=== PATIENT | female | born 1960 | race Caucasian/White ===

== ENCOUNTER 2019-02-03 22:08 | Observation (INO) | payer OTHER ==
--- OUTSIDE RECORDS SUMMARY | 2019-02-03 22:11 | XMS REPORT | Clinical Summary ---
:[address] [facility] Address [address] [place] [address] Care Team Providers Name Role Phone StephanieLambert Primary Care Provider Allergies Active Allergy Reactions Severity Noted Date Comments Johnnie Inhibitors Other (See Comments) High 01/19/2019 Cognitive stupor Codeine Rash Low 01/19/2019 Hydrocodone-Acetaminophe Rash Low 01/19/2019 n Metoprolol Other (See Comments) High 01/19/2019 Cognitive stupor Oxycodone Rash Low 01/19/2019 Promethazine Other (See Comments) High 01/19/2019 Visual hallucination Sulfa (Sulfonamide Hives, Shortness Of High 01/19/2019 Antibiotics) Breath Medications Medication Sig Dispensed Refills Start End Status Date Date zafirlukast Take 20 mg by 0 Active (ACCOLATE) 20 MG mouth 2 (two) tabletIndications: times daily. Maintenance Therapy for Asthma levothyroxine Take 100 mcg by 0 Active (SYNTHROID, mouth nightly. LEVOTHROID) 100 MCG tablet albuterol HFA Inhale 2 puffs by 0 Active (VENTOLIN HFA) 90 mouth via inhaler mcg/actuation inhaler every 6 (six) hours as needed for Wheezing. diclofenac (VOLTAREN) Apply 2 g 0 Active 1 % Gel topically daily as needed. levalbuterol (XOPENEX Inhale 1 puff by 0 Active HFA) 45 mcg/actuation mouth via inhaler inhaler every 6 (six) hours as needed for Wheezing. leflunomide (ARAVA) Take 20 mg by 0 Active 20 MG mouth nightly. tabletIndications: rheumatoid arthritis adalimumab Inject 40 mg 0 Active (HUMIRA,CF,) 40 subcutaneously mg/0.4 mL SyKt every 14 (fourteen) days. temazepam (RESTORIL) Take 30 mg by 0 Active 30 mg capsule mouth every night as needed for Sleep. vilazodone (VIIBRYD) Take 40 mg by 0 Active 20 mg mouth daily. tabletIndications: major depressive disorder dextroamphetamine Take 10 mg by 0 Active (DEXTROSTAT) 10 MG mouth 2 (two) tabletIndications: times daily Am Attention-Deficit and noon . Hyperactivity Disorder dextroamphetamine Take 5 mg by 0 Active (DEXTROSTAT) 5 MG mouth daily At tablet 1600 . QUEtiapine (SEROQUEL) Take 100 mg by 0 Active 100 MG tablet mouth nightly. QUEtiapine (SEROQUEL) Take 25 mg by 0 Active 25 MG tablet mouth every morning. divalproex (DEPAKOTE) Take 250 mg by 0 Active 250 MG 24 hr tablet mouth daily. divalproex (DEPAKOTE) Take 125 mg by 0 Active 125 MG EC tablet mouth At noon . irbesartan (AVAPRO) Take 300 mg by 0 Active 300 MG tablet mouth daily. rosuvastatin Take 40 mg by 0 Active (CRESTOR) 40 MG mouth nightly. tablet nitroglycerin Place 0.4 mg 0 Active (NITROSTAT) 0.4 MG SL under the tongue tablet every 5 (five) minutes as needed for Chest pain Put 1 pill under tongue every 5min as needed for chest pain.No more than 3 doses in 15min.Call 911 if pain is unrelieved 5min after 1st dose . acetaminophen Take 1,500 mg by 0 Active (TYLENOL) 500 MG mouth every night tablet as needed for Pain. docusate sodium Take 1 capsule 20 capsule 0 02/03/20 Active (COLACE) 100 MG (100 mg total) by 19 019 capsule mouth 2 (two) times daily as needed for Constipation for up to 10 days. aspirin/acetaminophen Take 1 tablet by 0 Discontinued /caffeine (EXCEDRIN mouth daily as 019 MIGRAINE ORAL) needed . acetaminophen Take 650 mg by 0 Discontinued (TYLENOL) 650 MG CR mouth every 8 019 tablet (eight) hours as needed for Pain. Active Problems Problem Noted Date DDD (degenerative disc disease), cervical 02/01/2019 Radiculopathy, cervical 02/01/2019 Cervical radiculopathy 02/01/2019 Encounters Date Type Specialty Care Team Description 02/02/2019 Outside Orders Radiology Guevara Evie M 02/01/2019 Anesthesia Event Dawn DeHEENA 02/01/2019 Surgery Mehran Griffith DISCECTOMY,ANTERIOR MD [place] CERVICAL W/FUSION 02/01/2019 - Hospital Encounter General Internal Mehran Griffith 02/02/2019 Medicine MD [place] 01/30/2019 Orders Only Mehran Griffith MD 01/19/2019 Hospital Encounter Pre-Admission Testing after 02/02/2018 Social History Tobacco Use Types Packs/Day Years Used Date Never Smoker Smokeless Tobacco: Never Used Alcohol Use Drinks/Week oz/Week Comments No Alcohol Habits Answer Date Recorded How often do you have a drink containing alcohol? Never 01/19/2019 How many drinks containing alcohol do you have on a typical Not asked day when you are drinking? How often do you have six or more drinks on one occasion? Not asked Sex Assigned at Date Recorded Not on file Job Start Date Occupation Industry Not on file Not on file Not on file Travel History Travel Start Travel End No recent travel history available. Last Filed Vital Signs Vital Sign Reading Time Taken Blood Pressure 121/64 02/02/2019 11:26 AM CDT Pulse 97 02/02/2019 11:26 AM CDT Temperature 36.8 C (98.3 F) 02/02/2019 11:26 AM CDT Respiratory Rate 18 02/02/2019 11:26 AM CDT Oxygen Saturation 93% 02/02/2019 11:26 AM CDT Inhaled Oxygen Concentration - - Weight 66.9 kg (147 lb 7.8 oz) 02/01/2019 7:41 AM CDT Height 160 cm (5' 3") 02/01/2019 7:41 AM CDT Body Mass Index 26.13 02/01/2019 7:41 AM CDT Plan of Treatment Not on file Implants Implanted Type Area Substance Abuse Therapist Device Shelf Model / Identifier Expiration Serial / Date Lot Bone Vivigen Matrix Frozen 1cc Bl-1500-001 - [id number] Bone N/A: Spine LIFENET:LIFENET 12/29/[id number] / Implanted: Qty: 1 on 02/01/2019 by Mehran Griffith MD Cervical TRANSPLANT SRV / [id number] Cage Acis 6mm 08.843.006s - [id number] Spine N/A: Spine SYNTHES:SYNTHES 08.843.006S / Implanted: Qty: 1 on 02/01/2019 by Mehran Griffith MD Cervical [place]: SPINE / [id number] Cage Acis 6mm 08.843.006s - [id number] Spine N/A: Spine SYNTHES:SYNTHES 08.843.006S / Implanted: Qty: 1 on 02/01/2019 by Mehran Griffith MD Cervical [place]: SPINE / [id number] Scr Cerv Sr Sd Va 4.0x16 Ti Ns 516 - [id number] Spine N/A: Spine SYNTHES:SYNTHES 516 / Implanted: Qty: 6 on 02/01/2019 by Mehran Griffith MD Cervical [place]: SPINE / Floseal N/A: Spine OSBORN 06/14/2020 [id number] / Implanted: Qty: 1 on 02/01/2019 by Mehran Griffith MD Cervical / [id number] 26 Mm Vectra Plate N/A: Spine Synthes 3.126 / Implanted: Qty: 1 on 02/01/2019 by Mehran Griffith MD Cervical / Procedures Procedure Name Priority Date/Time Associated Comments Diagnosis TRANSFUSION SERVICE 02/02/2019 6:01 REPORT - SCAN PM CDT XR SPINE CERVICAL 2 OR 3 ZAC 02/02/2019 9:19 Results for this VIEWS AM CDT procedure are in the results section. CBC W/PLT COUNT & AUTO Routine 02/02/2019 4:24 Results for this DIFFERENTIAL AM CDT procedure are in the results section. PHOSPHORUS Routine 02/02/2019 4:24 Results for this AM CDT procedure are in the results section. MAGNESIUM Routine 02/02/2019 4:24 Results for this AM CDT procedure are in the results section. BASIC METABOLIC PANEL Routine 02/02/2019 4:24 Results for this (7) AM CDT procedure are in the results section. CBC W/PLT COUNT & AUTO Routine 02/02/2019 4:24 Results for this DIFFERENTIAL AM CDT procedure are in the results section. [place] PROCESS DEVELOPMENT TECHNICIAN IN OR 30 STAT 02/01/2019 2:30 Results for this MINUTE INCREMENTS PM CDT procedure are in the results section. FL PROCESS DEVELOPMENT TECHNICIAN IN OR 30 Routine 02/01/2019 12:45 Results for this MINUTE INCREMENTS PM CDT procedure are in the results section. PROCEDURE W/ 02/01/2019 10:45 Cervical INTRAOPERATIVE AM CDT radiculopathy NEUROMONITORING Disc disease, degenerative, cervical Spondylolisthesis, cervical region Case Notes 2 HRSNo neuro monitoring scheduled at the time of posting this case Special Needs (SUPINE POSITION, C-ARM, MICROSCOPE, NEURO MONITORING: SSEP, MEP, REGULAR OR TABLE, DEPUY) PROCEDURE W/ 02/01/2019 10:45 AM Cervical radiculopathy OPERATING MICROSCOPE CDT Disc disease, degenerative, cervical Spondylolisthesis, cervical region Case Notes 2 HRSNo neuro monitoring scheduled at the time of posting this case Special Needs (SUPINE POSITION, C-ARM, MICROSCOPE, NEURO MONITORING: SSEP, MEP, REGULAR OR TABLE, DEPUY) PROCEDURE W/ C-ARM 02/01/2019 10:45 AM Cervical radiculopathy CDT Disc disease, degenerative, cervical Spondylolisthesis, cervical region Case Notes 2 HRSNo neuro monitoring scheduled at the time of posting this case Special Needs (SUPINE POSITION, C-ARM, MICROSCOPE, NEURO MONITORING: SSEP, MEP, REGULAR OR TABLE, DEPUY) DISCECTOMY,ANTERIOR 02/01/2019 10:45 Cervical radiculopathy CERVICAL W/INTERNAL AM CDT Disc disease, degenerative, cervical FIXATION Spondylolisthesis, cervical region Case Notes 2 HRSNo neuro monitoring scheduled at the time of posting this case Special Needs (SUPINE POSITION, C-ARM, MICROSCOPE, NEURO MONITORING: SSEP, MEP, REGULAR OR TABLE, DEPUY) DISCECTOMY,ANTERIOR 02/01/2019 10:45 Cervical radiculopathy CERVICAL W/FUSION AM CDT Disc disease, degenerative, cervical Spondylolisthesis, cervical region Case Notes 2 HRSNo neuro monitoring scheduled at the time of posting this case Special Needs (SUPINE POSITION, C-ARM, MICROSCOPE, NEURO MONITORING: SSEP, MEP, REGULAR OR TABLE, DEPUY) ABORH, MANUAL STAT 02/01/2019 9:24 AM CDT TYPE AND SCREEN, AUTOMATED Routine 02/01/2019 9:09 AM CDT after 02/02/2018 Results TRANSFUSION SERVICE REPORT - SCAN (02/02/2019 6:01 PM CDT) Narrative Performed At XR spine cervical 2 or 3 views (02/02/2019 9:19 AM CDT) Narrative Performed At FINAL REPORT [facility] Radiograph of the cervical spine Reason for exam: upright (standing or sitting), confirm hardware placement s/p ACDF Comparison:No priors Discussion: Status post ACDF at C5-C7 with plate and screw device, with placement of interbody spacers at C5-C6 and C6-C7. Vertebral body height is normal. There is mild anterolisthesis at C4-C5 and minimal retrolisthesis at C5-C6. No evidence of hardware fracture, or screw backout. There is prevertebral soft tissue edema, which is likely due to recent surgery. Signed: Juan Carlos Pickering MD Report Verified Date/Time:02/02/2019 10:03:49 Reading Location: [facility] Radiology Reading Room Procedure Note Interface, External Ris In - 02/02/2019 11:36 AM CDT FINAL REPORT Radiograph of the cervical spine Reason for exam: upright (standing or sitting), confirm hardware placement s/p ACDF Comparison: No priors Discussion: Status post ACDF at C5-C7 with plate and screw device, with placement of interbody spacers at C5-C6 and C6-C7. Vertebral body height is normal. There is mild anterolisthesis at C4-C5 and minimal retrolisthesis at C5-C6. No evidence of hardware fracture, or screw backout. There is prevertebral soft tissue edema, which is likely due to recent surgery. Signed: Juan Carlos Pickering MD Report Verified Date/Time: 02/02/2019 10:03:49 Reading Location: [facility] Radiology Reading Room Performing Organization Address City/State/Zipcode Phone Number [facility] CBC with platelet count + automated diff (02/02/2019 4:24 AM CDT) WBC 5.7 3.5 - 10.5 K/L [facility] RBC 4.15 3.93 - 5.22 M/L [facility] Hemoglobin 12.6 11.2 - 15.7 GM/DL [facility] Hematocrit 39.2 34.1 - 44.9 % [facility] MCV 94.5 79.4 - 94.8 fL [facility] MCH 30.4 25.6 - 32.2 pg [facility] MCHC 32.1 (L) 32.2 - 35.5 GM/DL [facility] RDW 13.8 11.7 - 14.4 % [facility] Platelets 144 (L) 150 - 450 K/CU MM [facility] MPV 12.9 (H) 9.4 - 12.3 fL [facility] nRBC 0 0 - 0 /100 WBC [facility] % Neutros 63 % [facility] % Lymphs 24 % [facility] % Monos 13 % [facility] % Eos 0 % [facility] % Baso 0 % [facility] # Neutros 3.56 1.56 - 6.13 K/L [facility] # Lymphs 1.37 1.18 - 3.74 K/L [facility] # Monos 0.71 (H) 0.24 - 0.36 K/L [facility] # Eos 0.00 (L) 0.04 - 0.36 K/L [facility] # Baso 0.02 0.01 - 0.08 K/L [facility] Immature Granulocytes-Relative 0 0 - 1 % [facility] Specimen Blood Performing Organization Address City/State/Zipcode Phone Number [address] [phone] CENTER Phosphorus (02/02/2019 4:24 AM CDT) Phosphorus 2.6 2.3 - 4.7 mg/dL [facility] Specimen Blood Performing Organization Address City/[facility]/Zipcode Phone Number [address] [address] CENTER Magnesium (02/02/2019 4:24 AM CDT) Magnesium 1.8 1.6 - 2.6 mg/dL [facility] Specimen Blood Performing Organization Address [facility] Phone Number [address] [phone] [place] Basic Metabolic Panel (02/02/2019 4:24 AM CDT) Sodium 139 136 - 145 meq/L [facility] Potassium 4.1 3.5 - 5.1 meq/L [facility] Chloride 110 (H) 98 - 107 meq/L [facility] CO2 22 22 - 29 meq/L [facility] BUN 13 7 - 21 mg/dL [facility] Creatinine 0.82 0.57 - 1.25 mg/dL [facility] Glucose 83 70 - 105 mg/dL [facility] Calcium 8.7 8.4 - 10.2 mg/dL [facility] EGFR 71Comment: ESTIMATED GFR IS mL/min/1.73 sq m [facility] NOT ACCURATE CREATININE MEDICAL CENTER CLEARANCE IN PREDICTING GLOMERULAR FILTRATION RATE. ESTIMATED GFR IS NOT APPLICABLE FOR DIALYSIS PATIENTS. Specimen Blood Performing Organization Address City/State/Zipcode Phone Number [address] [address] CENTER [place] radiation control specialist in or 30 minute increments (02/01/2019 2:30 PM CDT)Only the most recent of2 resultswithin the time period is included. Narrative Performed At FINAL REPORT [employer] Intraoperative fluoroscopy. CLINICAL HISTORY: ACDF C5-7 ANTERIOR. FINDINGS: Two fluoroscopically acquired images were acquired by the referring physician. An intraoperative verbal report was not requested. Fluoroscopy was not performed by the undersigned. Fluoroscopy time: 20 seconds. Two images. Signed: Delmar Shaikh MD Report Verified Date/Time:02/01/2019 15:45:42 Reading Location: [address] Consult Reading Room Procedure Note Interface, External Ris In - 02/01/2019 3:47 PM CDT FINAL REPORT Intraoperative fluoroscopy. CLINICAL HISTORY: ACDF C5-7 ANTERIOR. FINDINGS: Two fluoroscopically acquired images were acquired by the referring physician. An intraoperative verbal report was not requested. Fluoroscopy was not performed by the undersigned. Fluoroscopy time: 20 seconds. Two images. Signed: Delmar Shaikh MD Report Verified Date/Time: 02/01/2019 15:45:42 Reading Location: [address] Consult Reading Room Performing Organization Address City/[facility] Phone Number [employer] ABORH, manual (02/01/2019 9:24 AM CDT) ABO Grouping O [facility] Rh Factor POS [facility] Specimen Blood Performing Organization Address City/[facility] Phone Number [address] [address] [phone] Type and screen, automated (02/01/2019 9:09 AM CDT) ABO/RH AUTOMATED (BEAKER) O POSITIVE [facility] Ab Scrn NEGATIVE [facility] Specimen Blood Performing Organization Address [facility] Phone Number [address] [phone] after 02/02/2018 Insurance Payer Benefit Plan / Group Subscriber ID Type Phone Address [employer] - [place] CARE C[employer] HMO/POS/OPEN ACCESS xxxxxxxxxxx HMO/POS Advance Directives Patient has advance care planning documents, and code status on file. For more information, please contact:[address] [phone] Code Status Date Activated Date Inactivated Comments Full Code 02/01/2019 3:06 PM 02/02/2019 5:38 PM This code status was determined by: Patient Full Code 02/01/2019 8:07 AM 02/01/2019 3:06 PM This code status was determined by: Patient
--- OUTSIDE RECORDS SUMMARY | 2019-02-03 22:11 | XMS REPORT ---
:1960 [facility] Address [address] [place] [address] [address] [place] [address] Care Team Providers Name Role Phone LISE GRIFFITH Unavailable Unavailable Problems This patient has no known problems. Allergies, Adverse Reactions, Alerts This patient has no known allergies or adverse reactions. Medications This patient has no known medications. Results Test Description Test Time Test Comments Text Results Atomic Results Result Comments RAD, SPINE, 2019-02-02 10:03:00 Reason for FINAL REPORT PATIENT CERVICAL, 2 OR 3 exam:->upright ID: [id number] VIEWS (standing or sitting), Radiograph of the confirm hardware cervical spine Reason placement s/p for exam: upright ACDFShould this be (standing or sitting), performed at the confirm hardware bedside?->No placement s/p ACDF Comparison: No priors Discussion: [...] to recent surgery. Signed: Juan Carlos Pickering Verified Date/Time: 02/02/2019 10:03:49 Reading Location: [facility] Radiology Reading Room PHORUS 2019-02-02 06:25:00 Test Item Value Reference Range Comments PHOSPHORUS (BEAKER) (test zhbd=942) 2.6 mg/dL 2.3-4.7 [id number] 06:25:00 Test Item Value Reference Range Comments MAGNESIUM (BEAKER) (test ofgv=466) 1.8 mg/dL 1.6-2.6 BASIC METABOLIC [id number] 06:25:00 Test Item Value Reference Range Comments SODIUM (BEAKER) (test 139 meq/L 136-145 fcdb=276) POTASSIUM (BEAKER) (test 4.1 meq/L 3.5-5.1 poxf=631) CHLORIDE (BEAKER) (test 110 meq/L 98-107 mubb=580) CO2 (BEAKER) (test 22 meq/L 22-29 aycz=993) BLOOD UREA NITROGEN 13 mg/dL 7-21 (BEAKER) (test wbts=415) CREATININE (BEAKER) (test 0.82 mg/dL 0.57-1.25 cgyp=303) GLUCOSE RANDOM (BEAKER) 83 mg/dL 70-105 (test emqn=305) CALCIUM (BEAKER) (test 8.7 mg/dL 8.4-10.2 gmdz=508) EGFR (BEAKER) (test 71 mL/min/1.73 sq m ESTIMATED GFR IS NOT lhgg=9636) ACCURATE CREATININE CLEARANCE IN PREDICTING GLOMERULAR FILTRATION RATE. ESTIMATED GFR IS NOT APPLICABLE FOR DIALYSIS PATIENTS. CBC W/PLT COUNT & AUTO [id number] 05:52:00 Test Item Value Reference Range Comments WHITE BLOOD CELL COUNT (BEAKER) (test ttoc=098) 5.7 K/ L 3.5-10.5 RED BLOOD CELL COUNT (BEAKER) (test kchc=250) 4.15 M/ L 3.93-5.22 HEMOGLOBIN (BEAKER) (test zjgs=678) 12.6 GM/DL 11.2-15.7 HEMATOCRIT (BEAKER) (test ugda=659) 39.2 % 34.1-44.9 MEAN CORPUSCULAR VOLUME (BEAKER) (test zkat=809) 94.5 fL 79.4-94.8 MEAN CORPUSCULAR HEMOGLOBIN (BEAKER) (test 30.4 pg 25.6-32.2 ucmw=533) MEAN CORPUSCULAR HEMOGLOBIN CONC (BEAKER) (test 32.1 GM/DL 32.2-35.5 bfdf=413) RED CELL DISTRIBUTION WIDTH (BEAKER) (test 13.8 % 11.7-14.4 owvx=619) PLATELET COUNT (BEAKER) (test iiuf=154) 144 K/CU MM 150-450 MEAN PLATELET VOLUME (BEAKER) (test evcq=834) 12.9 fL 9.4-12.3 NUCLEATED RED BLOOD CELLS (BEAKER) (test 0 /100 WBC 0-0 haij=846) NEUTROPHILS RELATIVE PERCENT (BEAKER) (test 63 % iucc=430) LYMPHOCYTES RELATIVE PERCENT (BEAKER) (test 24 % artq=585) MONOCYTES RELATIVE PERCENT (BEAKER) (test 13 % olpq=525) EOSINOPHILS RELATIVE PERCENT (BEAKER) (test 0 % yasd=844) BASOPHILS RELATIVE PERCENT (BEAKER) (test 0 % coxm=298) NEUTROPHILS ABSOLUTE COUNT (BEAKER) (test 3.56 K/ L 1.56-6.13 ckmj=507) LYMPHOCYTES ABSOLUTE COUNT (BEAKER) (test 1.37 K/ L 1.18-3.74 tvey=418) MONOCYTES ABSOLUTE COUNT (BEAKER) (test 0.71 K/ L 0.24-0.36 ypqe=636) EOSINOPHILS ABSOLUTE COUNT (BEAKER) (test 0.00 K/ L 0.04-0.36 qtkw=815) BASOPHILS ABSOLUTE COUNT (BEAKER) (test 0.02 K/ L 0.01-0.08 isdg=311) IMMATURE GRANULOCYTES-RELATIVE PERCENT (BEAKER) 0 % 0-1 (test rzhu=4859) [place], C2 TACTICAL ANALYSIS TECHNICIAN IN OR/30 MINUTE [id number] 15:45:00Reason for exam:-> ACDF C5-7 ANTERIORFINAL REPORT Intraoperative fluoroscopy. CLINICAL HISTORY: ACDF C5-7 ANTERIOR. FINDINGS: Two fluoroscopically acquired images were acquired by the referring physician. An intraoperative verbal report was not requested. Fluoroscopy was not performed by the undersigned. Fluoroscopy time: 20 seconds. Two images. Signed: Delmar Shaikh MDReport Verified Date/Time: 02/01/2019 15:45:42 Reading Location: [address] Consult Reading Room [place], C2 TACTICAL ANALYSIS TECHNICIAN IN OR/30 MINUTE [id number] 12: 46:00Reason for exam:->Cervical radiculopathyFINAL REPORT Cervical spine. CLINICAL HISTORY: Cervical radiculopathy. COMPARISON STUDY: None. FINDINGS: A single, lateral intraoperative fluoroscopically acquired image is submitted for interpretation. A radiopaque marker is seen anteriorly at the C6/C7 level. An intraoperativeverbal report was given to Dr. Griffith who is in agreement. Signed: Delmar Shaikh MDReport Verified Date/Time: 02/01/2019 12:46:41 Reading Location: [address] Consult Reading Room
[2019-02-03] MEDS ORDERED: TRAMADOL HCL 50 MG TAB ONE (23:13)
[2019-02-03 23:26] LABS: Absolute Lymphocytes (CBC) 2.1 K/uL (0.7-4.9); Absolute Monocytes 0.7 K/uL (0.1-1.3); Absolute Neutrophil 1.5 K/uL (1.8-8.0); Basophils % 0.7 % (0-1.3); Eosinophils % 3.7 % (0-4.4); Lymphocytes % 47.5 % (15.3-44.8); MPV 11.6 fL (7.6-11.3); Protime INR 1.1; RBC Red Blood Cell Count 4.16 M/uL (3.86-4.86)
[2019-02-03 23:41] LABS: ALT/SGPT 14 U/L (12-78); AST/SGOT 25 U/L (15-37); Albumin 3.2 g/dL (3.4-5.0); Alkaline Phosphatase 108 U/L (45-117); BUN Blood Urea Nitrogen 11 mg/dL (7-18); Bicarbonate 26 mmol/L (21-32); Bilirubin Direct 0.1 mg/dL (0-0.2); Bilirubin Total 0.3 mg/dL (0.2-1.0); Glucose Level 84 mg/dL (74-106); Magnesium 1.9 mg/dL (1.8-2.4); NT PRO-BNP 202 pg/mL (<125); Potassium 3.6 mmol/L (3.5-5.1); Protein, Total 7.6 g/dL (6.4-8.2); Sodium Level 141 mmol/L (136-145); Troponin (Emerg Dept Use Only) < 0.02 ng/mL (0.0-0.045)
[2019-02-04 00:31] LABS: Barbiturates NEGATIVE (NEGATIVE); Benzodiazepines POSITIVE (NEGATIVE); Cocaine NEGATIVE (NEGATIVE); METHAMPHETAM NEGATIVE (NEGATIVE); Methadone NEGATIVE (NEGATIVE); Opiates NEGATIVE (NEGATIVE); Phencyclidine NEGATIVE (NEGATIVE); THC Cannibis NEGATIVE (NEGATIVE)
[2019-02-04 00:51] LABS: Urine Blood 1+ (NEG); Urine Glucose NEGATIVE (NEG); Urine Specific Gravity 1.015 (1.005-1.030)
[2019-02-04 00:52] LABS: Urine Protein NEGATIVE (NEG); Urine pH 7.5 (5.0-7.0)
--- NOTE | 2019-02-04 01:23 | ER ---
Nurse's Notes [facility] Name: Angelica Daily Age: 58 yrs Sex: Female : 1960 Arrival Date: 02/03/2019 Time: 22:12 Bed 4 Private MD: Diagnosis: Altered mental status. S/P Neck surgery Presentation: 02/03 21:54 Presenting complaint: EMS states: Family reports pt suddenly became altered and was ea swaying while getting ready for bed, pt had neck surgery on Wednesday family denies prior history of confusion. EMS states upon arrival pt remained confused for about 20 minutes and then symptoms subsided. EMS reports pt was swaying while standing but did not have weakness on either extremity and speech was clear. Transition of care: patient was not received from another setting of care. Onset of symptoms was February 03, 2019. Risk Assessment: Do you want to hurt yourself or someone else? Patient reports no desire to harm self or others. Initial Sepsis Screen: Does the patient meet any 2 criteria? HR > 90 bpm. Does the patient have a suspected source of infection? No. Patient's initial sepsis screen is negative. Care prior to arrival: None. 21:54 Method Of Arrival: EMS: [facility] ea 21:54 Acuity: ILIR 3 ea Triage Assessment: 21:54 General: Appears in no apparent distress. Behavior is appropriate for age. Pain: ea Complains of pain in neck. EENT: Surgical incision to neck, pt reports she had C-spine repair. . Neuro: Level of Consciousness is awake, alert, obeys commands, Oriented to person, place, time, situation, Secretary Bookkeeper are equal bilaterally Moves all extremities. Speech is normal, Facial symmetry appears normal. Cardiovascular: Patient's skin is warm and dry. Respiratory: Airway is patent Respiratory effort is even, unlabored, Respiratory pattern is regular, symmetrical. Derm: Skin is dry, Skin is pale, Skin temperature is warm. Historical: - Allergies: 22:39 Sulfacetamide Sodium; ea 22:39 Hydrocodone-Acetaminophen; ea 22:39 Oxycodone; ea 22:39 Codeine; ea 22:39 Phenergan; ea 22:39 DARRYL INHIBITORS; ea 22:39 HIgh tolerance to PO Benadryl; ea 22:39 Multi foods and inhalants; ea - Home Meds: 22:48 Excedrine Migraine [Active]; Tylenol Extra Strength 500 mg oral tab as needed [Active]; ea Accolate 20 mg Oral tab 1 tab 2 times per day [Active]; levothyroxine 100 mcg tab 1 tab once daily [Active]; Proventil Inhl [Active]; voltarin gel topical [Active]; Xopenex 1.25 mg/3 mL Inhl nebu as needed [Active]; leflunomide 20 mg oral tab 1 tab once daily [Active]; Humira subcutaneous subcutaneous [Active]; Restoril 30 mg Oral cap 1 cap once daily [Active]; Viibryd 20 mg oral tab once daily [Active]; dextroamphetamine oral oral [Active]; Seroquel 25 mg Oral tab 1 tab 2 times per day [Active]; Depakote ER 250 mg Oral Tb24 [Active]; irbesartan 300 mg oral tab 1 tab once daily [Active]; rosuvastatin 40 mg oral tab 1 tab once daily [Active]; nitroglycerin 0.4 mg SL subl 1 tab as needed [Active]; - PMHx: 22:39 Hypertension; Asthma; ankylosing spondylitis arthritis; Rheumatoid Arthritis; ADHD; ea Depression; Migraines; Crohn's; Hypothyroidism; - PSHx: 22:39 Left arm surgery; sinus surgery; ea - Immunization history:: Adult Immunizations up to date. - Social history:: Smoking status: Patient/guardian denies using tobacco. - Ebola Screening: : No symptoms or risks identified at this time. Screenin:25 Abuse screen: Denies threats or abuse. Nutritional screening: No deficits noted. ea Tuberculosis screening: No symptoms or risk factors identified. Fall Risk Secondary diagnosis (15 points) impaired mobility. Assessment: 21:54 Reassessment: see triage assesment. ea 22:45 Reassessment: Patient appears in no apparent distress at this time. Patient is alert, rr5 oriented x 3, equal unlabored respirations, skin warm/dry/pink. complaints of headache. ED provider aware with order made and carried out. 23:35 Reassessment: Patient appears in no apparent distress at this time. came back from CT rr5 scan, placed on bed comfortably. 02/04 00:00 Reassessment: Patient and/or family updated on plan of care and expected duration. Pain ea level reassessed. Patient is alert, oriented x 3, equal unlabored respirations, skin warm/dry/pink. 01:15 Reassessment: Patient appears in no apparent distress at this time. complaining of rr5 headache. ED provider informed with order made and carried out. 01:50 Reassessment: Patient and/or family updated on plan of care and expected duration. Pain ea level reassessed. Patient is alert, oriented x 3, equal unlabored respirations, skin warm/dry/pink. 02:00 Reassessment: Patient appears in no apparent distress at this time. Patient is alert, rr5 oriented x 3, equal unlabored respirations, skin warm/dry/pink. awaiting for room assignment. no complaints made. 02:15 Reassessment: Patient appears in no apparent distress at this time. Patient is alert, rr5 oriented x 3, equal unlabored respirations, skin warm/dry/pink. Patient states feeling better. Patient states symptoms have improved. 02:28 Reassessment: Patient and/or family updated on plan of care and expected duration. Pain ea level reassessed. Patient is alert, oriented x 3, equal unlabored respirations, skin warm/dry/pink. 03:09 Reassessment: Patient appears in no apparent distress at this time. Patient is alert, rr5 oriented x 3, equal unlabored respirations, skin warm/dry/pink. pain score of 2/10 much better now as verbalized by the patient Patient states feeling better. Patient states symptoms have improved. 03:14 Reassessment: Report called to receiving nurse on fourth floor. ea Vital Signs: 02/03 21:58 BP 128 / 75; Pulse 96; Resp 18; Temp 97.8; Pulse Ox 95% on R/A; ea 22:45 BP 140 / 82; Pulse 83; Resp 17; Pulse Ox 99% ; Pain 8/10; rr5 23:00 BP 140 / 82; Pulse 83; Resp 18; Pulse Ox 96% on R/A; ea 02/04 00:00 Pain 2/10; rr5 01:20 BP 121 / 72; Pulse 97; Resp 18; Pulse Ox 97% on R/A; ea 02:00 BP 118 / 77; Pulse 90; Resp 18; Pulse Ox 97% ; ea 03:09 BP 116 / 76; Pulse 82; Resp 17; Pulse Ox 99% ; rr5 03:09 Pain 2/10; rr5 ED Course: 02/03 21:54 Patient has correct armband on for positive identification. Bed in low position. Call ea light in reach. Side rails up X2. 21:54 Maintain EMS IV. Dressing intact. Good blood return noted. Site clean \T\ dry. Gauge \T\ ea site: 20 Left forearm. 22:12 Patient arrived in ED. fc 22:22 Triage completed. ea 22:23 Patient placed in an exam room, on a stretcher, on pulse oximetry. ea 22:31 Braulio June MD is Attending Physician. pkl 22:35 Garrison Barba, ZAIRA is Primary Nurse. rr5 22:59 XRAY Chest (1 view) In Process Unspecified. EDMS 23:37 CT Head Brain wo Cont In Process Unspecified. EDMS 02/04 01:21 Chano Landers MD is Hospitalizing Provider. pkl 02:27 No provider procedures requiring assistance completed. Patient admitted, IV remains in ea place. Administered Medications: 02/03 23:00 Drug: traMADol 50 mg Route: PO; rr5 02/04 00:00 Follow up: Response: No adverse reaction; Pain is decreased ea 01:20 Drug: Zofran 4 mg Route: IVP; Site: left forearm; rr5 02:33 Follow up: Response: No adverse reaction; Marked relief of symptoms ea 01:22 Drug: morphine 4 mg Route: IVP; Site: left forearm; rr5 02:32 Follow up: Response: No adverse reaction; Pain is decreased ea Outcome: 01:22 Decision to Hospitalize by Provider. pkl 01:50 Instructed on the need for admit. ea 03:12 Admitted to Med/surg accompanied by tech, room 413, with chart, Report called to ea Receiving nurse on fourth. 03:12 Condition: stable 03:25 Patient left the ED. cc3 Signatures: Dispatcher [employer] EDAL Braulio June MD MD pkSophie Donis RN RN Cinda Cerda RN RN Sheba Sims cc3 Garrison Barba, ZAIRA RN rr5
--- NOTE | 2019-02-04 01:23 | EDPHYS ---
Physician Documentation [facility] Name: Angelica Daily Age: 58 yrs Sex: Female : 1960 Arrival Date: 02/03/2019 Time: 22:12 Bed 4 Private MD: ED Physician Braulio June HPI: 02/03 22:45 This 58 yrs old Female presents to ER via EMS with unknown complaint. pkl 22:45 The patient presents with confusion, trouble concentrating. Onset: The symptoms/episode pkl began/occurred just prior to arrival. Patient had neck surgery 2 days ago. Took Dilaudid pill for pain at about 7 PM. At about 9 PM, patient became confused and unable to remember what is going on. EMS was called, patient remaioned confused for another 20 mins. and then symptoms subsided.. Historical: - Allergies: 22:39 Sulfacetamide Sodium; ea 22:39 Hydrocodone-Acetaminophen; ea 22:39 Oxycodone; ea 22:39 Codeine; ea 22:39 Phenergan; ea 22:39 DARRYL INHIBITORS; ea 22:39 HIgh tolerance to PO Benadryl; ea 22:39 Multi foods and inhalants; ea - Home Meds: 22:48 Excedrine Migraine [Active]; Tylenol Extra Strength 500 mg oral tab as needed [Active]; ea Accolate 20 mg Oral tab 1 tab 2 times per day [Active]; levothyroxine 100 mcg tab 1 tab once daily [Active]; Proventil Inhl [Active]; voltarin gel topical [Active]; Xopenex 1.25 mg/3 mL Inhl nebu as needed [Active]; leflunomide 20 mg oral tab 1 tab once daily [Active]; Humira subcutaneous subcutaneous [Active]; Restoril 30 mg Oral cap 1 cap once daily [Active]; Viibryd 20 mg oral tab once daily [Active]; dextroamphetamine oral oral [Active]; Seroquel 25 mg Oral tab 1 tab 2 times per day [Active]; Depakote ER 250 mg Oral Tb24 [Active]; irbesartan 300 mg oral tab 1 tab once daily [Active]; rosuvastatin 40 mg oral tab 1 tab once daily [Active]; nitroglycerin 0.4 mg SL subl 1 tab as needed [Active]; - PMHx: 22:39 Hypertension; Asthma; ankylosing spondylitis arthritis; Rheumatoid Arthritis; ADHD; ea Depression; Migraines; Crohn's; Hypothyroidism; - PSHx: 22:39 Left arm surgery; sinus surgery; ea - Immunization history:: Adult Immunizations up to date. - Social history:: Smoking status: Patient/guardian denies using tobacco. - Ebola Screening: : No symptoms or risks identified at this time. ROS: 22:45 Eyes: Negative for injury, pain, redness, and discharge, ENT: Negative for injury, pkl pain, and discharge, Neck: Negative for injury, pain, and swelling, Cardiovascular: Negative for chest pain, palpitations, and edema, Respiratory: Negative for shortness of breath, cough, wheezing, and pleuritic chest pain, Abdomen/GI: Negative for abdominal pain, nausea, vomiting, diarrhea, and constipation, Back: Negative for injury and pain, : Negative for injury, bleeding, discharge, and swelling, MS/Extremity: Negative for injury and deformity, Skin: Negative for injury, rash, and discoloration. 22:45 Neuro: Positive for altered mental status, confusion.. Exam: 22:45 Head/Face: Normocephalic, atraumatic. Eyes: Pupils equal round and reactive to light, pkl extra-ocular motions intact. Lids and lashes normal. Conjunctiva and sclera are non-icteric and not injected. Cornea within normal limits. Periorbital areas with no swelling, redness, or edema. ENT: Nares patent. No nasal discharge, no septal abnormalities noted. Tympanic membranes are normal and external auditory canals are clear. Oropharynx with no redness, swelling, or masses, exudates, or evidence of obstruction, uvula midline. Mucous membranes moist. Neck: Trachea midline, no thyromegaly or masses palpated, and no cervical lymphadenopathy. Supple, full range of motion without nuchal rigidity, or vertebral point tenderness. No Meningismus. Chest/axilla: Normal chest wall appearance and motion. Nontender with no deformity. No lesions are appreciated. Cardiovascular: Regular rate and rhythm with a normal S1 and S2. No gallops, murmurs, or rubs. Normal PMI, no JVD. No pulse deficits. Respiratory: Lungs have equal breath sounds bilaterally, clear to auscultation and percussion. No rales, rhonchi or wheezes noted. No increased work of breathing, no retractions or nasal flaring. Abdomen/GI: Soft, non-tender, with normal bowel sounds. No distension or tympany. No guarding or rebound. No evidence of tenderness throughout. Back: No spinal tenderness. No costovertebral tenderness. Full range of motion. Skin: Warm, dry with normal turgor. Normal color with no rashes, no lesions, and no evidence of cellulitis. MS/ Extremity: Pulses equal, no cyanosis. Neurovascular intact. Full, normal range of motion. 22:45 Neuro: Orientation: appropriate for stated age, Mentation: is normal, Cranial nerves: grossly normal, Cerebellar function: normal finger to nose testing, heel to estrada testing is normal, Motor: is normal, Sensation: is normal. Vital Signs: 21:58 BP 128 / 75; Pulse 96; Resp 18; Temp 97.8; Pulse Ox 95% on R/A; ea 22:45 BP 140 / 82; Pulse 83; Resp 17; Pulse Ox 99% ; Pain 8/10; rr5 23:00 BP 140 / 82; Pulse 83; Resp 18; Pulse Ox 96% on R/A; ea 02/04 00:00 Pain 2/10; rr5 01:20 BP 121 / 72; Pulse 97; Resp 18; Pulse Ox 97% on R/A; ea 02:00 BP 118 / 77; Pulse 90; Resp 18; Pulse Ox 97% ; ea 03:09 BP 116 / 76; Pulse 82; Resp 17; Pulse Ox 99% ; rr5 03:09 Pain 2/10; rr5 MDM: 0405 22:31 Patient medically screened. pkl 02/04 01:20 Data reviewed: vital signs, nurses notes, lab test result(s), EKG, radiologic studies, pkl CT scan. 02/03 22:41 Order name: Basic Metabolic Panel; Complete Time: 00:53 pkl 02/03 22:41 Order name: CBC with Diff; Complete Time: 00:53 pkl 02/03 22:41 Order name: LFT's; Complete Time: 00:53 pkl 02/03 22:41 Order name: Magnesium; Complete Time: 00:53 pkl 02/03 22:41 Order name: NT PRO-BNP; Complete Time: 00:53 pkl 02/03 22:41 Order name: PT-INR; Complete Time: 00:53 pkl 02/03 22:41 Order name: Troponin (emerg Dept Use Only); Complete Time: 00:53 pkl 02/03 22:41 Order name: XRAY Chest (1 view) pkl 02/03 22:41 Order name: CT Head Brain wo Cont pkl 02/03 22:42 Order name: UDS; Complete Time: 00:53 pkl 02/04 00:39 Order name: Urine Dipstick--Ancillary (enter results); Complete Time: 00:53 cm6 04 22:41 Order name: EKG; Complete Time: 22:42 pkl 02/03 22:41 Order name: Cardiac monitoring; Complete Time: 22:54 pkl 02/03 22:41 Order name: EKG - Nurse/Tech; Complete Time: 22:55 pkl 02/03 22:41 Order name: IV Saline Lock; Complete Time: 23:12 pkl 02/03 22:41 Order name: Labs collected and sent; Complete Time: 23:12 pkl 02/03 22:41 Order name: O2 Per Protocol; Complete Time: 22:55 pkl 02/03 22:41 Order name: O2 Sat Monitoring; Complete Time: 22:55 pkl Administered Medications: 02/03 23:00 Drug: traMADol 50 mg Route: PO; rr5 02/04 00:00 Follow up: Response: No adverse reaction; Pain is decreased ea 01:20 Drug: Zofran 4 mg Route: IVP; Site: left forearm; rr5 02:33 Follow up: Response: No adverse reaction; Marked relief of symptoms ea 01:22 Drug: morphine 4 mg Route: IVP; Site: left forearm; rr5 02:32 Follow up: Response: No adverse reaction; Pain is decreased ea Disposition: 02/04/19 01:22 Hospitalization ordered by Chano Landers for Observation. Preliminary diagnosis is Altered mental status. S/P Neck surgery. - Bed requested for Telemetry/MedSurg (observation). - Status is Observation. cc3 - Condition is Stable. - Problem is new. - Symptoms have improved. UTI on Admission? No Signatures: Dispatcher [employer] EDMS Braulio June MD MD pkl Garcia, Cindy RN Cinda Gabriel RN RN ea Cordel, Charlene cc3 Garrison Barba RN RN rr5 Corrections: (The following items were deleted from the chart) 03:04 01:22 Hospitalization Ordered by Chano Landers MD for Observation. Preliminary cg diagnosis is Altered mental status. S/P Neck surgery. Bed requested for Telemetry/MedSurg (observation). Status is Observation. Condition is Stable. Problem is new. Symptoms have improved. UTI on Admission? No. pkl 03:25 03:04 02/04/2019 01:22 Hospitalization Ordered by Chano Landers MD for Observation. cc3 Preliminary diagnosis is Altered mental status. S/P Neck surgery. Bed requested for Telemetry/MedSurg (observation). Status is Observation. Condition is Stable. Problem is new. Symptoms have improved. UTI on Admission? No. cg
[2019-02-04] MEDS ORDERED: ONDANSETRON 4 MG/2 ML VIAL ONE (01:25)
[2019-02-04] MEDS ORDERED: MORPHINE 4 MG/ML SYR ONE (01:25)
[2019-02-04] MEDS ORDERED: ACETAMINOPHEN 500 MG TAB PO PRN ×2 (03:50→13:32)
[2019-02-04] MEDS ORDERED: ONDANSETRON 4 MG/2 ML VIAL IV PRN (03:50)
[2019-02-04] MEDS ORDERED: TRAMADOL HCL 50 MG TAB PO PRN (03:50)
[2019-02-04] MEDS ORDERED: NA CHLORIDE 0.9% 1,000 ML IV SCH (03:50)
[2019-02-04 05:10] VITALS: BMI 26.9
--- NOTE | 2019-02-04 05:45 | P.HP ---
Certification for Inpatient Patient admitted to: Observation With expected LOS: <2 Midnights Practitioner: I am a practitioner with admitting privileges, knowledge of patient current condition, hospital course, and medical plan of care. Services: Services provided to patient in accordance with Admission requirements found in Title 42 Section 412.3 of the Code of Federal Regulations Patient History Date of Service: 02/04/19 Reason for admission: altered mental status History of Present Illness: Ms Daily is a 58 years old woman with multiple medical problems, who about 3 days ago had C-spine surgery, came to ED due to a transient episode of altered mental status. The patient took oral hydromorphone this afternoon, then she become confused for about 20 minutes. This medication is new for her since surgery. The patient denied any weakness, tingling or numbness. She has nor evident focal deficit. No history of fever or chills. Lab work shown normal WBC count, stable vital signs, CT head without acute abnormalities. At my encounter , the patient was alert and oriented. Allergies hydrocodone Allergy (Verified 10/02/16 08:48) Rash ragweed pollen Allergy (Verified 02/04/19 03:41) Shortness of breath Sulfa (Sulfonamide Antibiotics) Allergy (Verified 10/02/16 08:48) Hives/Rash DARRYL Inhibitors Adverse Reaction (Verified 02/04/19 03:41) Shortness of breath codeine Adverse Reaction (Verified 10/02/16 08:48) Nausea/Vomiting milk Adverse Reaction (Verified 02/04/19 03:41) Nausea/Vomiting promethazine [From Phenergan] Adverse Reaction (Verified 10/02/16 08:48) visual hallucinations Home medications list reviewed: Yes Home Medications: Acetaminophen [Tylenol Extra Strength] 500 mg PO DAILY PRN 10/02/16 Albuterol Inhaler [Ventolin Inhaler] 2 puff IH Q6H PRN 10/02/16 Dextroamphetamine Sulfate [Zenzedi] 5 mg PO DAILY 10/02/16 Dextroamphetamine Sulfate [Zenzedi] 10 mg PO BID 10/02/16 Divalproex ER [Depakote *ER*] 250 mg PO DAILY WITH BREAKFAST 10/02/16 Divalproex [Depakote Sprinkle] 125 mg PO BEDTIME 10/02/16 Levalbuterol [Xopenex] 1 puff IH Q6H PRN 10/02/16 Levothyroxine [Synthroid] 100 mcg PO [id number] 10/02/16 Quetiapine [Seroquel] 25 mg PO DAILY WITH BREAKFAST 10/02/16 Quetiapine [Seroquel] 100 mg PO BEDTIME 10/02/16 Temazepam [Restoril] 30 mg PO BEDTIME PRN 10/02/16 Zafirlukast [Accolate] 20 mg PO BID 10/02/16 Albuterol Sulfate [Proventil Hfa] 2 puff IH PRN 02/04/19 Diclofenac Sodium [Voltaren] 02/04/19 Diclofenac Sodium [Voltaren] 1 luís TOP DAILY 02/04/19 Irbesartan [Avapro] 300 mg PO DAILY 02/04/19 Nitroglycerin [Nitrostat*] 0.4 mg SL PRN PRN 02/04/19 Rosuvastatin [Crestor*] 40 mg PO DAILY 02/04/19 Vilazodone HCl [Viibryd] 20 mg PO DAILY 02/04/19 - Past Medical/Surgical History Has patient received pneumonia vaccine in the past: No Diabetic: No -: HTN -: tachycardia -: RA -: Asthma -: Ankylosing sondylitis arthritis -: ADHD -: depression -: migraines -: crohns -: sinus sx -: neck sx -: left arm sx - Family History Father -: Heart disease, Hypertension Mother -: Stroke - Social History Smoking Status: Never smoker Alcohol use: Yes CD- Drugs: No Caffeine use: Yes Place of Residence: Home Review of Systems 10-point ROS is otherwise unremarkable Physical Examination - Vital Signs Temperature: 98 F Blood Pressure: 116/59 Pulse: 85 Respirations: 16 Pulse Ox (%): 92 - Physical Exam General: Alert, In no apparent distress HEENT: Atraumatic, PERRLA, Mucous membr. moist/pink, EOMI, Sclerae nonicteric Neck: 2+ carotid pulse no bruit, No LAD Respiratory: Clear to auscultation bilaterally, Normal air movement Cardiovascular: Regular rate/rhythm, Normal S1 S2 Gastrointestinal: Normal bowel sounds, No tenderness Musculoskeletal: No tenderness Integumentary: No rashes, Skin lesion (right side neck surgical wound healing, clean.) Neurological: Normal speech, Normal strength at 5/5 x4 extr, Normal tone, Normal affect Lymphatics: No axilla or inguinal lymphadenopathy - Studies Laboratory Data (last 24 hrs) 02/03/19 11:10: PT 12.9 H, INR 1.10 02/03/19 11:10: WBC 4.4, Hgb 12.3, Hct 38.0, Plt Count 130 L 02/03/19 11:10: Sodium 141, Potassium 3.6, BUN 11, Creatinine 0.78, Glucose 84, Magnesium 1.9, Total Bilirubin 0.3, AST 25, ALT 14, Alkaline Phosphatase 108 Assessment and Plan - Problems (Diagnosis) (1) Acute encephalopathy Current Visit: Yes Status: Acute (2) Rheumatoid arthritis Current Visit: Yes Status: Acute Qualifiers: Rheumatoid arthritis location: unspecified site Rheumatoid factor presence : unspecified presence Qualified Code(s): M06.9 - Rheumatoid arthritis, unspecified (3) HTN (hypertension) Current Visit: Yes Status: Acute Qualifiers: Hypertension type: essential hypertension Qualified Code(s): I10 - Essential (primary) hypertension (4) ADHD Current Visit: Yes Status: Acute Qualifiers: Attention deficit-hyperactivity disorder type: unspecified Qualified Code(s ): F90.9 - Attention-deficit hyperactivity disorder, unspecified type - Plan Will admit the patient due to transient AMS, CT head without acute abnormalities , most likely medication related. Will order Brain MRI to rule out acute neurovascular event, if is normal, she may go home this AM. - Advance Directives Does patient have a Living Will: Yes Does patient have a Durable POA for Healthcare: Yes - Code Status/Comfort Care Code Status Assessed: Yes Code Status: Full Code
--- NOTE | 2019-02-04 07:46 | RAD REPORT ---
EXAM DESCRIPTION: RAD - Chest Single View - 02/03/2019 10:59 pm CLINICAL HISTORY: Altered mental status, hypertension COMPARISON: January 11, 2019 TECHNIQUE: AP portable chest image was obtained 2257 hours . FINDINGS: Scarring or linear atelectasis seen lateral lower right lung field. No mass or consolidati on. No failure or volume overload. Heart and vasculature are normal. No measurable pleural effusion a nd no pneumothorax. No acute bony abnormality seen. No acute aortic findings suspected. IMPRESSION: Atelectasis versus scarring right lung base.
--- NOTE | 2019-02-04 11:54 | RAD REPORT ---
EXAM DESCRIPTION: CT - Head Brain Wo Cont - 02/04/2019 1:27 am CLINICAL HISTORY: 58 years old and is Female; altered mental status TECHNIQUE: Axial computed tomography images of the head/brain without intravenous contrast. Sagitt al and coronal reformatted images were created and reviewed. EXAM COMPLETED DATE AND APPROX. TIME: 02/03/2019 11:[address] exam was performed using one or more of the following dose reducti on techniques: automated exposure control, adjustment of the mA and/or kV according to patient size , and/or use of iterative reconstruction technique. COMPARISON: No relevant prior studies available. FINDINGS: Limitations: None. Brain: Unremarkable. No hemorrhage. No significant white matter disease. No edema. Ventricles: Unremarkable. No ventriculomegaly. Bones/joints: Unremarkable. No acute fracture. Soft tissues: Unremarkable. Sinuses: There is mild ethmoid sinus thickening. Postoperative changes of the maxillary sinuses present. Mastoid air cells: Unremarkable as visualized. No mastoid effusion. IMPRESSION: No acute findings. Electronically signed by: Tanya Gamino MD 02/03/2019 11:41 PM CDT Due to temporary technical issues with the PACS/Fluency reporting system, reports are being signed by the in house radiologist as a courtesy to ensure prompt reporting. The interpreting radiologist is f ully responsible for the content of the report.
[2019-02-04] MEDS: TRAMADOL HCL 50 MG TAB PO PRN ×2 (13:00→21:11)
[2019-02-04] MEDS ORDERED: NITROGLYCERIN 0.4 MG/TAB SL PRN (13:32)
[2019-02-04] MEDS ORDERED: LEVALBUTEROL 0.63 MG/3 ML NEB IH PRN (13:32)
[2019-02-04] MEDS ORDERED: TEMAZEPAM 15 MG CAP PO PRN (13:32)
[2019-02-04] MEDS ORDERED: ALBUTEROL 2.5 MG/3 ML NEB SOL NEB PRN (15:45)
--- NOTE | 2019-02-04 17:29 | PN ---
Date of Progress Note: 02/04/2019 The patient feels fine this afternoon. According to her and her family, she is back at baseline. Th e question is whether or not it was a vascular insult and/or a reaction to medication. She was recei ving morphine IV postop, and then on discharge, she had some analgesics, which she took orally, and t he timing of the reaction to this was slightly prolonged, but the onset and the general clinical situ ation in the recovery is strongly suggestive of the reaction. She was therefore given tramadol 100 m g in attempt to avoid heavier narcotics. She will be re-evaluated with a CT scan in the morning and if it is negative, she could be discharged. An MRI was prevented to be done because of her recent noguera rgery, which had included some metal use in the neck. Remainder of vital signs are stable. She will be restarted on her home medication. HR/MODL Voice ID: [id number] Report ID: [id number]
[2019-02-04] MEDS ORDERED: ROSUVASTATIN 10 MG TAB PO SCH (21:00)
[2019-02-04] MEDS ORDERED: DIVALPROEX NA 125 MG CAP PO SCH (21:00)
[2019-02-04] MEDS: DEXTROAMPHETAMINE SULFATE 10 MG PO SCH (21:00)
[2019-02-04] MEDS ORDERED: QUETIAPINE 100MG TAB PO SCH (21:00)
[2019-02-04] MEDS: ZAFIRLUKAST 20 MG TAB PO SCH (21:09)
[2019-02-05] MEDS ORDERED: LEVOTHYROXINE SOD 0.1 MG TAB PO SCH (06:00)
[2019-02-05] MEDS ORDERED: DIVALPROEX ER 250 MG TAB PO SCH (08:00)
[2019-02-05] MEDS ORDERED: QUETIAPINE 25 MG TAB PO SCH (08:00)
[2019-02-05] MEDS: ZAFIRLUKAST 20 MG TAB PO SCH (08:40)
[2019-02-05 08:48] VITALS: O2SAT 94
[2019-02-05] MEDS ORDERED: HOME MED 1 EA UNK (Diclofenac Sodium [Voltaren] 1 APP) TOP SCH (09:00)
[2019-02-05] MEDS ORDERED: DEXTROAMPHETAMINE SULFATE 5 MG PO SCH (09:00)
[2019-02-05] MEDS ORDERED: VILAZODONE HCL 20 MG PO SCH (09:00)
[2019-02-05] MEDS ORDERED: IRBESARTAN 150 MG TAB PO SCH (09:00)
[2019-02-05] MEDS: DEXTROAMPHETAMINE SULFATE 10 MG PO SCH (10:11)
[2019-02-05 12:03] VITALS: BP 134/78; TEMP 97.3
--- NOTE | 2019-02-05 15:13 | PN ---
Date of Progress Note: 02/05/2019 The patient is seen back to baseline both medically and physically, in fact has better swallowing mec hanism and can move her neck better as well. She has also tolerated the pain using tramadol. CAT sc an has been done, awaiting for neurological interpretation. Given the fact that it is negative, she could be discharged with the addition of tramadol on a p.r.n. basis for pain and to see her neurosurg rolando in 2 weeks and me on a p.r.n. basis. HR/MODL Voice ID: [id number] Report ID: [id number]
--- NOTE | 2019-02-06 12:41 | RAD REPORT ---
EXAM DESCRIPTION: CT of the head without contrast CLINICAL HISTORY: [facility] COMPARISON: 02/03/2019 TECHNIQUE: Axial CT of the head obtained from the skull apex to the skull base without contrast. FINDINGS: No acute intracranial hemorrhage identified. No mass, mass effect, shift of the midline, a bnormal extra-axial fluid collection or CT evidence of acute ischemic change identified. The ventricu lar system is unremarkable. No acute abnormalities of the supratentorial white matter, basal gangli a, cerebellum, or brainstem. Mild mucosal thickening of the paranasal sinuses. No skull fracture identified. Visualized orbits a nd globes are unremarkable. IMPRESSION: 1. No acute intracranial abnormality identified. This exam was performed according to our departmental dose-optimization program, which includes autom ated exposure control, adjustment of the mA and/or kV according to patient size and/or use of iterati ve reconstruction technique. Electronically signed by: Roland Walker 02/05/2019 6:49 AM CDT Due to temporary technical issues with the PACS/Fluency reporting system, reports are being signed by the in house radiologist as a courtesy to ensure prompt reporting. The interpreting radiologist is f ully responsible for the content of the report.
--- NOTE | 2019-02-07 11:30 | EKG ---
Test Date: 2019-02-03 Test Time: 22:51:27 Hydrogen Treater: RR MEASUREMENT RESULTS: Intervals: Rate: 81 WI: 158 QRSD: 80 QT: 390 QTc: 453 [place]: P: 71 WI: 158 QRS: 57 T: 50 INTERPRETIVE STATEMENTS: Normal sinus rhythm Normal ECG Compared to ECG 10/02/2016 09:04:33 Ventricular premature complex(es) no longer present Electronically Signed On 02-04-19 16:43:45 CDT by Stanton Urrutia
== END 2019-02-05 14:02 | disposition home or self-care (01) ==
LOC: ER 22:08 → ERHOLD 02-04 02:05 → 4TH 02-04 03:14
PROVIDERS: ADMIT Family Medicine; ATTEND Internal Medicine
DX: G93.49 Other encephalopathy (principal); M06.9 Rheumatoid arthritis, unspecified; I10 Essential (primary) hypertension; F90.9 Attention-deficit hyperactivity disorder, unspecified type; J45.909 Unspecified asthma, uncomplicated; F32.9 Major depressive disorder, single episode, unspecified; Z88.6 Allergy status to analgesic agent; Z88.2 Allergy status to sulfonamides; Z91.011 Allergy to milk products; Z88.8 Allergy status to other drugs, medicaments and biological substances
CPT/HCPCS: 36415; 70450; 71045; 80048; 80076; 80307; 81003; 83735; 83880; 84484; 85025; 85610; 93005; 96374; 96375; 99285; G0378; J2405; J7030

== ENCOUNTER 2021-07-28 09:13 | Emergency (ER) | payer OTHER ==
[2021-07-28] MEDS ORDERED: predniSONE 20 MG TAB ONE (09:57)
[2021-07-28] MEDS ORDERED: KETOROLAC 30 MG/ML INJ ONE (09:58)
--- NOTE | 2021-07-28 11:07 | RAD REPORT ---
EXAM DESCRIPTION: Shoulder Right 2 View - 07/28/2021 9:40 am CLINICAL HISTORY: PAIN COMPARISON: No comparisons TECHNIQUE: Internal and external rotation views of the right shoulder were obtained. FINDINGS: There is no fracture or dislocation. AC joint degenerative changes are present with infer iorly and superiorly directed clavicle and acromion spurring. Acromial humeral joint space is narrow. Faint calcifications are present in the lateral aspect of the acromiohumeral joint space probably a calcific tendinitis/ tendinosis of the supraspinatus tendon. No pathologic bone changes. Ribs and par enchyma of the upper chest show no emergent finding. IMPRESSION: Calcific tendinitis/ tendinosis changes supraspinatus tendon. Inferiorly directed AC joint spurring encroaching on the acromial humeral joint space.
--- NOTE | 2021-07-28 11:12 | EDPHYS ---
Physician Documentation [facility] Name: Angelica Daily Age: 60 yrs Sex: Female : 1960 Arrival Date: 07/28/2021 Time: 09:18 Bed 23 Private MD: Mingo Dobbs HPI: 07/28 11:19 This 60 yrs old Female presents to ER via Ambulatory with complaints of kb Shoulder Pain. 11:19 The patient or guardian complains of decreased range of motion, pain, that is chronic. kb right shoulder. Context: [place] resulted from from a chronic condition, after an old injury, The patient experiences decreased range of motion, The patient reports no obvious deformity. Onset: The symptoms/episode began/occurred 10 year(s) ago, and became worse 2.5 month(s) ago. Modifying factors: the symptoms are alleviated by nothing. The symptoms are aggravated by nothing. Associated signs and symptoms: The patient has no apparent associated signs or symptoms. Severity of symptoms: At their worst the symptoms were moderate, in the emergency department the symptoms are unchanged. Treatment prior to arrival includes: no previous treatment. The patient has not experienced similar symptoms in the past. The patient has not recently seen a physician. Pt reports she has had problems with right shoulder for 10 years. Has had injections into the joint several times in the past, last time was in October. States pain returned in May after being [place] and it has not gotten better. . Historical: - Allergies: 09:22 DARRYL INHIBITORS; aa5 09:22 Codeine; aa5 09:22 HIgh tolerance to PO Benadryl; aa5 09:22 Hydrocodone-Acetaminophen; aa5 09:22 Multi foods and inhalants; aa5 09:22 Oxycodone; aa5 09:22 Phenergan; aa5 09:22 Sulfa (Sulfonamide Antibiotics); aa5 09:22 Lisinopril; aa5 09:22 Metoprolol Tartrate; aa5 09:22 Vicodin; aa5 09:22 Percocet; aa5 09:22 Corlanor; aa5 - PMHx: 09:22 adhd; ankylosing spondylitis arthritis; Asthma; Crohn's; Depression; Hypertension; aa5 Hypothyroidism; Migraines; Rheumatoid Arthritis; - Immunization history:: Client reports receiving the 2nd dose of the Covid vaccine. - Social history:: Smoking status: Patient denies any tobacco usage or history of. ROS: 11:18 Constitutional: Negative for fever, chills, and weight loss. kb 11:18 MS/extremity: Positive for decreased range of motion, pain, of the anterior aspect of right shoulder. 11:18 All other systems are negative. Exam: 11:18 Constitutional: This is a well developed, well nourished patient who is awake, alert, kb and in no acute distress. Head/Face: Normocephalic, atraumatic. ENT: Moist Mucous membranes Respiratory: Respirations even and unlabored. No increased work of breathing, no retractions or nasal flaring. Skin: Warm, dry with normal turgor. Normal color. Neuro: Awake and alert, GCS 15, oriented to person, place, time, and situation. Moves all extremities. Normal gait. Psych: Awake, alert, with orientation to person, place and time. Behavior, mood, and affect are within normal limits. 11:18 Musculoskeletal/extremity: Extremities: grossly normal except: noted in the anterior aspect of right shoulder: decreased ROM, pain, ROM: limited active range of motion, in the anterior aspect of right shoulder, Circulation is intact in all extremities. Sensation intact. Vital Signs: 09:21 BP 150 / 89; Pulse 128; Resp 20 S; Temp 98.3(O); Pulse Ox 97% on R/A; Weight 75.3 kg aa5 (R); Height 5 ft. 4 in. (162.56 cm) (R); 09:38 BP 150 / 89; Pulse 128; Resp 18; Temp 98.3; Pulse Ox 98% ; aj2 09:21 Body Mass Index 28.49 (75.30 kg, 162.56 cm) aa5 MDM: 09:22 Patient medically screened. kb 11:17 Data reviewed: vital signs, nurses notes. Data interpreted: Pulse oximetry: on room air kb is 98 %. Interpretation: normal. Counseling: I had a detailed discussion with the patient and/or guardian regarding: the historical points, exam findings, and any diagnostic results supporting the discharge/admit diagnosis, radiology results, the need for outpatient follow up, a orthopedic surgeon, to return to the emergency department if symptoms worsen or persist or if there are any questions or concerns that arise at home. 07/28 09:29 Order name: Shoulder Right (2 View) XRAY; Complete Time: 11:11 kb Administered Medications: 09:37 Drug: Ketorolac 30 mg Route: IM; Site: right deltoid; aj2 09:37 Drug: predniSONE 40 mg Route: PO; aj2 Disposition: 07/29 05:49 Co-signature as Attending Physician, Mingo Pacheco MD I agree with the assessment and roma plan of care. Disposition Summary: 07/28/21 11:12 Discharge Ordered Location: Home kb Condition: Stable kb Diagnosis - Pain in right shoulder kb Followup: kb - With: Emergency Department - When: As needed - Reason: Worsening of condition Followup: kb - With: Private Physician - When: 2 - 3 days - Reason: Recheck today's complaints, Continuance of care, Re-evaluation by your physician Discharge Instructions: - Discharge Summary Sheet kb - Shoulder Pain, [id number] kb Forms: - Medication Reconciliation Form kb - Thank You Letter kb - Antibiotic Education kb - Prescription Opioid Use kb Prescriptions: - Prednisone 20 mg Oral Tablet - take 1 tablet by ORAL route once daily for 5 days; 5 tablet; Refills: 0, kb Product Selection Permitted Signatures: Dispatcher [employer] EDMS Paris Gomez, PRODUCTION STAGE MANAGER-C PRODUCTION STAGE MANAGER-Mingo Diaz MD MD cha Calderon, Audri, RN RN Andrez Case aj2 Corrections: (The following items were deleted from the chart) 07/28 09:36 09:22 Allergies: Sulfacetamide Sodium; cody ross
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
[2021-07-28 12:05] VITALS: BP 150/89; TEMP 98.3
[2021-07-28 12:06] VITALS: O2SAT 98
== END 2021-07-28 11:59 | disposition home or self-care (01) ==
LOC: ER 09:13
DX: M25.511 Pain in right shoulder (principal); I10 Essential (primary) hypertension; Z88.2 Allergy status to sulfonamides; Z88.5 Allergy status to narcotic agent; Z88.8 Allergy status to other drugs, medicaments and biological substances
CPT/HCPCS: 73030; 96372; 99283; J7512

== ENCOUNTER 2023-02-28 10:57 | Emergency (ER) | payer BC ==
--- OUTSIDE RECORDS SUMMARY | 2023-02-28 11:02 | XMS REPORT | Continuity of Care Document ---
:[address] [facility] t Address [address] [facility] [address] [place] [address] Care Team Providers Name Role Phone Lambert Brown MD Primary Care Physician Daniel Duarte MD Attending Clinician Cesia Meléndez Attending Clinician CESIA NERI Attending Clinician Unavailable Doctor Unassigned, [place] Attending Clinician Unavailable LISE GRIFFITH Attending Clinician Unavailable LISE GRIFFITH Admitting Clinician Unavailable Problems Condition Condition Condition Status Onset Resolution Last Treating Co mments Source Name Details Category Date Date Treatment Clinician Date DDD DDD Disease Active [facility] ([facility] (degenerat 4- Jessica kes janny disc janny disc 00:00: Medica l disease), disease), 00 Cent er cervical cervical Radiculopa Radiculopa Disease Active [facility] thy, thy, 4-03 [facility] cervical cervical 00:[facility]: Medica l 00 Center No known No known Disease Unive rs active active ity of problems problems [facility] Allergies, Adverse Reactions, Alerts Allergy Allergy Status Severity Reaction(s) Onset Inactive Treating Comm ents Source Name Type Date Date Clinician Johnnie Drug Active Other (See Cognitive [facility] Inhibito Intolera Comments) 01-19 stupor Renu es rs nce 00:00: Medical 00 Center Codeine Propensi Active Rash [facility] ty to 01-19 [facility] adverse 00:00: Medical reaction 00 Center s Hydrocod Propensi Active Rash 2018- [facility] one-Acet ty to 3-21 [facility] aminophe adverse 00:00: Medical n reaction 00 Center s Metoprol Drug Active Other (See 2019- Cognitive [facility] ol Intolera Comments) 01-19 stupor [facility] nce 00:00: Medical 00 Center Oxycodon Propensi Active Rash 2018- [facility] e ty to 3-21 [facility] adverse 00:00: Medical reaction 00 [place] s Prometha Drug Active Other (See 2019-[address] zine Intolera Comments) 01-19 hallucina Jessica kes nce 00:00: tion Medical 00 Center Sulfa Propensi Active Hives, [address] [facility] (Sulfona ty to Shortness Of 01-19 Jesscia kes mide adverse Breath 00:00: Medical Antibiot reaction 00 Center ics) s Johnnie Drug Active Other - See Cognitive Un sarai Inhibito Intolera comments - stupor ity of rs nce 00:00: [place] 00 Medical Branch JOHNNIE Drug Active High Other-Cmnt Univer s INHIBITO Class 3-21 ity of RS 00:00: [place] 00 Medical Branch SULFA Drug Active High SOB 2018- Univers (SULFONA Class 3-21 ity of MIDE 00:00: [place] ANTIBIOT 00 Medical ICS) Branch Sulfa Drug Active Nausea 2018- Univers (Sulfona Allergy and/or 3-21 ity of mide Vomiting 00:00: [place] Antibiot 00 Medical ics) Branch METOPROL DRUG Active High NAUSEA ONLY 2018- Uni vers OL INGREDI 2-12 ity of 00:00: [place] 00 Medical Branch CODEINE DRUG Active Low Rash 2018- Univers INGREDI 2-12 ity of 00:00: [place] 00 Medical Branch OXYCODON DRUG Active Low Hives 2018- Univers E INGREDI 2-12 ity of 00:00: [place] 00 Medical Branch Codeine Propensi Active Rash 2018- Univers ty to 2-12 ity of adverse 00:00: [place] reaction 00 Medical s Branch Metoprol Drug Active Other - See 2019- Cognitive Univers ol Intolera comments 2-12 stupor ity of nce 00:00: [place] 00 Medical Branch Oxycodon Propensi Active Rash 2018- Univer s e ty to 2-12 ity of adverse 00:00: [place] reaction 00 Medical s Branch BENZOCAI DRUG Active High Hallucinates 2009-11 Un sarai NE-BENZY 12-10 ity of L 00:00: [place] BENZOATE 00 Medical Branch HYDROCOD DRUG Active High Hives 2009-11 Univers ONE-ACET - ity of AMINOPHE 00:00: [place] N 00 Medical Branch PROMETHA DRUG Active High Hallucinates 2009-11 Un sarai ZINE INGREDI 12-10 ity of 00:00: [place] 00 Medical Branch Benzocai Propensi Active Hallucinatio 2009-11 Univers ne-Benzy ty to ns 12-10 ity of l adverse 00:00: [place] Benzoate reaction 00 Medica l s Branch Hydrocod Propensi Active Rash 2009-11 Univer s one-Acet ty to 12-10 ity of aminophe adverse 00:00: [place] n reaction 00 Medical s Branch Prometha Drug Active Other - See 2009-11 Hallucina Univers zine Intolera comments 12-10 tionsVisu ity of nce 00:00: al [place] 00 hallucina Medical tion Branch NO KNOWN Drug Active Univers ALLERGIE Class ity of S [facility] Social History Social Habit Start Date Stop Date Quantity Comments Source History SDOH [facility] Alcohol Std Medical Cente r Drinks History SDOH [facility] Alcohol Binge Medical [address] Tobacco use and 2021-05-16 2021-05-16 Never used Universit y of exposure 00:00:00 00:00:00 [facility] Alcohol intake 2019-02-14 2019-02-[address] Renu es 00:00:00 00:00:00 non-drinker of Medical Ce nter alcohol (finding) History SDOH 2019-01-19 2019-01-[address] [facility] Alcohol Frequency 00:00:00 00:00:00 [facility] Sex Assigned At [address] Jessica kes 00:00:00 00:00:00 Medical Center Smoking Status Start Date Stop Date Source Unknown if ever smoked [facility] Never smoker [facility] Medications Ordered Filled Start Stop Current Ordering Indication Dosage Frequency Signature Comments Components Source Medication Medication Date Date Medication? Clinician (SIG) Name Name QUEtiapine Yes 100mg Take 100 Un sarai 100 mg 7-16 mg by ity of tablet 13:36: mouth. [address] QUEtiapine 2020-0 Yes 100mg Take 100 Un sarai 100 mg 7-16 mg by ity of tablet 13:36: mouth. [address] QUEtiapine 2020-0 Yes 100mg Take 100 Un sarai 100 mg 7-16 mg by ity of tablet 13:36: mouth. [address] QUEtiapine 2020-0 Yes 100mg Take 100 Un sarai 100 mg 7-16 mg by ity of tablet 13:36: mouth. [address] QUEtiapine 2020-0 Yes 100mg Take 100 Un sarai 100 mg 7-16 mg by ity of tablet 13:36: mouth. [address] irbesartan 2020-0 Yes 300mg Take 300 Un sarai 300 mg 7-16 mg by ity of tablet 13:34: mouth. [address] levalbutero 0 Yes Inhale. Uni vers l (XOPENEX 7-16 ity of HFA) 45 13:34: [place] mcg/actuati 25 Medical on inhaler Branch irbesartan 2020-0 Yes 300mg Take 300 Un sarai 300 mg 7-16 mg by ity of tablet 13:34: mouth. [address] levalbutero 0 Yes Inhale. Uni vers l (XOPENEX 7-16 ity of HFA) 45 13:34: [place] mcg/actuati 25 Medical on inhaler Branch irbesartan 2020-0 Yes 300mg Take 300 Un sarai 300 mg 7-16 mg by ity of tablet 13:34: mouth. [address] levalbutero 2020-0 Yes Inhale. Uni vers l (XOPENEX 7-16 ity of HFA) 45 13:34: [place] mcg/actuati 25 Medical on inhaler Branch irbesartan 2020-0 Yes 300mg Take 300 Un sarai 300 mg 7-16 mg by ity of tablet 13:34: mouth. [address] levalbutero 2020-0 Yes Inhale. Uni vers l (XOPENEX 7-16 ity of HFA) 45 13:34: [place] mcg/actuati 25 Medical on inhaler Branch irbesartan 2020-0 Yes 300mg Take 300 Un sarai 300 mg 7-16 mg by ity of tablet 13:34: mouth. [address] levalbutero 0 Yes Inhale. Uni vers l (XOPENEX 7-16 ity of HFA) 45 13:34: [facility] [address] Medical on inhaler Branch acetaminoph 0 Yes 1500mg Take 1,500 Univers en 500 mg 7-16 mg by ity of tablet 13:34: mouth. [address] adalimumab 2020-0 Yes 40mg inject 40 Un sarai 40 mg/0.4 7-16 mg under ity of mL SyKt 13:34: the skin. [address] dextroamphe 2020-0 Yes 10mg Take 10 mg Univers tamine 10 7-16 by mouth. ity o f mg tablet 13:34: [address] divalproex 2020-0 Yes 250mg 250 mg. Uni vers 250 mg EC 7-16 ity of tablet 13:34: [address] acetaminoph 0 Yes 1500mg Take 1,500 Univers en 500 mg 7-16 mg by ity of tablet 13:34: mouth. [address] adalimumab 2020-0 Yes 40mg inject 40 Un sarai 40 mg/0.4 7-16 mg under ity of mL SyKt 13:34: the skin. [address] dextroamphe 2020-0 Yes 10mg Take 10 mg Univers tamine 10 7-16 by mouth. ity o f mg tablet 13:34: [address] divalproex 2020-0 Yes 250mg 250 mg. Uni vers 250 mg EC 7-16 ity of tablet 13:34: [address] acetaminoph 2020-0 Yes 1500mg Take 1,500 Univers en 500 mg 7-16 mg by ity of tablet 13:34: mouth. [address] adalimumab 2020-0 Yes 40mg inject 40 Un sarai 40 mg/0.4 7-16 mg under ity of mL SyKt 13:34: the skin. [address] dextroamphe 2020-0 Yes 10mg Take 10 mg Univers tamine 10 7-16 by mouth. ity o f mg tablet 13:34: [address] divalproex 2020-0 Yes 250mg 250 mg. Uni vers 250 mg EC 7-16 ity of tablet 13:34: [address] acetaminoph Yes 1500mg Take 1,500 Univers en 500 mg 7-16 mg by ity of tablet 13:34: mouth. [address] adalimumab 0 Yes 40mg inject 40 Un sarai 40 mg/0.4 7-16 mg under ity of mL SyKt 13:34: the skin. [address] dextroamphe Yes 10mg Take 10 mg Univers tamine 10 7-16 by mouth. ity o f mg tablet 13:34: [address] divalproex Yes 250mg 250 mg. Uni vers 250 mg EC 7-16 ity of tablet 13:34: [address] acetaminoph Yes 1500mg Take 1,500 Univers en 500 mg 7-16 mg by ity of tablet 13:34: mouth. [address] adalimumab Yes 40mg inject 40 Un sarai 40 mg/0.4 7-16 mg under ity of mL SyKt 13:34: the skin. [address] dextroamphe Yes 10mg Take 10 mg Univers tamine 10 7-16 by mouth. ity o f mg tablet 13:34: [address] divalproex Yes 250mg 250 mg. Uni vers 250 mg EC 7-16 ity of tablet 13:34: [address] rosuvastati Yes Univer s n 40 mg 7-15 ity of tablet 00:00: [address] rosuvastati Yes Univer s n 40 mg 7-15 ity of tablet 00:00: [address] rosuvastati Yes Univer s n 40 mg 7-15 ity of tablet 00:00: [address] rosuvastati Yes Univer s n 40 mg 7-15 ity of tablet 00:00: [address] rosuvastati Yes Univer s n 40 mg 7-15 ity of tablet 00:00: [address] traMADoL 50 Yes 50mg Take 50 mg Univers mg tablet 7-11 by mouth ity of 00:00: every 6 [place] 00 (six) Medical hours as Branch needed. ibuprofen 0 Yes 800mg Take 800 Uni vers 800 mg 7-11 mg by ity of tablet 00:00: mouth 3 (three) Medical times Branch daily with meals. ondansetron 0 Yes DISSOLVE 1 Univers 4 mg 7-11 TABLET ON ity of disintegrat 00:00: THE TONGUE [place] ing tablet 00 EVERY 8 Medica l HOURS Branch traMADoL 50 2020-0 Yes 50mg Take 50 mg Univers mg tablet 7-11 by mouth ity of 00:00: every 6 00 (six) Medical hours as Branch needed. ibuprofen 0 Yes 800mg Take 800 Uni vers 800 mg 7-11 mg by ity of tablet 00:00: mouth 3 (three) Medical times Branch daily with meals. ondansetron 0 Yes DISSOLVE 1 Univers 4 mg 7-11 TABLET ON ity of disintegrat 00:00: THE TONGUE [place] ing tablet 00 EVERY 8 Medica l HOURS Branch traMADoL 50 2020-0 Yes 50mg Take 50 mg Univers mg tablet 7-11 by mouth ity of 00:00: every 6 (six) Medical hours as Branch needed. ibuprofen 0 Yes 800mg Take 800 Uni vers 800 mg 7-11 mg by ity of tablet 00:00: mouth 3 (three) Medical times Branch daily with meals. ondansetron 0 Yes DISSOLVE 1 Univers 4 mg 7-11 TABLET ON ity of disintegrat 00:00: THE TONGUE [place] ing tablet 00 EVERY 8 Medica l HOURS Branch traMADoL 50 2020-0 Yes 50mg Take 50 mg Univers mg tablet 7-11 by mouth ity of 00:00: every 6 (six) Medical hours as Branch needed. ibuprofen 0 Yes 800mg Take 800 Uni vers 800 mg 7-11 mg by ity of tablet 00:00: mouth 3 00 (three) Medical times Branch daily with meals. ondansetron 2020-0 Yes DISSOLVE 1 Univers 4 mg 7-11 TABLET ON ity of disintegrat 00:00: THE TONGUE [place] ing tablet 00 EVERY 8 Medica l HOURS Branch traMADoL 50 2020-0 Yes 50mg Take 50 mg Univers mg tablet 7-11 by mouth ity of 00:00: every 6 (six) Medical hours as Branch needed. ibuprofen 2021-0 Yes 800mg Take 800 Uni vers 800 mg 7-11 mg by ity of tablet 00:00: mouth 3 00 (three) Medical times Branch daily with meals. ondansetron Yes DISSOLVE 1 Univers 4 mg 7-11 TABLET ON ity of disintegrat 00:00: THE TONGUE [place] ing tablet 00 EVERY 8 Medica l HOURS Branch levothyroxi Yes Univer s ne 100 mcg 7-01 ity of tablet 00:00: [place] 00 Medical Branch levothyroxi Yes Univer s ne 100 mcg 7-01 ity of tablet 00:00: [place] 00 Medical Branch levothyroxi Yes Univer s ne 100 mcg 7-01 ity of tablet 00:00: [place] Medical Branch levothyroxi Yes Univer s ne 100 mcg 7-01 ity of tablet 00:00: [place] 00 Medical Branch levothyroxi Yes Univer s ne 100 mcg 7-01 ity of tablet 00:00: [place] 00 Medical Branch VIIBRYD 40 2020- No 40mg Take 40 mg Univers mg tablet 04-29 by mouth ity o f 00:00: 00:00 at [place] 00 :00 bedtime. Medical Branch VIIBRYD 40 2020- No 40mg Take 40 mg Univers mg tablet 04-29 by mouth ity o f 00:00: 00:00 at [place] 00 :00 bedtime. Medical Branch VIIBRYD 40 2020- No 40mg Take 40 mg Univers mg tablet 04-29 by mouth ity o f 00:00: 00:00 at [place] 00 :00 bedtime. Medical Branch diltiazem Yes 120mg Take 120 Uni vers 120 mg 24 6-28 mg by ity of hr capsule 00:00: [facility] daily. Medical Branch diltiazem Yes 120mg Take 120 Uni vers 120 mg 24 6-28 mg by ity of hr capsule 00:00: [facility] daily. Medical Branch diltiazem Yes 120mg Take 120 Uni vers 120 mg 24 6-28 mg by ity of hr capsule 00:00: [facility] daily. Medical Branch diltiazem 2021-0 Yes 120mg Take 120 Uni vers 120 mg 24 6-28 mg by ity of hr capsule 00:00: mouth [place] daily. Medical Branch diltiazem 2020-0 Yes 120mg Take 120 Uni vers 120 mg 24 6-28 mg by ity of hr capsule 00:00: mouth [place] 00 daily. Medical Branch DULoxetine 2020-0 Yes TAKE 1 Unive rs 30 mg 6-22 CAPSULE BY ity of capsule 00:00: MOUTH IN [place] 00 THE Medical MORNING Branch DULoxetine 2020-0 Yes TAKE 1 Unive rs 30 mg 6-22 CAPSULE BY ity of capsule 00:00: MOUTH IN [place] THE Medical MORNING Branch DULoxetine 2020-0 Yes TAKE 1 Unive rs 30 mg 6-22 CAPSULE BY ity of capsule 00:00: MOUTH IN [place] 00 THE Medical MORNING Branch DULoxetine 2020-0 Yes TAKE 1 Unive rs 30 mg 6-22 CAPSULE BY ity of capsule 00:00: MOUTH IN [place] 00 THE Medical MORNING Branch DULoxetine 2020-0 Yes TAKE 1 Unive rs 30 mg 6-22 CAPSULE BY ity of capsule 00:00: MOUTH IN [place] 00 THE Medical MORNING Branch scopolamine 2020-0 Yes APPLY 1 Uni vers transdermal 6-21 PATCH ity of 1 mg over 3 00:00: TOPICALLY [place] days patch 00 TO THE Medical SKIN EVERY Branch 3 DAYS zafirlukast Yes Univer s 20 mg 6-21 ity of tablet 00:00: [place] 00 Medical Branch scopolamine 2020-0 Yes APPLY 1 Uni vers transdermal 6-21 PATCH ity of 1 mg over 3 00:00: TOPICALLY [place] days patch 00 TO THE Medical SKIN EVERY Branch 3 DAYS zafirlukast Yes Univer s 20 mg 6-21 ity of tablet 00:00: [place] 00 Medical Branch scopolamine 2020-0 Yes APPLY 1 Uni vers transdermal 6-21 PATCH ity of 1 mg over 3 00:00: TOPICALLY [place] days patch 00 TO THE Medical SKIN EVERY Branch 3 DAYS zafirlukast Yes Univer s 20 mg 6-21 ity of tablet 00:00: [place] 00 Medical Branch scopolamine 2020-0 Yes APPLY 1 Uni vers transdermal 6-21 PATCH ity of 1 mg over 3 00:00: TOPICALLY [place] days patch 00 TO THE Medical SKIN EVERY Branch 3 DAYS zafirlukast 2020-0 Yes Univer s 20 mg 6-21 ity of tablet 00:00: [place] [address] Medical Branch scopolamine 2020-0 Yes APPLY 1 Uni vers transdermal 6-21 PATCH ity of 1 mg over 3 00:00: TOPICALLY [place] days patch 00 TO THE Medical SKIN EVERY Branch 3 DAYS zafirlukast 2020-0 Yes Univer s 20 mg 6-21 ity of tablet 00:00: [address] Branch doxycycline 1-0 Yes 100mg Take 100 U nivers hyclate 100 6-07 mg by ity of mg capsule 00:00: mouth 2 [place] (two) Medical times Branch daily. leflunomide 2020-0 Yes Univer s 20 mg 6-07 ity of tablet 00:00: [address] predniSONE 1-0 Yes 10mg Take 10 mg U nivers 10 mg 6-07 by mouth ity of tablet 00:00: daily. [address] doxycycline 1-0 Yes 100mg Take 100 U nivers hyclate 100 6-07 mg by ity of mg capsule 00:00: mouth 2 [place] 00 (two) Medical times Branch daily. leflunomide 1-0 Yes Univer s 20 mg 6-07 ity of tablet 00:00: [address] predniSONE 1-0 Yes 10mg Take 10 mg U nivers 10 mg 6-07 by mouth ity of tablet 00:00: daily. [address] doxycycline 1-0 Yes 100mg Take 100 U nivers hyclate 100 6-07 mg by ity of mg capsule 00:00: mouth 2 [place] 00 (two) Medical times Branch daily. leflunomide 1-0 Yes Univer s 20 mg 6-07 ity of tablet 00:00: [address] predniSONE 2021-0 Yes 10mg Take 10 mg U nivers 10 mg 6-07 by mouth ity of tablet 00:00: daily. [address] doxycycline 1-0 Yes 100mg Take 100 U nivers hyclate 100 6-07 mg by ity of mg capsule 00:00: mouth 2 [place] 00 (two) Medical times Branch daily. leflunomide 2021-0 Yes Univer s 20 mg 6-07 ity of tablet 00:00: [place] [address] Medical Branch predniSONE 2020- Yes 10mg Take 10 mg U nivers 10 mg 6-07 by mouth ity of tablet 00:00: daily. [place] [address] Medical Branch doxycycline 2020- Yes 100mg Take 100 U nivers hyclate 100 6-07 mg by ity of mg capsule 00:00: mouth 2 [place] 00 (two) Medical times Branch daily. leflunomide Yes Univer s 20 mg 6-07 ity of tablet 00:00: [place] [address] Medical Branch predniSONE 2020- Yes 10mg Take 10 mg U nivers 10 mg 6-07 by mouth ity of tablet 00:00: daily. [address] Branch ondansetron 2020- No TAKE 1 Uni vers 4 mg tablet 04-07-16 TABLET BY it y of 00:00: 00:00 MOUTH [place] 00 :00 EVERY 6 Medical HOURS Branch NEEDED FOR NAUSEA ondansetron 2020- No TAKE 1 Uni vers 4 mg tablet 04-07-16 TABLET BY it y of 00:00: 00:00 MOUTH [place] 00 :00 EVERY 6 Medical HOURS Branch NEEDED FOR NAUSEA ondansetron 2020- No TAKE 1 Uni vers 4 mg tablet 04-07-16 TABLET BY it y of 00:00: 00:00 MOUTH [place] 00 :00 EVERY 6 Medical HOURS Branch NEEDED FOR NAUSEA zafirlukast Yes maintenance 20mg Q.5D Take [address] [facility] (ACCOLATE) 4-04 therapy for by mouth 2 [facility] 20 MG 15:38: asthma (two) Medical tablet 29 times Center daily. levothyroxi Yes 100ug QD Take [address] ne 4-04 mcg by [facility]ukes (SYNTHROID, 15:38: mouth Medic al LEVOTHROID) 29 nightly. Cent er 100 MCG tablet albuterol Yes 2{puff} Inhale [address] HFA 4-04 puffs by [facility] (VENTOLIN 15:38: mouth via Med ical HFA) 90 29 inhaler Center mcg/actuati every 6 on inhaler (six) hours as needed for Wheezing. diclofenac Yes 2g Apply [address] (VOLTAREN) 4-04 topically Luke s 1 % Gel 15:38: daily as Medica l 29 needed. [place] levalbutero Yes 1{puff} Inhale [address] l (XOPENEX 4-04 puff by [facility]ukes HFA) 45 15:38: mouth via Medic al mcg/actuati 29 inhaler Cente r on inhaler every 6 (six) hours as needed for Wheezing. 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 Medi mary 29 [place] adalimumab Yes 40mg Q14D Inject [address] (HUMIRA,CF, 4-04 mg Lukes ) 40 mg/0.4 15:38: subcutaneo Medical mL SyKt 29 usly every Center 14 (fourteen) days. temazepam Yes 30mg Take [address] (RESTORIL) 4-04 by mouth [facility]ukes 30 mg 15:38: every Medical capsule 29 night as Center needed for Sleep. 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 Medica l tablet 29 [place] dextroamphe Yes attention-d 10mg Q.5D Take [address] tamine 4-04 eficit by mouth 2 [facility]ukes (DEXTROSTAT 15:38: hyperactivi (two) Medical ) 10 MG 29 ty disorder times Cent er tablet daily Am and noon . dextroamphe Yes 5mg QD Take [address] tamine 4-04 by mouth [facility]ukes (DEXTROSTAT 15:38: daily At Ne dical ) 5 MG 29 1600 . [place] tablet QUEtiapine Yes 100mg QD Take [address] (SEROQUEL) 4-04 mg by [facility] 100 MG 15:38: mouth Medical tablet 29 nightly. [place] QUEtiapine Yes 25mg QD Take [address] (SEROQUEL) 4-04 by mouth [facility]ukes 25 MG 15:38: every Medical tablet 29 morning. [place] divalproex Yes 250mg QD Take [address] (DEPAKOTE) 4-04 mg by [facility] 250 MG 24 15:38: mouth Medical hr tablet 29 daily. [place] divalproex Yes 125mg Take [address] (DEPAKOTE) 4-04 mg by [facility] 125 MG EC 15:38: mouth At Medi mary tablet 29 noon . [place] irbesartan Yes 300mg QD Take [address] (AVAPRO) 4-04 mg by [facility] 300 MG 15:38: mouth Medical tablet 29 daily. [place] rosuvastati Yes 40mg QD Take [address] n (CRESTOR) 4-04 by mouth Luke s 40 MG 15:38: nightly. Medical tablet 29 [place] nitroglycer Yes .4mg Place 0.[address] in 4-04 mg under [facility]ukes (NITROSTAT) 15:38: the tongue Medical 0.4 MG SL 29 every 5 Center tablet (five) minutes as needed for Chest pain Put 1 pill under tongue every 5min as needed for chest pain.No more than 3 doses in 15min.Call 911 if pain is unrelieved 5min after 1st dose . acetaminoph Yes 1500mg Take 1,[address] en 4-04 mg by Lukes (TYLENOL) 15:38: mouth Medical 500 MG 29 every Center tablet night as needed for Pain. No known No [facility] medications [facility] [place] [facility] Vital Signs Vital Name Observation Time Observation Value Comments Source Systolic blood 2021-05-16 13:25:00 123 mm[Hg] [facility] Diastolic blood 2021-05-16 13:25:00 71 mm[Hg] [facility] Heart rate 2021-05-16 13:25:00 117 /min [facility] Body height 2021-05-16 13:25:00 160 cm [facility] Body weight 2021-05-16 13:25:00 79.379 kg [facility] BMI 2021-05-16 13:25:00 31.00 kg/m2 [facility] Procedures Procedure Date / Time Performed Performing Clinician [facility] e REFERRAL- 2021-05-09 05:01:00 Doctor Unassigned, No [facility] REQUEST/RESPONSE Name Medical Branch Encounters Start End Encounter Admission Attending Care Care Encounter Source Date/Time Date/Time Type Type Clinicians Facility Department ID 2021-05-26 2021-05-26 Telephone Felicia [facility] [id number] Univers 00:00:00 00:00:00 Daniel [place]lette [id number] it y of Surgical [id number] [place] as Specialti [id number] Ne dical es 198 [facility] [place] 2021-05-16 2021-05-16 [facility] [id number] Univers 08:38:50 23:59:00 Encounter Daniel [place] [id number] ity of Surgical [id number] [place] as Specialti [id number] Me dical es 809 [facility] [place] 2021-05-16 2021-05-16 [facility] [id number] Univers 08:13:50 08:28:50 Visit Cesia [facility] [id number] it y of Surgical [id number] [place] as Specialti [id number] Ne dical es 198 [facility] [place] 2021-05-16 2021-05-16 Outpatient R [facility] [id number] Univers 08:00:00 08:00:00 CESIA ity of [facility] 2021-05-09 2021-05-09 Orders Doctor YOHANA [id number] Univers 00:00:00 00:00:00 Only Unassigned, EMMA [id number] ity of [place] [facility] [id number] [place] as [id number] [address] Results Test Description Test Time Test Comments Results Result Sour e Comments RAD, SPINE, 2019-04- S/p C5-7 FINAL REPORT PATIENT CERVICAL, 2 OR 3 2 acdfReason for ID: [id number] Exam: VIEWS 07:18:00 Exam:->s/p Cervical spine AP cervical spinal lateral History: Neck fusion, encounter pain Comparison: January for postoperative 2018 Findings: No wound check acute fracture. Stable Anterolisthesis of C4 on C5. Anterior cervical discectomy and fusion of C5-C7 with plate-screw construct and interbody cage. Mild multilevel facet arthropathy. Impression: No acute osseous abnormality Anterior cervical discectomy and fusion of C5-C7. No complication Signed: Jaylon Scales MDReport Verified Date/Time: 04/12/2019 07:18:52 T-LATENCY 2019-01-31 IOM INTRAOPERATIVE SEP, UPPER LIMBS 2 MONITORING REPORT - SURGERY 08:32:00 Patient Name: Asif Morrow [facility] Surgery Date: 02/01/2019 [place] Pro: [id number] Monitoring began at 1116 and finished at 1432 Surgeon: Lise Griffith MD Examining Physician: Jam Erazo MD Monitoring Technologist: MOSES Cruz Procedure: ACDF C5-7 Stimulation Parameters: Ulnar nerves individually stimulated at the wrist Rate 4.4Hz, Intensity 35mA, Duration 0.3ms Posterior Tibial nerves individually stimulated at the ankle Rate 3.63Hz, Intensity 65mA, Duration 0.3ms Filters 30-500Hz, [place] Free-running EEG recorded with bipolar derivation, using modified International 10/20 placements: C3-FPZ, C4-FPZ TcMEPs of bilateral ADM/APB and Adductor Hallicus muscle groups Recording Parameters: EP1, EP2, CV, CP3, CP4, and FPz Description: Intraoperative neurophysiological monitoring was performed using a combination of upper and lower extremity somatosensory evoked potentials, TcMEPs and EEGs. A real-time connection with the examining neurologist was established and maintained throughout the operative procedure by the monitoring technologist. Upper extremity somatosensory evoked potentials were recorded centrally at the cervical and corticals following ulnar nerve stimulation. Lower extremity somatosensory evoked potentials were recorded centrally at the cervical and cortical levels following posterior tibial nerve stimulation at the ankle. All SSEPs were well formed in all extremities at baselines. All SSEPs were stable at baselines with no changes from baselines throughout procedure. Surgeon aware of all SSEP responses during case and at closing. TcMEP responses were obtained post-positioning and were present in both upper and lower extremities at baselines; responses were stable with baselines at closing. Surgeon aware. Free-running EEG remained symmetrical throughout the procedure with no focal changes noted to occur. Conclusion: These results suggest the absence of untoward, secondary effects on anterior and posterior column function as a consequence of this surgical procedure. Jam Erazo M.D., FACNS, FAAN, FAESProfessor of Neurology, Coast Plaza HospitalDirector, [facility] Epilepsy [facility] Neurophysiology LabM54.12, M50.30 , SPINE, 0 Reason for FINAL REPORT PATIENT CERVICAL, 2 OR 3 4 exam:->upright ID: [id number] Radiograph VIEWS 10:03:00 (standing or of the cervical spine sitting), confirm Reason for exam: hardware placement upright (standing or s/p ACDFShould sitting), confirm this be performed hardware placement s/p at the ACDF Comparison: No bedside?->No priors Discussion: Status post ACDF at C5-C7 with plate and screw device, with placement of interbody spacers at C5-C6 and C6-C7. Vertebral body height is normal. There is mild anterolisthesis at C4-C5 and minimal retrolisthesis at C5-C6. No evidence of hardware fracture, or screw backout. There is prevertebral soft tissue edema, which is likely due to recent surgery. Signed: Juan Carlos Pickering MDReport Verified Date/Time: 02/02/2019 10:03:49 Reading Location: [facility] Radiology Reading Room PHORUS 2019-02-02 06:25:00 Test Item Value Reference Range Interpretation Comme nts PHOSPHORUS (BEAKER) (test code = 604) 2.6 mg/dL 2.3-4.7 [id number] 06:25:00 Test Item Value Reference Range Interpretation Comments MAGNESIUM (BEAKER) (test code = 1.8 mg/dL 1.6-2.6 627) BASIC METABOLIC [id number] 06:25:00 Test Item Value Reference Range Interpretation Comments SODIUM (BEAKER) 139 meq/L 136-145 (test code = 381) POTASSIUM (BEAKER) 4.1 meq/L 3.5-5.1 (test code = 379) CHLORIDE (BEAKER) 110 meq/L 98-107 H (test code = 382) CO2 (BEAKER) (test 22 meq/L 22-29 code = 355) BLOOD UREA NITROGEN 13 mg/dL 7-21 (BEAKER) (test code = 354) CREATININE (BEAKER) 0.82 mg/dL 0.57-1.25 (test code = 358) GLUCOSE RANDOM 83 mg/dL 70-105 (BEAKER) (test code = 652) CALCIUM (BEAKER) 8.7 mg/dL 8.4-10.2 (test code = 697) EGFR (BEAKER) (test 71 mL/min/1.73 ESTIMA LENKA GFR IS code = 1092) sq m NOT ACCURATE CREATININE CLEARANCE IN PREDICTING GLOMERULAR FILTRATION RATE . ESTIMATED GFR I S NOT APPLICABLE FOR DIALYSIS PATIEN TS. CBC W/PLT COUNT & AUTO [id number] 05:52:00 Test Item Value Reference Range Interpretation Comments WHITE BLOOD CELL COUNT (BEAKER) 5.7 K/ L 3.5-10.5 (test code = 775) RED BLOOD CELL COUNT (BEAKER) 4.15 M/ L 3.93-5.22 (test code = 761) HEMOGLOBIN (BEAKER) (test code = 12.6 GM/DL 11.2-15.7 410) HEMATOCRIT (BEAKER) (test code = 39.2 % 34.1-44.9 411) MEAN CORPUSCULAR VOLUME (BEAKER) 94.5 fL 79.4-94.8 (test code = 753) MEAN CORPUSCULAR HEMOGLOBIN 30.4 pg 25.6-32.2 (BEAKER) (test code = 751) MEAN CORPUSCULAR HEMOGLOBIN CONC 32.1 GM/DL 32.2-35.5 L (BEAKER) (test code = 752) RED CELL DISTRIBUTION WIDTH 13.8 % 11.7-14.4 (BEAKER) (test code = 412) PLATELET COUNT (BEAKER) (test 144 K/CU MM 150-450 L code = 756) MEAN PLATELET VOLUME (BEAKER) 12.9 fL 9.4-12.3 H (test code = 754) NUCLEATED RED BLOOD CELLS 0 /100 WBC 0-0 (BEAKER) (test code = 413) NEUTROPHILS RELATIVE PERCENT 63 % (BEAKER) (test code = 429) LYMPHOCYTES RELATIVE PERCENT 24 % (BEAKER) (test code = 430) MONOCYTES RELATIVE PERCENT 13 % (BEAKER) (test code = 431) EOSINOPHILS RELATIVE PERCENT 0 % (BEAKER) (test code = 432) BASOPHILS RELATIVE PERCENT 0 % (BEAKER) (test code = 437) NEUTROPHILS ABSOLUTE COUNT 3.56 K/ L 1.56-6.13 (BEAKER) (test code = 670) LYMPHOCYTES ABSOLUTE COUNT 1.37 K/ L 1.18-3.74 (BEAKER) (test code = 414) MONOCYTES ABSOLUTE COUNT (BEAKER) 0.71 K/ L 0.24-0.36 H (test code = 415) EOSINOPHILS ABSOLUTE COUNT 0.00 K/ L 0.04-0.36 L (BEAKER) (test code = 416) BASOPHILS ABSOLUTE COUNT (BEAKER) 0.02 K/ L 0.01-0.08 (test code = 417) IMMATURE GRANULOCYTES-RELATIVE 0 % 0-1 PERCENT (BEAKER) (test code = 2801) [place], HIRED HAND IN OR/30 MINUTE [id number] 15:45:00Reason for exam:- >ACDF C5-7 ANTERIORFINAL REPORT Intraoperative fluoroscopy. CLINICAL HISTORY: ACDF C5-7 ANTERIOR. FINDINGS: Two fluoroscopically acquired images were acquired by the referring physician. An intraoperative verbal report was not requested. Fluoroscopy was not performed by the undersigned. Fluoroscopy time: 20 seconds. Two images. Signed: Delmar Shaikh MDRepbothwell regional [facility] Verified Date/Time: 02/01/2019 15:45:42 Reading Location: [address] Consult Reading Room [place], HIRED HAND IN OR/30 MINUTE [id number] 12:46:00 Reason for exam:->Cervical radiculopathyFINAL REPORT Cervical spine. CLINICAL HISTORY: Cervical radiculopathy. COMPARISON STUDY: None. FINDINGS: A single, lateral intraoperative fluoroscopically acquired image is submitted for interpretation. A radiopaque marker is seen anteriorly at the C6/C7 level. An intraoperative verbal report was given to Dr. Griffith who is in agreement. Signed: Delmar Shaikh MDReport Verified Date/Time: 02/01/2019 12:46:41 Reading Location: [facility] [id number] Consult Reading Room
--- NOTE | 2023-02-28 11:31 | RAD REPORT ---
EXAM DESCRIPTION: CT - Head Brain Wo Cont - 02/28/2023 11:24 am CLINICAL HISTORY: DIZZINESS COMPARISON: Head Brain Wo Cont dated 02/05/2019; Head Brain Wo Cont dated 02/03/2019 TECHNIQUE: All CT scans are performed using dose optimization technique as appropriate and may inclu de automated exposure control or mA/KV adjustment according to patient size. FINDINGS: No intracranial hemorrhage, hydrocephalus or extra-axial fluid collection.No areas of brai n edema or evidence of midline shift. The paranasal sinuses and mastoids are clear. The calvarium is intact. IMPRESSION: No acute intracranial abnormality.
--- NOTE | 2023-02-28 11:48 | ER ---
Nurse's Notes [facility] Name: Angelica Daily Age: 62 yrs Sex: Female : 1960 Arrival Date: 02/28/2023 Time: 10:57 Bed 8 Private MD: Lambert Brown Diagnosis: Labyrinthitis, right ear Presentation: 02/28 11:15 Chief complaint: Patient states: has been dealing with intermittent vertigo symptoms X iw 2 weeks , secondary to CPAP machine that is causing ear pain, today the vertigo got worse and she started vomiting at 0915. Coronavirus screen: At this time, the client does not indicate any symptoms associated with coronavirus-19. Ebola Screen: Patient negative for fever greater than or equal to 101.5 degrees Fahrenheit, and additional compatible Ebola Virus Disease symptoms Patient denies exposure to infectious person. Patient denies travel to an Ebola-affected area in the 21 days before illness onset. No symptoms or risks identified at this time. Initial Sepsis Screen: Does the patient meet any 2 criteria? No. Patient's initial sepsis screen is negative. Does the patient have a suspected source of infection? No. Patient's initial sepsis screen is negative. Risk Assessment: Do you want to hurt yourself or someone else? Patient reports no desire to harm self or others. Onset of symptoms was February 13, 2023. 11:15 Method Of Arrival: Wheelchair iw 11:15 Acuity: ILIR 3 iw Historical: - Allergies: 11:17 DARRYL INHIBITORS; iw 11:17 Codeine; iw 11:17 Corlanor; iw 11:17 HIgh tolerance to PO Benadryl; iw 11:17 Hydrocodone-Acetaminophen; iw 11:17 Lisinopril; iw 11:17 Metoprolol Tartrate; iw 11:17 Multi foods and inhalants; iw 11:17 Oxycodone; iw 11:17 Percocet; iw 11:17 Phenergan; iw 11:17 Sulfa (Sulfonamide Antibiotics); iw 11:17 Vicodin; iw - Home Meds: 11:21 Accolate 20 mg Oral tab 1 tab 2 times per day [Active]; levothyroxine 100 mcg tab 1 tab iw nightly [Active]; Proventil Inhl 2.5 mg as needed [Active]; Voltaren Oral as needed [Active]; Xopenex 1.25 mg/3 mL Inhl nebu as needed [Active]; leflunomide 20 mg Oral tab 1 tab nightly [Active]; Viibryd 20 mg Oral tab once daily [Active]; dextroamphetamine sulfate 10 mg oral tablet 2 times per day [Active]; dextroamphetamine sulfate 5 mg oral tablet daily [Active]; quetiapine oral 25 mg morning, 100 mg nightly [Active]; Depakote ER 250 mg Oral Tb24 [Active]; divalproex 125 mg oral tablet, delayed release (enteric coated) daily [Active]; diltiazem HCl 120 mg Oral Capsule, ER 24 hr daily [Active]; rosuvastatin 40 mg Oral tab 1 tab nightly [Active]; irbesartan 300 mg Oral tab 1 tab once daily [Active]; - PMHx: 11:17 adhd; ankylosing spondylitis arthritis; Asthma; Crohn's; Depression; Hypertension; iw Hypothyroidism; Migraines; Rheumatoid Arthritis; - PSHx: 11:17 neck; hip; knee; iw - Immunization history:: Adult Immunizations up to date. - Social history:: Smoking status: Patient denies any tobacco usage or history of. Assessment: 12:10 Reassessment: Discharge ordered, awaiting medication from pharmacy at this time. hb Vital Signs: 11:15 BP 134 / 73; Pulse 77; Resp 16; Pulse Ox 98% on R/A; Weight 78.02 kg; Height 5 ft. 3 iw in. ; Pain 0/10; 11:15 Body Mass Index 30.47 (78.02 kg, 160.02 cm) iw 11:15 Pain Scale: Adult iw ED Course: 11:00 Patient arrived in ED. mr 11:01 Lambert Brown MD is Private Physician. mr 11:17 Prateek Hinton, ZAIRA is Primary Nurse. bp 11:17 Amber Anaya FNP-C is PHCP. snw 11:17 Bautista Worthington MD is Attending Physician. snw 11:17 Triage completed. iw 11:19 Arm band placed on. iw 11:25 CT Head Brain wo Cont In Process Unspecified. EDMS 11:30 Patient has correct armband on for positive identification. hb Administered Medications: 12:09 Drug: Decadron - Dexamethasone IVP 10 mg Route: IVP; Site: Other; hb 12:56 Follow up: Response: No adverse reaction hb 12:09 Drug: Ondansetron PO 4 mg Route: PO; hb 12:56 Follow up: Response: No adverse reaction hb 12:55 Drug: Pseudoephedrine PO 120 mg Route: PO; hb 12:55 Follow up: Response: Medication administered at discharge. hb Outcome: 11:48 Discharge ordered by . snoly 12:56 Discharged to home via wheelchair, with family. hb 12:56 Condition: stable 12:56 Discharge instructions given to patient, Instructed on discharge instructions, follow up and referral plans. medication usage, Demonstrated understanding of instructions, follow-up care, medications, Prescriptions given X 4. 12:56 Patient left the ED. hb Signatures: Dispatcher [employer] EDAmber Rocha FNP-C INDUCTION MACHINE SETTER-Javierw Kinga Ball Maura Cole, RN Evita Cabrera RN RN Prateek Henning RN RN bp
--- NOTE | 2023-02-28 11:49 | EDPHYS ---
Physician Documentation [facility] Name: Angelica Daily Age: 62 yrs Sex: Female : 1960 Arrival Date: 02/28/2023 Time: 10:57 Bed 8 Private MD: Lambert Brown ED Physician Bautista Worthington HPI: 02/28 13:31 This 62 yrs old Female presents to ER via Wheelchair with complaints of Dizziness, snw Nausea/Vomiting. 13:31 The patient presents with feeling off balance, sense of spinning, vertigo. Onset: The snw symptoms/episode began/occurred intermittently x 2 weeks, worse today. Context: occurred at work, occurred while the patient was walking. Associated signs and symptoms: Pertinent positives: nausea, vomiting. Severity of symptoms: At their worst the symptoms were moderate severe. Patient's baseline: Neuro: alert and fully oriented, Motor: no deficits, The patient has a previous history of new C-pap use. as noted. Historical: - Allergies: 11:17 DARRYL INHIBITORS; iw 11:17 Codeine; iw 11:17 Corlanor; iw 11:17 HIgh tolerance to PO Benadryl; iw 11:17 Hydrocodone-Acetaminophen; iw 11:17 Lisinopril; iw 11:17 Metoprolol Tartrate; iw 11:17 Multi foods and inhalants; iw 11:17 Oxycodone; iw 11:17 Percocet; iw 11:17 Phenergan; iw 11:17 Sulfa (Sulfonamide Antibiotics); iw 11:17 Vicodin; iw - Home Meds: 11:21 Accolate 20 mg Oral tab 1 tab 2 times per day [Active]; levothyroxine 100 mcg tab 1 tab iw nightly [Active]; Proventil Inhl 2.5 mg as needed [Active]; Voltaren Oral as needed [Active]; Xopenex 1.25 mg/3 mL Inhl nebu as needed [Active]; leflunomide 20 mg Oral tab 1 tab nightly [Active]; Viibryd 20 mg Oral tab once daily [Active]; dextroamphetamine sulfate 10 mg oral tablet 2 times per day [Active]; dextroamphetamine sulfate 5 mg oral tablet daily [Active]; quetiapine oral 25 mg morning, 100 mg nightly [Active]; Depakote ER 250 mg Oral Tb24 [Active]; divalproex 125 mg oral tablet, delayed release (enteric coated) daily [Active]; diltiazem HCl 120 mg Oral Capsule, ER 24 hr daily [Active]; rosuvastatin 40 mg Oral tab 1 tab nightly [Active]; irbesartan 300 mg Oral tab 1 tab once daily [Active]; - PMHx: 11:17 adhd; ankylosing spondylitis arthritis; Asthma; Crohn's; Depression; Hypertension; iw Hypothyroidism; Migraines; Rheumatoid Arthritis; - PSHx: 11:17 neck; hip; knee; iw - Immunization history:: Adult Immunizations up to date. - Social history:: Smoking status: Patient denies any tobacco usage or history of. ROS: 13:30 Constitutional: Negative for fever, chills, and weight loss, Eyes: Negative for injury, snw pain, redness, and discharge, Neck: Negative for injury, pain, and swelling, Cardiovascular: Negative for chest pain, palpitations, and edema, Respiratory: Negative for shortness of breath, cough, wheezing, and pleuritic chest pain, Back: Negative for injury and pain, : Negative for injury, bleeding, discharge, and swelling, MS/Extremity: Negative for injury and deformity, Skin: Negative for injury, rash, and discoloration. 13:30 ENT: Positive for ear pain, hearing loss, tinnitus, right ear. 13:30 Abdomen/GI: Positive for nausea and vomiting. 13:30 Neuro: Positive for dizziness, hearing loss. Exam: 13:23 Constitutional: This is a well developed, well nourished patient who is awake, alert, snw and in no acute distress. Head/Face: Normocephalic, atraumatic. Eyes: Pupils equal round and reactive to light, extra-ocular motions intact. Lids and lashes normal. Conjunctiva and sclera are non-icteric and not injected. Cornea within normal limits. Periorbital areas with no swelling, redness, or edema. ENT: Nares patent. No nasal discharge, no septal abnormalities noted. Tympanic membranes are normal and external auditory canals are clear. Oropharynx with no redness, swelling, or masses, exudates, or evidence of obstruction, uvula midline. Mucous membranes moist. Neck: Trachea midline, no thyromegaly or masses palpated, and no cervical lymphadenopathy. Supple, full range of motion without nuchal rigidity, or vertebral point tenderness. No Meningismus. Chest/axilla: Normal chest wall appearance and motion. Nontender with no deformity. No lesions are appreciated. Cardiovascular: Regular rate and rhythm with a normal S1 and S2. No gallops, murmurs, or rubs. Normal PMI, no JVD. No pulse deficits. Respiratory: Lungs have equal breath sounds bilaterally, clear to auscultation and percussion. No rales, rhonchi or wheezes noted. No increased work of breathing, no retractions or nasal flaring. Abdomen/GI: Soft, non-tender, with normal bowel sounds. No distension or tympany. No guarding or rebound. No evidence of tenderness throughout. Back: No spinal tenderness. No costovertebral tenderness. Full range of motion. Skin: Warm, dry with normal turgor. Normal color with no rashes, no lesions, and no evidence of cellulitis. MS/ Extremity: Pulses equal, no cyanosis. Neurovascular intact. Full, normal range of motion. Psych: Awake, alert, with orientation to person, place and time. Behavior, mood, and affect are within normal limits. 13:23 Neuro: Orientation: is normal, Mentation: is normal, Memory: is normal, Cerebellar function: is grossly normal, Motor: is normal, Sensation: is normal. Vital Signs: 11:15 BP 134 / 73; Pulse 77; Resp 16; Pulse Ox 98% on R/A; Weight 78.02 kg; Height 5 ft. 3 iw in. ; Pain 0/10; 11:15 Body Mass Index 30.47 (78.02 kg, 160.02 cm) iw 11:15 Pain Scale: Adult iw MDM: 11:18 Patient medically screened. snw 11:50 Differential diagnosis: TIA, vertigo, inner ear, BPPV, labyrinthitis. Data reviewed: snw vital signs, nurses notes. I considered the following discharge prescriptions or medication management in the emergency department Medications were administered in the Emergency Department. See MAR. Counseling: I had a detailed discussion with the patient and/or guardian regarding: the historical points, exam findings, and any diagnostic results supporting the discharge/admit diagnosis, radiology results, the need for outpatient follow up, to return to the emergency department if symptoms worsen or persist or if there are any questions or concerns that arise at home. Special discussion: Based on the history and exam findings, there is no indication for further emergent testing or inpatient evaluation. I discussed with the patient/guardian the need to see the ENT specialist for further evaluation of the symptoms. I discussed with the patient/guardian the need to see the primary care provider for further evaluation of the symptoms. 13:22 Management of patient was discussed with the following: Dr. Vigil, po decongestant, snw systemic and nasal steroid, anti-emetic. F/U this week.. 13:30 Response to treatment: the patient's symptoms have mildly improved after treatment. snw 02/28 11:15 Order name: CT Head Brain wo Cont; Complete Time: 11:33 snw Administered Medications: 12:09 Drug: Decadron - Dexamethasone IVP 10 mg Route: IVP; Site: Other; hb 12:56 Follow up: Response: No adverse reaction hb 12:09 Drug: Ondansetron PO 4 mg Route: PO; hb 12:56 Follow up: Response: No adverse reaction hb 12:55 Drug: Pseudoephedrine PO 120 mg Route: PO; hb 12:55 Follow up: Response: Medication administered at discharge. hb Disposition: 15:39 I reviewed the patient's care provided by the Advanced Practice Provider and agree with jrTrisha the diagnosis and treatment plan. Disposition Summary: 02/28/23 11:48 Discharge Ordered Location: Home snw Condition: Stable snw Diagnosis - Labyrinthitis, right ear snw Discharge Instructions: - Discharge Summary Sheet snw - Labyrinthitis snw Forms: - Medication Reconciliation Form snw - Thank You Letter snw - Antibiotic Education snw - Prescription Opioid Use snw - Work release form eb Prescriptions: - Flonase Sensimist 27.5 mcg/actuation Nasal spray, suspension - spray 2 spray by INTRANASAL route daily as needed for nasal congestion; into snw each nostril; 1 unit; Refills: 0, Product Selection Permitted - Sudafed 24 Hour 240 mg Oral Tablet, Extended Release 24 hr - take 1 tablet by ORAL route daily; 30 tablet; Refills: 0, Product Selection snw Permitted - Zofran 4 mg Oral Tablet - take 1 tablet by ORAL route every 12 hours As needed; 20 tablet; Refills: 0, snw Product Selection Permitted - Prednisone 20 mg Oral Tablet - take 2 tablets by ORAL route once daily for 5 days; 10 tablet; Refills: 0, snw Product Selection Permitted Signatures: Dispatcher [employer] Amber Monsivais, CAROLINE LANDRY-Javierw Maura Cole, RN RN Evita Enamorado RN RN Bautista Montez MD MD [email or web address]
[2023-02-28] MEDS ORDERED: dexAMETHasone 10 MG/ML VIAL ONE (12:08)
[2023-02-28] MEDS ORDERED: ONDANSETRON 4 MG (ODT) TAB ONE (12:08)
[2023-02-28] MEDS ORDERED: PSEUDOEPHEDRINE 30 MG TAB PO ONE (13:00)
[2023-02-28 13:22] VITALS: BP 134/73; O2SAT 98
== END 2023-02-28 12:56 | disposition home or self-care (01) ==
LOC: ER 10:57
DX: H83.01 Labyrinthitis, right ear (principal); R42 Dizziness and giddiness; I10 Essential (primary) hypertension; Z88.1 Allergy status to other antibiotic agents; Z88.2 Allergy status to sulfonamides; Z88.5 Allergy status to narcotic agent; Z88.8 Allergy status to other drugs, medicaments and biological substances
CPT/HCPCS: 70450; Q0162; J1100; 96374; 99284

== ENCOUNTER 2023-09-17 01:35 | Observation (INO) | payer BC ==
--- OUTSIDE RECORDS SUMMARY | 2023-09-17 01:39 | XMS REPORT | Continuity of Care Document ---
:1960 Author Organization [facility] t Address [address] [place] [address] Care Team Providers Name Role Phone Lambert Brown MD Primary Care Physician [email or web address]_S Attending Clinician Unavailable Daniel Duarte MD Attending Clinician Cesia Meléndez Attending Clinician CESIA ROUSSEAU Attending Clinician Unavailable Doctor Unassigned, [place] Attending Clinician Unavailable LISE GRIFFITH Attending Clinician Unavailable [email or web address]_S Admitting Clinician Unavailable LISE GRIFFITH Admitting Clinician Unavailable [...] rs active active ity of problems problems [facility] Allergies, Adverse Reactions, Alerts Allergy Allergy Status Severity Reaction(s) Onset Inactive Treating Comm ents Source Name Type Date Date Clinician Johnnie Drug Active Other (See Cognitive [facility] Inhibito Intolera Comments) 3-21 stupor Renu es rs nce 00:00: Medical 00 Center Codeine Propensi Active Rash 2019-[address] [facility] [address] ty to 3-21 [facility] adverse 00:00: Medical reaction 00 Center s Hydrocod Propensi Active Rash 2018-[address] [facility] one-Acet ty to 3-21 [facility] aminophe adverse 00:00: Medical n reaction 00 Center s Metoprol Drug Active Other (See 2019-[address] ol Intolera Comments) 3 stupor [facility] nce 00:00: Medical 00 Center Oxycodon Propensi Active Rash 2018- [facility] e ty to 3-21 [facility] adverse 00:00: Medical reaction 00 Center s Prometha Drug Active Other (See 2019-[address] [address] zine Intolera Comments) 01-19 hallucina Jessica kes nce 00:00: tion Medical [place] Sulfa Propensi Active Hives, 2018-[address] [facility] (Sulfona ty to Shortness Of 21 Jessica kes mide adverse Breath 00:00: Medical Antibiot reaction 00 [place] ics) s Johnnie Drug Active Other - See Cognitive Un sarai Inhibito Intolera comments 3-21 stupor ity of rs nce 00:00: [place] 00 Medical Branch JOHNNIE Drug Active High Other-Cmnt 2018-0 Univer s INHIBITO Class 3-21 ity of RS 00:00: [place] 00 Medical Branch SULFA Drug Active High SOB 2018-0 Univers (SULFONA Class 3-21 ity of MIDE 00:00: [place] ANTIBIOT 00 Medical ICS) Branch Sulfa Drug Active Nausea 2018-0 Univers (Sulfona Allergy and/or 3-21 ity of mide Vomiting 00:00: [place] Antibiot 00 Medical ics) Branch METOPROL DRUG Active High NAUSEA ONLY 2018- Uni vers OL INGREDI 2-12 ity of 00:00: [place] 00 Medical Branch CODEINE DRUG Active Low Rash 2019-0 Univers INGREDI 2-12 ity of 00:00: [place] 00 Medical Branch OXYCODON DRUG Active Low Hives 2019-0 Univers E INGREDI 2-12 ity of 00:00: [place] 00 Medical Branch Codeine Propensi Active Rash 2018-0 Univers ty to 2-12 ity of adverse 00:00: [place] reaction 00 Medical s Branch Metoprol Drug Active Other - See 2018- Cognitive Univers ol Intolera comments 2-12 stupor ity of nce 00:00: [place] 00 Medical Branch Oxycodon Propensi Active Rash Univer s e ty to 2-12 ity of adverse 00:00: [place] reaction 00 Medical s Branch BENZOCAI DRUG Active High Hallucinates 2009-11 Un sarai NE-BENZY 2-09 ity of L 00:00: [place] BENZOATE 00 Medical Branch HYDROCOD DRUG Active High Hives 2009-11 Univers ONE-ACET 2-09 ity of AMINOPHE 00:00: [place] N 00 Medical Branch PROMETHA DRUG Active High Hallucinates 2009-11 Un sarai ZINE INGREDI 2-09 ity of 00:00: [place] 00 Medical Branch Benzocai Propensi Active Hallucinatio 2009-11 Univers ne-Benzy ty to ns 12-10 ity of l adverse 00:00: [place] Benzoate reaction 00 Medica l s Branch Hydrocod Propensi Active Rash 2009-11 Univer s one-Acet ty to 2 ity of aminophe adverse 00:00: [place] n reaction 00 Medical s Branch Prometha Drug Active Other - See 2009-11 Hallucina Univers zine Intolera comments 12-10 tionsVisu ity of nce 00:00: al [place] 00 hallucina Medical tion Branch NO KNOWN Drug Active Univers ALLERGIE Class ity of [facility] Social History Social Habit Start Date Stop Date Quantity Comments Source Sexual orientation [facility] History SDOH [facility] Alcohol Std Drinks Medica [facility] History SDOH [facility] Alcohol Binge Medical [address] Tobacco use and 2021-05-16 2021-05-16 Never used Universit y of exposure 00:00:00 00:00:00 [facility] Alcohol intake 2019-02-14 2019-02-[address] Renu es 00:00:00 00:00:00 non-drinker of Medical Ce nter alcohol (finding) History SDOH 2019-01-19 2019-01-[address] [facility] Alcohol Frequency 00:00:00 00:00:00 [facility] Sex Assigned At [address] Jessica kes 00:00:00 00:00:00 Medical Center Smoking Status Start Date Stop Date Source Unknown [facility] Never smoker [facility] Medications Ordered Filled Start Stop Current Ordering Indication Dosage Frequency Signature Comments Components Source Medication Medication Date Date Medication? Clinician (SIG) Name Name QUEtiapine Yes 100mg Take 100 Un sarai 100 mg 7-16 mg by ity of tablet 13:36: mouth. [address] QUEtiapine Yes 100mg Take 100 Un sarai 100 mg 7-16 mg by ity of tablet 13:36: mouth. [address] QUEtiapine Yes 100mg Take 100 Un sarai 100 mg 7-16 mg by ity of tablet 13:36: mouth. [address] QUEtiapine Yes 100mg Take 100 Un sarai 100 mg 7-16 mg by ity of tablet 13:36: mouth. [address] QUEtiapine Yes 100mg Take 100 Un sarai 100 mg 7-16 mg by ity of tablet 13:36: mouth. [address] levalbutero Yes Inhale. Uni vers l (XOPENEX 7-16 ity of HFA) 45 13:34: [place] mcg/actuati Medical on inhaler Branch irbesartan Yes 300mg Take 300 Un sarai 300 mg 7-16 mg by ity of tablet 13:34: mouth. [address] levalbutero Yes Inhale. Uni vers l (XOPENEX 7-16 ity of HFA) 45 13:34: [place] mcg/actuati 25 Medical on inhaler Branch irbesartan Yes 300mg Take 300 Un sarai 300 mg 7-16 mg by ity of tablet 13:34: mouth. [address] levalbutero Yes Inhale. Uni vers l (XOPENEX 7-16 ity of HFA) 45 13:34: [place] mcg/actuati 25 Medical on inhaler Branch irbesartan 0 Yes 300mg Take 300 Un sarai 300 mg 7-16 mg by ity of tablet 13:34: mouth. [address] levalbutero Yes Inhale. Uni vers l (XOPENEX 7-16 ity of HFA) 45 13:34: [place] mcg/actuati 25 Medical on inhaler Branch irbesartan 0 Yes 300mg Take 300 Un sarai 300 mg 7-16 mg by ity of tablet 13:34: mouth. [address] levalbutero 0 Yes Inhale. Uni vers l (XOPENEX 7-16 ity of HFA) 45 13:34: [facility] [address] Medical on inhaler Branch irbesartan 2020-0 Yes 300mg Take 300 Un sarai 300 mg 7-16 mg by ity of tablet 13:34: mouth. [address] acetaminoph 2020-0 Yes 1500mg Take 1,500 Univers en 500 mg 7-16 mg by ity of tablet 13:34: mouth. [address] adalimumab 2020-0 Yes 40mg inject 40 Un sarai 40 mg/0.4 7-16 mg under ity of mL SyKt 13:34: the skin. [address] dextroamphe 2020-0 Yes 10mg Take 10 mg Univers tamine 10 7-16 by mouth. ity o f mg tablet 13:34: [address] divalproex 2020-0 Yes 250mg 250 mg. Uni vers 250 mg EC 7-16 ity of tablet 13:34: [address] acetaminoph 2020-0 Yes 1500mg Take 1,500 Univers en 500 mg 7-16 mg by ity of tablet 13:34: mouth. [address] adalimumab 2020-0 Yes 40mg inject 40 Un sarai 40 mg/0.4 7-16 mg under ity of mL SyKt 13:34: the skin. [address] dextroamphe 2020-0 Yes 10mg Take 10 mg Univers tamine 10 7-16 by mouth. ity o f mg tablet 13:34: [address] divalproex 2020-0 Yes 250mg 250 mg. Uni vers 250 mg EC 7-16 ity of tablet 13:34: [address] acetaminoph 2020-0 Yes 1500mg Take 1,500 Univers en 500 mg 7-16 mg by ity of tablet 13:34: mouth. [address] adalimumab 2020-0 Yes 40mg inject 40 Un sarai 40 mg/0.4 7-16 mg under ity of mL SyKt 13:34: the skin. [address] dextroamphe 2020-0 Yes 10mg Take 10 mg Univers tamine 10 7-16 by mouth. ity o f mg tablet 13:34: [address] divalproex 0 Yes 250mg 250 mg. Uni vers 250 mg EC 7-16 ity of tablet 13:34: [address] acetaminoph 0 Yes 1500mg Take 1,500 Univers en 500 mg 7-16 mg by ity of tablet 13:34: mouth. [address] adalimumab 2020-0 Yes 40mg inject 40 Un sarai 40 mg/0.4 7-16 mg under ity of mL SyKt 13:34: the skin. [address] dextroamphe 0 Yes 10mg Take 10 mg Univers tamine 10 7-16 by mouth. ity o f mg tablet 13:34: [address] divalproex Yes 250mg 250 mg. Uni vers 250 mg EC 7-16 ity of tablet 13:34: [address] acetaminoph Yes 1500mg Take 1,500 Univers en 500 mg 7-16 mg by ity of tablet 13:34: mouth. [address] adalimumab 2020-0 Yes 40mg inject 40 Un sraai 40 mg/0.4 7-16 mg under ity of mL SyKt 13:34: the skin. [address] dextroamphe 0 Yes 10mg Take 10 mg Univers tamine 10 7-16 by mouth. ity o f mg tablet 13:34: [address] divalproex Yes 250mg 250 mg. Uni vers 250 mg EC 7-16 ity of tablet 13:34: [address] rosuvastati 0 Yes Univer s n 40 mg 7-15 ity of tablet 00:00: [address] rosuvastati 0 Yes Univer s n 40 mg 7-15 ity of tablet 00:00: [place] [facility] rosuvastati 0 Yes Univer s n 40 mg 7-15 ity of tablet 00:00: [address] rosuvastati 0 Yes Univer s n 40 mg 7-15 ity of tablet 00:00: [place] [facility] rosuvastati 0 Yes Univer s n 40 mg 7-15 ity of tablet 00:00: [place] 00 Medical Branch ibuprofen 0 Yes 800mg Take 800 Uni vers 800 mg 7-11 mg by ity of tablet 00:00: mouth 3 (three) Medical times Branch daily with meals. ondansetron 0 Yes DISSOLVE 1 Univers 4 mg 7-11 TABLET ON ity of disintegrat 00:00: THE TONGUE [place] ing tablet 00 EVERY 8 Medica l HOURS Branch traMADoL 50 0 Yes 50mg Take 50 mg Univers mg tablet 7-11 by mouth ity of 00:00: every 6 (six) Medical hours as Branch needed. ibuprofen Yes 800mg Take 800 Uni vers 800 mg 7-11 mg by ity of tablet 00:00: mouth 3 (three) Medical times Branch daily with meals. ondansetron 0 Yes DISSOLVE 1 Univers 4 mg 7-11 TABLET ON ity of disintegrat 00:00: THE TONGUE [place] ing tablet 00 EVERY 8 Medica l HOURS Branch traMADoL 50 0 Yes 50mg Take 50 mg Univers mg tablet 7-11 by mouth ity of 00:00: every 6 (six) Medical hours as Branch needed. ibuprofen Yes 800mg Take 800 Uni vers 800 [...] 8 Medica l HOURS Branch traMADoL 50 Yes 50mg Take 50 mg Univers mg tablet 7-11 by mouth ity of 00:00: every 6 [place] 00 (six) Medical hours as Branch needed. levothyroxi Yes Univer s ne 100 mcg 7-01 ity of tablet 00:00: [place] 00 Medical Branch levothyroxi Yes Univer s ne 100 mcg 7-01 ity of tablet 00:00: [place] 00 Medical Branch levothyroxi Yes Univer s ne 100 mcg 7-01 ity of tablet 00:00: [place] 00 Medical Branch levothyroxi 0 Yes Univer s ne 100 mcg 7-01 ity of tablet 00:00: [place] 00 Medical Branch levothyroxi 0 Yes Univer s ne 100 mcg 7-01 ity of tablet 00:00: [place] 00 Medical Branch VIIBRYD 40 2020- No 40mg Take 40 mg Univers mg tablet 04-29 by mouth ity o f 00:00: 00:00 at [place] 00 :00 bedtime. Medical Branch VIIBRYD 40 2020- No 40mg Take 40 mg Univers mg tablet 04-29 by mouth ity o f 00:00: 00:00 at [place] 00 :00 bedtime. Medical Branch VIIBRYD 40 2020- No 40mg Take 40 mg Univers mg tablet 04-29 by mouth ity o f 00:00: 00:00 at [place] 00 :00 bedtime. Medical Branch diltiazem Yes 120mg Take 120 Uni vers 120 mg 24 6-28 mg by ity of hr capsule 00:00: mouth [place] daily. Medical Branch diltiazem Yes 120mg Take 120 Uni vers 120 mg 24 6-28 mg by ity of hr capsule 00:00: mouth [place] daily. Medical Branch diltiazem 2021-0 Yes 120mg Take 120 Uni vers 120 mg 24 6-28 mg by ity of hr capsule 00:00: mouth [place] daily. Medical Branch diltiazem 2020-0 Yes 120mg Take 120 Uni vers 120 mg 24 6-28 mg by ity of hr capsule 00:00: mouth daily. Medical Branch diltiazem 0 Yes 120mg Take 120 Uni vers 120 mg 24 6-28 mg by ity of hr capsule 00:00: mouth daily. Medical Branch DULoxetine Yes TAKE 1 Unive rs 30 mg 6-22 CAPSULE BY ity of capsule 00:00: MOUTH IN [place] 00 THE Medical MORNING Branch DULoxetine Yes TAKE 1 Unive rs 30 mg 6-22 CAPSULE BY ity of capsule 00:00: MOUTH IN [place] 00 THE Medical MORNING Branch DULoxetine Yes TAKE 1 Unive rs 30 mg 6-22 CAPSULE BY ity of capsule 00:00: MOUTH IN [place] 00 THE Medical MORNING Branch DULoxetine 2020- Yes TAKE 1 Unive rs 30 mg 6-22 CAPSULE BY ity of capsule 00:00: MOUTH IN [place] 00 THE Medical MORNING Branch DULoxetine 0 Yes TAKE 1 Unive rs 30 mg 6-22 CAPSULE BY ity of capsule 00:00: MOUTH IN [place] 00 THE Medical MORNING Branch scopolamine Yes APPLY 1 Uni vers transdermal 6-21 PATCH ity of 1 mg over 3 00:00: TOPICALLY [place] days patch 00 TO THE Medical SKIN EVERY Branch 3 DAYS zafirlukast Yes Univer s 20 mg 6-21 ity of tablet 00:00: [place] 00 Medical Branch scopolamine 2020-0 Yes APPLY 1 Uni vers transdermal 6-21 PATCH ity of 1 mg over 3 00:00: TOPICALLY [place] days patch 00 TO THE Medical SKIN EVERY Branch 3 DAYS zafirlukast Yes Univer s 20 mg 6-21 ity of tablet 00:00: [place] 00 Medical Branch scopolamine 2020-0 Yes APPLY 1 Uni vers transdermal 6-21 PATCH ity of 1 mg over 3 00:00: TOPICALLY [place] days patch 00 TO THE Medical SKIN EVERY Branch 3 DAYS zafirlukast Yes Univer s 20 mg 6-21 ity of tablet 00:00: [address] Branch scopolamine 2020-0 Yes APPLY 1 Uni vers transdermal 6-21 PATCH ity of 1 mg over 3 00:00: TOPICALLY [place] days patch 00 TO THE Medical SKIN EVERY Branch 3 DAYS zafirlukast 2020-0 Yes Univer s 20 mg 6-21 ity of tablet 00:00: [address] Branch scopolamine 2020-0 Yes APPLY 1 Uni vers transdermal 6-21 PATCH ity of 1 mg over 3 00:00: TOPICALLY [place] days patch 00 TO THE Medical SKIN EVERY Branch 3 DAYS zafirlukast 2020-0 Yes Univer s 20 mg 6-21 ity of tablet 00:00: [address] doxycycline 2020-0 Yes 100mg Take 100 U nivers hyclate 100 6-07 mg by ity of mg capsule 00:00: mouth 2 [place] (two) Medical times Branch daily. leflunomide 2020-0 Yes Univer s 20 mg 6-07 ity of tablet 00:00: [address] predniSONE 1-0 Yes 10mg Take 10 mg U nivers 10 mg 6-07 by mouth ity of tablet 00:00: daily. [address] doxycycline 1-0 Yes 100mg Take 100 U nivers hyclate 100 6-07 mg by ity of mg capsule 00:00: mouth 2 [place] 00 (two) Medical times Branch daily. leflunomide 1-0 Yes Univer s 20 mg 6-07 ity of tablet 00:00: [address] predniSONE 2021-0 Yes 10mg Take 10 mg U nivers 10 mg 6-07 by mouth ity of tablet 00:00: daily. [address] doxycycline 1-0 Yes 100mg Take 100 U nivers hyclate 100 6-07 mg by ity of mg capsule 00:00: mouth 2 [place] 00 (two) Medical times Branch daily. leflunomide 1-0 Yes Univer s 20 mg 6-07 ity of tablet 00:00: [address] predniSONE 2021-0 Yes 10mg Take 10 mg U nivers 10 mg 6-07 by mouth ity of tablet 00:00: daily. [address] doxycycline 2021-0 Yes 100mg Take 100 U nivers hyclate 100 6-07 mg by ity of mg capsule 00:00: mouth 2 [place] 00 (two) Medical times Branch daily. leflunomide 2020-0 Yes Univer s 20 mg 6-07 ity of tablet 00:00: [place] [address] Medical Branch predniSONE 2020-0 Yes 10mg Take 10 mg U nivers 10 mg 6-07 by mouth ity of tablet 00:00: daily. [place] [address] Medical Branch doxycycline 2020-0 Yes 100mg Take 100 U nivers hyclate 100 6-07 mg by ity of mg capsule 00:00: mouth 2 [place] 00 (two) Medical times Branch daily. leflunomide Yes Univer s 20 mg 6-07 ity of tablet 00:00: [place] [address] Medical Branch predniSONE 2020-0 Yes 10mg Take 10 mg U nivers 10 mg 6-07 by mouth ity of tablet 00:00: daily. [address] ondansetron 2020- No TAKE 1 Uni vers 4 mg tablet 04-07-16 TABLET BY it y of 00:00: 00:00 MOUTH [place] 00 :00 EVERY 6 Medical HOURS Branch NEEDED FOR NAUSEA ondansetron 2020- No TAKE 1 Uni vers 4 mg tablet 04-07-16 TABLET BY it y of 00:00: 00:00 MOUTH [place] 00 :00 EVERY 6 Medical HOURS Branch NEEDED FOR NAUSEA ondansetron 2020- No TAKE 1 Uni vers 4 mg tablet 04-07-16 TABLET BY it y of 00:00: 00:00 MOUTH [place] 00 :00 EVERY 6 Medical HOURS Branch [...] nightly. Cent er 100 MCG tablet albuterol 2018- Yes 2{puff} Inhale [address] HFA 4-04 puffs by [facility] (VENTOLIN 15:38: mouth via Med ical HFA) 90 29 inhaler Center mcg/actuati every 6 on inhaler (six) hours as needed for Wheezing. diclofenac Yes 2g Apply [address] (VOLTAREN) 4-04 topically Luke s 1 % Gel 15:38: daily as Medica l 29 needed. [place] levalbutero Yes 1{puff} Inhale [address] l (XOPENEX 4-04 puff by [facility] HFA) 45 15:38: mouth via Medic al mcg/actuati 29 inhaler Cente r on inhaler every 6 (six) hours as needed for Wheezing. 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 Medi mary 29 [place] adalimumab Yes 40mg Q14D Inject 40 CH [...] 15:38: disorder daily. Medica l tablet 29 [place] dextroamphe Yes attention-d 10mg Q.5D Take [address] tamine 4-04 eficit by mouth 2 [facility] (DEXTROSTAT 15:38: hyperactivi (two) Medical ) 10 MG 29 ty disorder times Cent er tablet daily Am and noon . dextroamphe Yes 5mg QD Take [address] tamine 4-04 by mouth [facility] (DEXTROSTAT 15:38: daily At [place] dical ) 5 MG 29 1600 . [place] tablet QUEtiapine Yes 100mg QD Take [address] (SEROQUEL) 4-04 mg by [facility] 100 MG 15:38: mouth Medical tablet 29 nightly. [place] QUEtiapine Yes 25mg QD Take [address] (SEROQUEL) 4-04 by mouth [facility] 25 MG 15:38: every Medical tablet 29 morning. [place] divalproex Yes 250mg QD Take [address] (DEPAKOTE) 4-04 mg by [facility] 250 MG 24 15:38: mouth Medical hr tablet 29 daily. [place] divalproex Yes 125mg Take [address] (DEPAKOTE) 4-04 mg by [facility]ukes 125 MG EC 15:38: mouth At Medi mary tablet 29 noon . [place] irbesartan Yes 300mg QD Take [address] (AVAPRO) 4-04 mg by [facility] 300 MG 15:38: mouth Medical tablet 29 daily. [place] rosuvastati Yes 40mg QD Take [address] n (CRESTOR) 4-04 by mouth Luke s 40 MG 15:38: nightly. Medical tablet 29 Center nitroglycer Yes .4mg Place 0.4 C HI [...] Center tablet night as needed for Pain. zafirlukast Yes maintenance 20mg Q.5D Take 20 [...] 15:38: daily as Medica l 29 needed. [place] levalbutero Yes 1{puff} Inhale [address] l (XOPENEX 4-04 puff by [facility]ukes HFA) 45 15:38: mouth via Medic al mcg/actuati 29 inhaler Cente r on inhaler every 6 (six) hours as needed for Wheezing. 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 Medi mary 29 [place] adalimumab Yes 40mg Q14D Inject 40 CH [...] 15:38: disorder daily. Medica l tablet 29 [place] dextroamphe Yes attention-d 10mg Q.5D Take [address] tamine 4-04 eficit by mouth 2 [facility] (DEXTROSTAT 15:38: hyperactivi (two) Medical ) 10 MG 29 ty disorder times Cent er tablet daily Am and noon . dextroamphe Yes 5mg QD Take [address] tamine 4-04 by mouth [facility] (DEXTROSTAT 15:38: daily At [place] dical ) 5 MG 29 1600 . [place] tablet QUEtiapine Yes 100mg QD Take [address] (SEROQUEL) 4-04 mg by [facility]ukes 100 MG 15:38: mouth Medical tablet 29 nightly. [place] QUEtiapine Yes 25mg QD Take [address] (SEROQUEL) 4-04 by mouth [facility]ukes 25 MG 15:38: every Medical tablet 29 morning. [place] divalproex Yes 250mg QD Take [address] (DEPAKOTE) 4-04 mg by [facility]ukes 250 MG 24 15:38: mouth Medical hr tablet 29 daily. [place] divalproex Yes 125mg Take [address] (DEPAKOTE) 4-04 mg by [facility]ukes 125 MG EC 15:38: mouth At Medi mary tablet 29 noon . [place] irbesartan Yes 300mg QD Take [address] (AVAPRO) 4-04 mg by [facility] 300 MG 15:38: mouth Medical tablet 29 daily. [place] rosuvastati Yes 40mg QD Take [address] n (CRESTOR) 4-04 by mouth Luke s 40 MG 15:38: nightly. Medical tablet 29 [place] nitroglycer Yes .4mg Place 0.4 C HI [...] as needed for Pain. No known No Univers medications [facility] Vital Signs Vital Name Observation Time Observation Value Comments Source Systolic blood 2021-05-16 13:25:00 123 mm[Hg] [facility] Diastolic blood 2021-05-16 13:25:00 71 mm[Hg] [facility] Heart rate 2021-05-16 13:25:00 117 /min General acute hospital Body height 2021-05-16 13:25:00 160 cm General acute hospital Body weight 2021-05-16 13:25:00 79.379 kg General acute hospital BMI 2021-05-16 13:25:00 31.00 kg/m2 General acute hospital Procedures Procedure Date / Time Performed Performing Clinician [facility] e REFERRAL- 2021-05-09 05:01:00 Doctor Unassigned, No [facility] REQUEST/RESPONSE Name Medical Branch Encounters Start End Encounter Admission Attending Care Care Encounter Source Date/Time Date/Time Type Type Clinicians Facility Department ID 2023-09-01 2023-09-01 Outpatient [id number] PRIV PRIV [id number] [facility] 00:00:00 00:00:00 jakob_Jessica [id number] Medic al 2021-05-26 2021-05-26 Telephone [facility] [id number] Univers 00:00:00 00:00:00 Daniel Gillette [id number] it y of Surgical [id number] [place] as Specialti [id number] [place] dical es 198 [facility] 2021-05-16 2021-05-16 Hospital [facility] [id number] Univers 08:38:50 23:59:00 Encounter Daniel Gillette [id number] ity of Surgical [id number] [place] as Specialti [phone] N[place] dical es 809 [facility] 2021-05-16 2021-05-16 [facility] [id number] Univers 08:13:50 08:28:50 Visit Cesia Gillette [id number] it y of Surgical [id number] [place] as Specialti [id number] [place] dical es 198 [facility] 2021-05-16 2021-05-16 [facility] [id number] Univers 08:00:00 08:00:00 CESIA ity of [facility] 2021-05-09 2021-05-09 Orders Doctor YOHANA [id number] Univers 00:00:00 00:00:00 Only Unassigned, [facility] [id number] ity of [facility] [id number] [place] as [id number] [address] Results Test Description Test Time Test Comments Results Result Sour e Comments RAD, SPINE, 2019-04-01 S/p C5-7 FINAL REPORT PATIENT CERVICAL, 2 OR 3 2 acdfReason for ID: [id number] Exam: VIEWS 07:18:00 Exam:->s/p Cervical spine AP [...] Scales MDReport Verified Date/Time: 04/12/2019 07:18:52 T-LATENCY 2019-01-2 IOM INTRAOPERATIVE SEP, UPPER LIMBS 2 MONITORING REPORT - SURGERY 08:32:00 Patient Name: Asif Morrow [facility] Surgery Date: 02/01/2019 [place] Pro: [id number] Monitoring began at 1116 and finished at [...] Erazo M.D., FACNS, FAAN, FAESProfessor of Neurology, [facility] Regional Medical CenterDirector, [facility] Epilepsy [facility], [facility] Neurophysiology LabM54.12, M50.30 , SPINE, 0 Reason for FINAL REPORT PATIENT CERVICAL, 2 OR 3 4 exam:->upright ID: [id number] Radiograph VIEWS 10:03:00 (standing or of the [...] MDReport Verified Date/Time: 02/02/2019 10:03:49 Reading Location: [facility] Radiology Reading Room PHORUS 2019-02-02 06:25:00 Test Item Value Reference Range Interpretation Comme nts PHOSPHORUS (BEAKER) (test code = 604) 2.6 mg/dL 2.3-4.7 [id number] 06:25:00 Test Item Value Reference Range Interpretation Comments MAGNESIUM (BEAKER) (test code = 1.8 mg/dL 1.6-2.6 627) BASIC METABOLIC [id number] 06:25:00 Test Item Value Reference Range Interpretation [...] PATIEN TS. CBC W/PLT COUNT & AUTO [id number] 05:52:00 Test Item Value Reference Range Interpretation [...] PERCENT (BEAKER) (test code = 2801) [place], HEAD TELLER IN OR/30 MINUTE [id number] 15:45:00Reason for exam:- >ACDF C5-7 ANTERIORFINAL REPORT Intraoperative fluoroscopy. CLINICAL HISTORY: ACDF C5-7 ANTERIOR. FINDINGS: Two fluoroscopically acquired images were acquired by the referring physician. An intraoperative verbal report was not requested. Fluoroscopy was not performed by the undersigned. Fluoroscopy time: 20 seconds. Two images. Signed: Delmar Shaikh MDReport Verified Date/Time: 02/01/2019 15:45:42 Reading Location: [address] Consult Reading Room [place], HEAD TELLER IN OR/30 MINUTE [id number] 12:46:00 Reason for exam:->Cervical radiculopathyFINAL REPORT Cervical spine. CLINICAL HISTORY: Cervical radiculopathy. COMPARISON STUDY: None. FINDINGS: A single, lateral intraoperative fluoroscopically acquired image is submitted for interpretation. A radiopaque marker is seen anteriorly at the C6/C7 level. An intraoperative verbal report was given to Dr. Griffith who is in agreement. Signed: Delmar Shaikh MDReport Verified Date/Time: 02/01/2019 12:46:41 Reading Location: [facility] [id number] Consult Reading Room
[2023-09-17 02:14] LABS: Absolute Lymphocytes (CBC) 2.6 K/uL (0.7-4.9); Hematocrit 39.8 % (36.0-45.0); Lymphocytes % 26.1 % (15.3-44.8); MCV 93.4 fL (80-100); MPV 10.9 fL (7.6-11.3); Platelets 156 thou/uL (152-406); RBC Red Blood Cell Count 4.26 M/uL (3.86-4.86)
[2023-09-17 02:15] LABS: Protime INR 1.05
[2023-09-17] MEDS ORDERED: NITROGLYCERIN 1 GM PKT TD ONE (02:49)
[2023-09-17] MEDS ORDERED: ASPIRIN 81 MG CHEWABLE TABLET ONE (02:49)
[2023-09-17 03:18] LABS: Bicarbonate 25 mEq/L (21-32); Potassium 3.8 mEq/L (3.5-5.1); Sodium Level 141 mEq/L (136-145)
[2023-09-17 03:19] LABS: ALT/SGPT 25 U/L (13-56); AST/SGOT 18 U/L (15-37); Alkaline Phosphatase 100 U/L (45-117); BUN Blood Urea Nitrogen 19 mg/dL (7-18); Bilirubin Direct < 0.1 mg/dL (0-0.2); Bilirubin Indirect, Calculated ND mg/dL (0.2-0.8); Bilirubin Total 0.3 mg/dL (0.2-1.0); Glomerular Filtration Rate 72 ml/min (=/>90); Glucose Level 110 mg/dL (74-106)
[2023-09-17 03:20] LABS: Albumin 3.3 g/dL (3.4-5.0); Magnesium 1.9; NT PRO-BNP 587 pg/mL (<125)
[2023-09-17 03:21] LABS: Troponin High Sensitivity 626.5 (<58.9)
[2023-09-17] MEDS ORDERED: PANTOPRAZOLE 40 MG INJ ONE (03:30)
--- NOTE | 2023-09-17 03:43 | ER ---
Nurse's Notes [facility] Ian Name: Angelica Daily Age: 63 yrs Sex: Female : 1960 Arrival Date: 09/17/2023 Time: 01:35 Bed 13 Private MD: Diagnosis: Chest pain, unspecified;Subsequent non-ST elevation (NSTEMI) myocardial infarction Presentation: 09/17 01:45 Chief complaint: Patient states: SUDDEN ONSET OF CHEST PAIN RADIATING TO LEFT ARM. rv DENIES SOB. Coronavirus screen: At this time, the client does not indicate any symptoms associated with coronavirus-19. Ebola Screen: No symptoms or risks identified at this time. Initial Sepsis Screen: Does the patient meet any 2 criteria? Yes Does the patient have a suspected source of infection? No. Patient's initial sepsis screen is negative. Risk Assessment: Do you want to hurt yourself or someone else? Patient reports no desire to harm self or others. Onset of symptoms was September 17, 2023. 01:45 Method Of Arrival: Ambulatory rv 01:45 Acuity: ILIR 2 rv Triage Assessment: 01:46 General: Appears uncomfortable, Behavior is calm, cooperative. Pain: Complains of pain rv in chest. Neuro: Level of Consciousness is awake, alert, Oriented to person, place. Cardiovascular: Chest pain radiates to left arm(s). Respiratory: Airway is patent Respiratory effort is even, unlabored. Historical: - Allergies: 01:46 DARRYL INHIBITORS; rv 01:46 Codeine; rv 01:46 Corlanor; rv 01:46 HIgh tolerance to PO Benadryl; rv 01:46 Hydrocodone-Acetaminophen; rv 01:46 Lisinopril; rv 01:46 Metoprolol Tartrate; rv 01:46 Multi foods and inhalants; rv 01:46 Oxycodone; rv 01:46 Percocet; rv 01:46 Phenergan; rv 01:46 Sulfa (Sulfonamide Antibiotics); rv 01:46 Vicodin; rv - Home Meds: 01:46 Depakote ER 250 mg Oral Tb24 [Active]; rv - PMHx: 01:46 adhd; ankylosing spondylitis arthritis; Asthma; Crohn's; Depression; Hypertension; rv Hypothyroidism; Migraines; Rheumatoid Arthritis; - PSHx: 01:46 hip; knee; neck; rv - Immunization history:: Adult Immunizations up to date. - Social history:: Smoking status: Patient denies any tobacco usage or history of. - Family history:: not pertinent. Screenin:41 [facility] ED Fall Risk Assessment (Adult) History of falling in the last 3 months, la4 including since admission No falls in past 3 months (0 pts) Confusion or Disorientation No (0 pts) Intoxicated or Sedated No (0 pts) Impaired Gait No (0 pts) Mobility Assist Device Used No (0 pt) Altered Elimination No (0 pt) Score/Fall Risk Level 0 - 2 = Low Risk Oriented to surroundings, Provided non-skid footwear, Hourly rounding (assess needs \T\ fall precautionary measures) done. Abuse screen: Denies threats or abuse. Denies injuries from another. Nutritional screening: No deficits noted. Tuberculosis screening: No symptoms or risk factors identified. Assessment: 02:41 Reassessment: No changes from previously documented assessment. Patient and/or family la4 updated on plan of care and expected duration. Pain level reassessed. Patient is alert, oriented x 3, equal unlabored respirations, skin warm/dry/pink. Reports chest pain has not subsided. Request nitroglycerin tablet. Nitro paste ordered. Will continue to monitor. Patient states symptoms have not improved. General: Appears uncomfortable, Behavior is cooperative. Pain: Complains of pain in xiphoid area and mid-sternal area Pain does not radiate. Pain currently is 6 out of 10 on a pain scale. Quality of pain is described as aching, pressure. Neuro: No deficits noted. [place] Agitation-Sedation Scale (RASS): 0 - Alert and Calm Level of Consciousness is awake, alert, obeys commands, Oriented to person, place, time, situation, Appropriate for age Voucher Clerk are equal bilaterally. Cardiovascular: No deficits noted. Reports chest pain, Denies shortness of breath. Respiratory: No deficits noted. Airway is patent Trachea midline Respiratory effort is even, unlabored, Breath sounds are clear bilaterally. GI: No deficits noted. Bowel sounds present X 4 quads. Reports nausea. : No deficits noted. No signs and/or symptoms were reported regarding the genitourinary system. 07:15 Reassessment: Patient appears in no apparent distress at this time. Patient and/or db family updated on plan of care and expected duration. Pain level reassessed. Patient is alert, oriented x 3, equal unlabored respirations, skin warm/dry/pink. NURSING IS RESTING IN NAD. RESPIRATIONS EVEN AND UNLABORED. 07:55 Reassessment: CALLED UNIT TO GIVE REPORT. NURSE STATES NOT READY AND WILL CALL BACK. db 08:00 Reassessment: NOTED PATIENT INITIAL PTT NOT DRAWN BY PREVIOUS SHIFT. NOTIFIED CHARGE db NURSE. REQUESTED LAB TO RUN INITIAL PTT. STATES IS UNABLE TO RUN DUE TO OVER 4 HOURS WILL DRAW PTT NOW. 08:12 Reassessment: REPORT GIVEN TO ZAIRA GARVEY. WILL DRAW PTT AND TRANSFER PT TO FLOOR. db Vital Signs: 01:45 BP 134 / 91; Pulse 89; Resp 18; Temp 98; Pulse Ox 95% ; Weight 61.5 kg; Height 5 ft. 3 rv in. ; 02:41 BP 124 / 76; Pulse 80; Resp 18; Pulse Ox 98% on R/A; la4 04:00 BP 136 / 81; Resp 18; Pulse Ox 98% ; la4 06:09 BP 128 / 80; Pulse 73; Resp 20; Pulse Ox 94% on R/A; la4 07:15 BP 119 / 72; Pulse 77; Resp 16; Pulse Ox 96% on R/A; db 08:22 BP 135 / 95; Pulse 75; Resp 18; Pulse Ox 96% ; db 01:45 Body Mass Index 24.02 (61.50 kg, 160.02 cm) rv Vitals: 02:41 Cardiac Rhythm Assessment Regular. la4 [place] Coma Score: 02:41 Eye Response: spontaneous(4). Motor Response: obeys commands(6). Verbal Response: la4 oriented(5). Total: 15. 04:00 Eye Response: spontaneous(4). Motor Response: obeys commands(6). Verbal Response: la4 oriented(5). Total: 15. ED Course: 01:43 Patient arrived in ED. snw 01:44 Bob Donis MD is Attending Physician. snw 01:44 Amber An[facility]C [facility]. snw 01:46 Triage completed. rv 01:47 Arm band placed on right wrist. rv 01:50 Patient has correct armband on for positive identification. Placed in gown. Bed in low la4 position. Call light in reach. Side rails up X2. 01:50 Provided Education on: plan of care discussed. Client placed on continuous cardiac and la4 pulse oximetry monitoring. NIBP monitoring applied. 01:50 No provider procedures requiring assistance completed. Inserted saline lock: 20 gauge la4 in left forearm, using aseptic technique. 02:04 XRAY Chest (1 view) In Process Unspecified. EDMS 02:40 Garth Yu RN is Primary Nurse. la4 03:08 US Abdomen Limited In Process Unspecified. EDMS 03:42 Jay Rice MD is Hospitalizing Provider. snw 04:30 Awaiting bed assignment. la4 04:30 Troponin High Sensitivity Sent. la4 04:30 Creatine Phosphokinase Sent. la4 04:30 Inserted saline lock: 22 gauge in right forearm, using aseptic technique. la4 04:37 Patient admitted, IV remains in place. la4 08:27 Repeat lab(s) drawn. by me, sent to lab. db Administered Medications: 02:40 Drug: Aspirin PO Chewable Tablet 324 mg PO once; 81 mg tablets x 4 Route: PO; la4 03:22 Follow up: Response: Pain is decreased nw1 02:40 Drug: Nitroglycerin Transdermal Ointment 2 % 1 inches Transdermal once {Note: BP 126/86 la4 HR 93.} Route: Transdermal; Site: anterior chest wall; 03:22 Follow up: Response: Pain is decreased nw1 03:22 Drug: Pantoprazole IVP 40 mg IVP once Route: IVP; Site: left forearm; nw1 04:10 Drug: Heparin ([place] Drip) 12 units/kg/[place] - ([place] [address] units, D5W IV 500 ml) IV at la4 calculated rate Per protocol; Max initial rate 1000 units/hr {Co-Signature: nw1 (Dalila Cole RN).} Route: IV; Rate: calculated rate; Site: left forearm; 08:56 Follow up: IV Status: Infusion continued upon admission db 04:11 Drug: Heparin ([place]-Bolus No thrombolytic) - HEParin IVP 60 units/kg IVP once; Max 5000 la4 units {Co-Signature: nw1 (Dalila Cole RN).} Route: IVP; Site: left forearm; 08:09 Follow up: Response: No adverse reaction db Medication: 02:41 VIS not applicable for this client. la4 Outcome: 03:42 Decision to Hospitalize by Provider. snw 04:30 Condition: stable la4 04:30 Instructed on the need for admit, 07:55 Admitted to ER Hold. Please see [facility] for further documentation. db 08:35 Admitted to Tele accompanied by nurse, via wheelchair, with chart, Report called to db MARE 08:57 Patient left the ED. db Signatures: Dispatcher [employer] EDMS Amber Anaya, FRANTZ-C NAPHTHALENE STILL OPERATOR-CsnAce Downing, RN RN Elida Landeros RN RN Bob Quinones MD MD sp4 Garth Yu RN RN la4 Dalila Cole, ZAIRA RN nw1 Dalila Cole RN nw1 Corrections: (The following items were deleted from the chart) 07:56 07:55 Reassessment: Patient appears in no apparent distress at this time. Patient db and/or family updated on plan of care and expected duration. Pain level reassessed. Patient is alert, oriented x 3, equal unlabored respirations, skin warm/dry/pink. NURSING IS RESTING IN NAD. RESPIRATIONS EVEN AND UNLABORED. db
--- NOTE | 2023-09-17 03:43 | EDPHYS ---
Physician Documentation [facility] Name: Angelica Daily Age: 63 yrs Sex: Female : 1960 Arrival Date: 09/17/2023 Time: 01:35 Bed 13 Private MD: ED Physician Bob Donis HPI: 09/17 01:49 This 63 yrs old Female presents to ER via Ambulatory with complaints of chest pain. snw 01:49 The patient or guardian reports chest pain that is located primarily in the substernal snw area. Onset: acutely, intermittently today, more constant this evening. awoke this am with chest pain, took "very " nitro. no relief. The pain radiates to back. The chest pain is described as sharp, squeezing. Duration: The patient or guardian reports multiple episodes. The patient has experienced similar episodes in the past. The patient has not recently seen a physician. Historical: - Allergies: 01:46 DARRYL INHIBITORS; rv 01:46 Codeine; rv 01:46 Corlanor; rv 01:46 HIgh tolerance to PO Benadryl; rv 01:46 Hydrocodone-Acetaminophen; rv 01:46 Lisinopril; rv 01:46 Metoprolol Tartrate; rv 01:46 Multi foods and inhalants; rv 01:46 Oxycodone; rv 01:46 Percocet; rv 01:46 Phenergan; rv 01:46 Sulfa (Sulfonamide Antibiotics); rv 01:46 Vicodin; rv - Home Meds: 01:46 Depakote ER 250 mg Oral Tb24 [Active]; rv - PMHx: 01:46 adhd; ankylosing spondylitis arthritis; Asthma; Crohn's; Depression; Hypertension; rv Hypothyroidism; Migraines; Rheumatoid Arthritis; - PSHx: 01:46 hip; knee; neck; rv - Immunization history:: Adult Immunizations up to date. - Social history:: Smoking status: Patient denies any tobacco usage or history of. - Family history:: not pertinent. ROS: 01:47 Eyes: Negative for injury, pain, redness, and discharge, ENT: Negative for injury, snw pain, and discharge, Neck: Negative for injury, pain, and swelling, 01:47 Respiratory: Negative for shortness of breath, cough, wheezing, and pleuritic chest pain, Abdomen/GI: Negative for abdominal pain, nausea, vomiting, diarrhea, and constipation, Back: Negative for injury and pain, : Negative for injury, bleeding, discharge, and swelling, MS/Extremity: Negative for injury and deformity, Skin: Negative for injury, rash, and discoloration, Psych: Negative for depression, anxiety, suicide ideation, homicidal ideation, and hallucinations, :47 Constitutional: Positive for body aches, malaise, :47 Cardiovascular: Positive for chest pain, of the anterior aspect of right upper chest, anterior aspect of left upper chest and mid-sternal area, radiation to back, :47 Neuro: Positive for migraine since this am, resolved at this time, Exam: :45 Head/Face: Normocephalic, atraumatic. Eyes: Pupils equal round and reactive to light, snw extra-ocular motions intact. Lids and lashes normal. Conjunctiva and sclera are non-icteric and not injected. Cornea within normal limits. Periorbital areas with no swelling, redness, or edema. ENT: Nares patent. No nasal discharge, no septal abnormalities noted. Tympanic membranes are normal and external auditory canals are clear. Oropharynx with no redness, swelling, or masses, exudates, or evidence of obstruction, uvula midline. Mucous membranes moist. Neck: Trachea midline, no thyromegaly or masses palpated, and no cervical lymphadenopathy. Supple, full range of motion without nuchal rigidity, or vertebral point tenderness. No Meningismus. Chest/axilla: Normal chest wall appearance and motion. Nontender with no deformity. No lesions are appreciated. Cardiovascular: Regular rate and rhythm with a normal S1 and S2. No gallops, murmurs, or rubs. Normal PMI, no JVD. No pulse deficits. Respiratory: Lungs have equal breath sounds bilaterally, clear to auscultation and percussion. No rales, rhonchi or wheezes noted. No increased work of breathing, no retractions or nasal flaring. Abdomen/GI: Soft, non-tender, with normal bowel sounds. No distension or tympany. No guarding or rebound. No evidence of tenderness throughout. Back: No spinal tenderness. No costovertebral tenderness. Full range of motion. Skin: Warm, dry with normal turgor. Normal color with no rashes, no lesions, and no evidence of cellulitis. MS/ Extremity: Pulses equal, no cyanosis. Neurovascular intact. Full, normal range of motion. Neuro: Awake and alert, GCS 15, oriented to person, place, time, and situation. Cranial nerves II-XII grossly intact. Motor strength 5/5 in all extremities. Sensory grossly intact. Cerebellar exam normal. Normal gait. Psych: Awake, alert, with orientation to person, place and time. Behavior, mood, and affect are anxious. 01:45 Constitutional: The patient appears alert, awake, anxious, pale, Vital Signs: 01:45 BP 134 / 91; Pulse 89; Resp 18; Temp 98; Pulse Ox 95% ; Weight 61.5 kg; Height 5 ft. 3 rv in. ; 02:41 BP 124 / 76; Pulse 80; Resp 18; Pulse Ox 98% on R/A; la4 04:00 BP 136 / 81; Resp 18; Pulse Ox 98% ; la4 06:09 BP 128 / 80; Pulse 73; Resp 20; Pulse Ox 94% on R/A; la4 07:15 BP 119 / 72; Pulse 77; Resp 16; Pulse Ox 96% on R/A; db 08:22 BP 135 / 95; Pulse 75; Resp 18; Pulse Ox 96% ; db 01:45 Body Mass Index 24.02 (61.50 kg, 160.02 cm) rv [place] Coma Score: 02:41 Eye Response: spontaneous(4). Motor Response: obeys commands(6). Verbal Response: la4 oriented(5). Total: 15. 04:00 Eye Response: spontaneous(4). Motor Response: obeys commands(6). Verbal Response: la4 oriented(5). Total: 15. MDM: 01:44 Patient medically screened. snw 02:29 Differential diagnosis: abnormal EKG, acute myocardial infarction, anxiety, coronary snw artery disease stable angina, unstable angina. 02:34 The patient was given aspirin in the Emergency Department. Data reviewed: vital signs, snw nurses notes, lab test result(s), EKG, radiologic studies. 03:42 Management of patient was discussed with the following: Hospitalist: Dr. Rice. snw Electric Engine Mechanic: Dr. Hughes - will see in am. Counseling: I had a detailed discussion with the patient and/or guardian regarding the historical points, exam findings, and any diagnostic results supporting the discharge/admit diagnosis, lab results, radiology results, the need for further work-up and treatment in the hospital. Special discussion:. 03:43 Independent interpretation of the following test(s) in the Emergency Department EKG: w See my EKG interpretation above X-Ray: My interpretation is chest xray negative for consolidation, no widening of mediastinum. Response to treatment: the patient's symptoms have markedly improved after treatment. 04:07 ED course: US - TECHNIQUE: Real-time ultrasound of the right upper quadrant with image sp4 documentation. COMPARISON: No relevant prior studies available. FINDINGS: Gallbladder: No gallstones. No gallbladder wall thickening. No pericholecystic fluid. Sonographic Florez's sign is reportedly negative. Common bile duct: Common bile duct is normal. No stones. No dilation. IMPRESSION: No gallstones. No gallbladder wall thickening. No pericholecystic fluid. Sonographic Florez's sign is reportedly negative.. ED course: Chest X ray - TECHNIQUE: Frontal view of the chest. COMPARISON: No relevant prior studies available. FINDINGS: Lungs: Unremarkable. No consolidation. Pleural space: Unremarkable. No pneumothorax. Heart: Unremarkable. Mediastinum: Unremarkable. Normal mediastinal contour. Bones/joints: Postsurgical changes in the cervical spine. IMPRESSION: No acute findings in the chest. 09/17 01:45 Order name: Basic Metabolic Panel; Complete Time: 03:25 w 09/17 03:46 Interpretation: Within normal limits. [facility] 09/17 01:45 Order name: CBC with Diff; Complete Time: 02:26 [facility] 09/17 01:45 Order name: LFT's; Complete Time: 03:25 [facility] 09/17 03:46 Interpretation: Within normal limits. [facility] 09/17 01:45 Order name: Magnesium; Complete Time: 03:25 [facility] 09/17 01:45 Order name: NT PRO-BNP; Complete Time: 03:25 w 09/17 03:46 Interpretation: Abnormal: 587. w 09/17 01:45 Order name: PT-INR [facility] 09/17 01:45 Order name: Troponin HS; Complete Time: 03:25 [facility] 09/17 03:46 Interpretation: Abnormal: 626.5. w 09/17 01:48 Order name: Lipase; Complete Time: 02:39 w 09/17 04:08 Order name: Creatine Phosphokinase [facility] 09/17 04:08 Order name: Creatine Phosphokinase [facility] 09/17 04:08 Order name: Creatine Phosphokinase [facility] 09/17 04:08 Order name: Creatine Phosphokinase [facility] 09/17 04:08 Order name: Lipid Profile [facility] 09/17 04:08 Order name: Lipid Profile [facility] 09/17 04:08 Order name: Troponin High Sensitivity [facility] 09/17 04:08 Order name: Troponin High Sensitivity [facility] 09/17 04:08 Order name: Troponin High Sensitivity [facility] 09/17 04:08 Order name: Troponin High Sensitivity [facility] 09/17 05:07 Order name: Lipid Profile [facility] 09/17 08:13 Order name: Ptt, Activated db 09/17 08:13 Order name: Ptt, Activated: NOW 2ND db 09/17 01:45 Order name: XRAY Chest (1 view) w 09/17 02:40 Order name: US Abdomen Limited snw 09/17 01:45 Order name: EKG; Complete Time: 01:45 snw 09/17 03:49 Order name: EKG; Complete Time: 03:50 sp4 09/17 01:45 Order name: Cardiac monitoring; Complete Time: 02:40 snw 09/17 01:45 Order name: EKG - Nurse/Tech; Complete Time: 02:40 snw 09/17 01:45 Order name: IV Saline Lock; Complete Time: 02:41 snw 09/17 01:45 Order name: Labs collected and sent; Complete Time: 02:41 snw 09/17 01:45 Order name: O2 Per Protocol; Complete Time: 02:41 snw 09/17 01:45 Order name: O2 Sat Monitoring; Complete Time: 02:41 snw 09/17 03:49 Order name: EKG - Nurse/Tech; Complete Time: 05:02 sp4 EC:45 Rate is 81 beats/min. Rhythm is regular. QRS [place] is Normal. T waves are Flattened in snw leads V4, V5, V6. Clinical impression: NSR w/ Non-specific ST/T Changes. Administered Medications: 02:40 Drug: Aspirin PO Chewable Tablet 324 mg PO once; 81 mg tablets x 4 Route: PO; la4 03:22 Follow up: Response: Pain is decreased nw1 02:40 Drug: Nitroglycerin Transdermal Ointment 2 % 1 inches Transdermal once {Note: BP 126/86 la4 HR 93.} Route: Transdermal; Site: anterior chest wall; 03:22 Follow up: Response: Pain is decreased nw1 03:22 Drug: Pantoprazole IVP 40 mg IVP once Route: IVP; Site: left forearm; nw1 04:10 Drug: Heparin ([place] Drip) 12 units/kg/[place] - ([place] [address] units, D5W IV 500 ml) IV at la4 calculated rate Per protocol; Max initial rate 1000 units/hr {Co-Signature: nw1 (Dalila Cole RN).} Route: IV; Rate: calculated rate; Site: left forearm; 08:56 Follow up: IV Status: Infusion continued upon admission db 04:11 Drug: Heparin ([place]-Bolus No thrombolytic) - HEParin IVP 60 units/kg IVP once; Max 5000 la4 units {Co-Signature: nw1 (Dalila Cole RN).} Route: IVP; Site: left forearm; 08:09 Follow up: Response: No adverse reaction db Disposition: 03:50 Co-signature as Attending Physician, Bob Donis MD I agree with the assessment sp4 and plan of care. I reviewed the patient's care provided by Advanced Practice Provider \\T\\ agree w/ the diagnosis \\T\\ care plan. I personally saw the pt \\T\\ performed a substantive portion of the visit, incldng all aspects of the (History/Exam/Medical Decision Making). Disposition Summary: 09/17/23 03:42 Hospitalization Ordered Notes: Hospitalization Status: Inpatient Admission snw Provider: Jay Rice snw Condition: Stable snw Problem: new snw Symptoms: have improved snw Bed/Room Type: Standard snw Location: Telemetry/MedSurg (Inpatient)(09/17/23 07:45) eb Room Assignment: 406(09/17/23 07:45) eb Diagnosis - Chest pain, unspecified snw - Subsequent non-ST elevation (NSTEMI) myocardial infarction snw Forms: - Medication Reconciliation Form snw - SBAR form snw - Leadership Thank You Letter snw Signatures: Dispatcher [employer] Amber Monsivais FNP-C FNP-Jaqueline Zengian, RN RN bp Siobhan Oliveira Ronaldo, RN RN rv Bob Donis MD MD sp4 Garth Yu RN RN la4 Dalila Cole, ZAIRA RN nw1 Elida Sandhu RN db Dalila Cole RN nw1 Corrections: (The following items were deleted from the chart) 03:00 02:19 Miscellaneous Lab Test+R.LAB.BRZ ordered. EDMS EDMS 05:43 03:42 Telemetry/MedSurg (Inpatient) snw bp 05:43 03:42 sn bp 07:45 05:43 [facility] ER HOLD bp eb 07:45 05:43 ERHOLD- bp eb
[2023-09-17] MEDS ORDERED: ONDANSETRON 4 MG/2 ML VIAL IV PRN (04:02)
[2023-09-17] MEDS ORDERED: ACETAMINOPHEN 325 MG TABLET PO PRN (04:02)
--- NOTE | 2023-09-17 04:02 | P.HP ---
Certification for Inpatient Patient admitted to: Observation With expected LOS: <2 Midnights Practitioner: I am a practitioner with admitting privileges, knowledge of patient current condition, hospital course, and medical plan of care. Services: Services provided to patient in accordance with Admission requirements found in Title 42 Section 412.3 of the Code of Federal Regulations Patient History Date of Service: 09/17/23 Reason for admission: NSTEMI, chest pain History of Present Illness: 63-year-old female patient with medical history significant for hypertension, hyperlipidemia, history of ADHD and depression who came to the emergency with complaint of persistent chest discomfort. She reported pain that started earlier with radiation between the shoulder blades and down the left hand. She has had issues with a migraine prior and she used Tylenol without any significant change. She denies nausea, vomiting, fever, chills, cough, shortness of breath. She denies exertional chest pain prior to now. She does have a strong family history of coronary artery disease in her father. She stated to come to the emergency room and on initial evaluation her troponin was elevated at over 600 without significant EKG changes. She was started on heparin drip for ACS protocol and was asked to be evaluated by natural gas treating unit operator. She is admitted for chest pain/NSTEMI work-up. Allergies hydrocodone Allergy (Verified 10/02/16 08:48) Rash ragweed pollen Allergy (Verified 02/04/19 03:41) Shortness of breath Sulfa (Sulfonamide Antibiotics) Allergy (Verified 10/02/16 08:48) Hives/Rash DARRYL Inhibitors Adverse Reaction (Verified 02/04/19 03:41) Shortness of breath codeine Adverse Reaction (Verified 10/02/16 08:48) Nausea/Vomiting milk Adverse Reaction (Verified 02/04/19 03:41) Nausea/Vomiting promethazine [From Phenergan] Adverse Reaction (Verified 10/02/16 08:48) visual hallucinations Home Medications: Acetaminophen [Tylenol Extra Strength] 500 mg PO DAILY PRN 10/02/16 Albuterol Inhaler [Ventolin Inhaler] 2 puff IH Q6H PRN 10/02/16 Dextroamphetamine Sulfate [Zenzedi] 5 mg PO DAILY 10/02/16 Dextroamphetamine Sulfate [Zenzedi] 10 mg PO BID 10/02/16 Divalproex ER [Depakote *ER*] 250 mg PO DAILY WITH BREAKFAST 10/02/16 Divalproex [Depakote Sprinkle] 125 mg PO BEDTIME 10/02/16 Levalbuterol [Xopenex] 1 puff IH Q6H PRN 10/02/16 Levothyroxine [Synthroid] 100 mcg PO [id number] 10/02/16 Quetiapine [Seroquel] 25 mg PO DAILY WITH BREAKFAST 10/02/16 Quetiapine [Seroquel] 100 mg PO BEDTIME 10/02/16 Temazepam [Restoril] 30 mg PO BEDTIME PRN 10/02/16 Zafirlukast [Accolate] 20 mg PO BID 10/02/16 Albuterol Sulfate [Proventil Hfa] 2 puff IH PRN 02/04/19 Diclofenac Sodium [Voltaren] 02/04/19 Diclofenac Sodium [Voltaren] 1 luís TOP DAILY 02/04/19 Irbesartan [Avapro] 300 mg PO DAILY 02/04/19 Nitroglycerin [Nitrostat*] 0.4 mg SL PRN PRN 02/04/19 Rosuvastatin [Crestor*] 40 mg PO DAILY 02/04/19 Vilazodone HCl [Viibryd] 20 mg PO DAILY 02/04/19 Tramadol HCl [Ultram] 50 mg PO Q6HP PRN #30 tablet 02/05/19 - Past Medical/Surgical History Diabetic: No -: HTN -: tachycardia -: RA -: Asthma -: Ankylosing sondylitis arthritis -: ADHD -: depression -: migraines -: crohns -: sinus sx -: neck sx -: left arm sx - Family History Father -: Heart disease, Hypertension Mother -: Stroke - Social History Alcohol use: Yes CD- Drugs: No Caffeine use: Yes Review of Systems General: Unremarkable Eyes: Unremarkable ENT: Unremarkable Respiratory: Unremarkable Cardiovascular: Chest Pain Gastrointestinal: Unremarkable Genitourinary: Unremarkable Musculoskeletal: Unremarkable Integumentary: Unremarkable Physical Examination - Physical Exam General: Alert, Oriented x3 HEENT: Atraumatic, Normocephalic Cardiovascular: Regular rate/rhythm, Normal S1 S2 Gastrointestinal: Soft and benign Musculoskeletal: No swelling Neurological: Normal speech, Normal strength at 5/5 x4 extr - Studies Laboratory Data (last 24 hrs) 11/09/17/23 09/17/23 02:33 01:53 01:53 WBC Hgb Hct Plt Count PT 11.5 INR 1.05 Sodium 141 Potassium 3.8 BUN 19 H Creatinine 0.89 Glucose 110 H Magnesium 1.9 Total Bilirubin 0.3 AST 18 ALT 25 Alkaline Phosphatase 100 Lipase 95 H 09/17/23 01:53 WBC 9.90 Hgb 13.4 Hct 39.8 Plt Count 156 PT INR Sodium Potassium BUN Creatinine Glucose Magnesium Total Bilirubin AST ALT Alkaline Phosphatase Lipase Assessment and Plan - Plan NSTEMI: Patient has elevated troponin on initial lab and chest pain. Heparin drip was started as per ACS protocol. Cardiology consultation placed. We will continue serial troponin trend. We will get echocardiogram to assess cardiac function. Plans for possible left heart cath as per natural gas treating unit operator. Hypertension: We will monitor vital signs per unit protocol and continue anti hypertensive medication. History of ADHD we will continue routine outpatient medication Hypothyroidism: We will continue levothyroxine Prophylaxis: Heparin drip started for the ACS and should suffice for DVT prophylaxis CODE STATUS: Full code Disposition: We will treat her NSTEMI and she will be discharged once she is cleared by cardiology. - Advance Directives Does patient have a Living Will: Yes Does patient have a Durable POA for Healthcare: Yes
[2023-09-17] MEDS ORDERED: HEPARIN/D5W 25,000 UNIT/500 ML BAG IV ONE (04:19)
[2023-09-17] MEDS ORDERED: HEPARIN 5000 UNIT/ML 1 ML VIAL ONE ×2 (04:19→16:05)
[2023-09-17] MEDS ORDERED: MORPHINE 2 MG/ML SYR IV PRN (04:35)
[2023-09-17 05:09] LABS: Troponin High Sensitivity 726.8 (<58.9)
[2023-09-17 09:25] VITALS: BMI 29.2
[2023-09-17] MEDS ORDERED: HEPARIN/D5W 25,000 UNIT/500 ML BAG IV SCH (11:00)
[2023-09-17 13:02] LABS: Troponin High Sensitivity 431.2 pg/mL (<58.9)
--- NOTE | 2023-09-17 13:46 | RAD REPORT ---
EXAM DESCRIPTION: US - Abdomen Exam Limited - 09/17/2023 3:06 am CLINICAL HISTORY: The patient is 63 years old and is Female; PAIN TECHNIQUE: Real-time ultrasound of the right upper quadrant with image documentation. COMPARISON: No relevant prior studies available. FINDINGS: Gallbladder: No gallstones. No gallbladder wall thickening. No pericholecystic fluid. So nographic Florez's sign is reportedly negative. Common bile duct: Common bile duct is normal. No stones. No dilation. IMPRESSION: No gallstones. No gallbladder wall thickening. No pericholecystic fluid. Sonographic Mur phy's sign is reportedly negative. Electronically signed by: Mehran Broderick MD 09/17/2023 03:40 AM METALLURGICAL LABORATORY ASSISTANT Due to temporary technical issues with the PACS/Fluency reporting system, reports are being signed by the in house radiologists without review as a courtesy to insure prompt reporting. The interpreting radiologist is fully responsible for the content of the report.
--- NOTE | 2023-09-17 13:48 | RAD REPORT ---
EXAM DESCRIPTION: RAD - Chest Single View - 09/17/2023 2:03 am CLINICAL HISTORY: The patient is 63 years old and is Female; CHEST PAIN TECHNIQUE: Frontal view of the chest. COMPARISON: No relevant prior studies available. FINDINGS: Lungs: Unremarkable. No consolidation. Pleural space: Unremarkable. No pneumothorax. Heart: Unremarkable. Mediastinum: Unremarkable. Normal mediastinal contour. Bones/joints: Postsurgical changes in the cervical spine. IMPRESSION: No acute findings in the chest. Electronically signed by: Mehran Broderick MD 09/17/2023 02:27 AM NAPPER GRINDER Due to temporary technical issues with the PACS/Fluency reporting system, reports are being signed by the in house radiologists without review as a courtesy to insure prompt reporting. The interpreting radiologist is fully responsible for the content of the report.
--- NOTE | 2023-09-17 14:23 | EKG ---
Test Date: 2023-09-17 Test Time: 03:57:30 Provisioning Analyst: ROSALVA MEASUREMENT RESULTS: Intervals: Rate: 77 [place]: 180 QRSD: 86 QT: 402 QTc: 454 [place]: P: 70 [place]: 180 QRS: 64 T: 122 INTERPRETIVE STATEMENTS: Normal sinus rhythm Septal infarct, age undetermined Abnormal ECG Compared to ECG 02/03/2019 22:51:27 Myocardial infarct finding now present Electronically Signed On 09-17-23 14:21:54 REDUCING MACHINE OPERATOR by Colton Hughes
[2023-09-17] MEDS ORDERED: NA CHLORIDE 0.9% 500 ML ONE (15:27)
[2023-09-17] MEDS ORDERED: ACETAMINOPHEN 325 MG TABLET ONE (15:32)
[2023-09-17] MEDS ORDERED: LIDOCAINE 1% 20 ML MDV ONE (16:04)
[2023-09-17] MEDS ORDERED: HEPA 1000U/500MLS 2,000 UNIT/1,000 ML BAG IV ONE (16:04)
[2023-09-17] MEDS ORDERED: FENTANYL CITR 100 MCG/2 ML ONE (16:05)
[2023-09-17] MEDS ORDERED: MIDAZOLAM HCL 2 MG/2 ML INJ ONE (16:05)
[2023-09-17] MEDS ORDERED: VERAPAMIL HCL 10 MG/4 ML VIAL IV ONE (16:06)
[2023-09-17 18:57] VITALS: TEMP 98
[2023-09-17 18:58] VITALS: O2SAT 95
[2023-09-17 19:01] VITALS: BP 112/78
--- NOTE | 2023-09-17 19:44 | OP ---
Date of Procedure: 09/17/2023 Surgeon: GIAN FONTENOT Procedures Performed: 1.Selective coronary angiogram. 2.Left heart catheterization. 3.LV-gram. Indication: Non-ST elevation myocardial infarction. Access: Right radial artery 6-Uzbek closed with TR band. Complications: None. Bleeding: Less than 20 mL. Description Of Procedure: After risks, benefits, and alternatives were explained, the patient agreed to procedure and signed informed consent. The patient was brought into cardiac catheterization lab[facility], prepped and draped in usual sterile fashion. Then, I accessed right radial artery using pedi atric micropuncture kit, placed a 6-Uzbek slender sheath, and took 5-Uzbek [place] 4.0 catheter into the aortic root, engaged the left main and the right coronary artery, took standard views. Catheter was pushed over the wire and measured the LVEDP and then pullback not recording gradient and then I e xchanged for angled pigtail, placed in the LV, and then performed LV gram and then removed the cathet er and sheath, placed TR band with good hemostasis. Findings: 1.Left main is large and normal. 2.LAD is large and normal with normal diagonal branches. 3.Left circumflex is normal and small. 4.RCA; large and normal, large and dominant and normal. 5.Normal LVEDP at 10 mmHg. 6.Normal left ventricular ejection fraction with normal wall motion. Conclusion: Normal coronary arteries and normal EF and LVEDP. Recommendations: Search for other causes of mildly elevated troponin, rule out pulmonary embolism. I would recommend to check D-dimer and obtain an echo. SR/MODL Voice ID: [id number] Report ID: [id number]
--- NOTE | 2023-09-22 17:11 | EKG ---
Test Date: 2023-09-17 Test Time: 01:41:20 Wood Boatbuilder: RV MEASUREMENT RESULTS: Intervals: Rate: 81 AR: 180 QRSD: 76 QT: 354 QTc: 411 [place]: P: 75 AR: 180 QRS: 63 T: 116 INTERPRETIVE STATEMENTS: Normal sinus rhythm with sinus arrhythmia Septal infarct, age undetermined Abnormal ECG Compared to ECG 02/03/2019 22:51:27 Myocardial infarct finding now present Electronically Signed On 09-22-23 16:56:44 TAX ASSESSOR by Colton Hughes
== END 2023-09-17 20:49 | disposition left against medical advice (07) ==
LOC: ER 01:35 → ERHOLD 04:02 → 4TH 07:55
PROVIDERS: ADMIT Internal Medicine Nephrology; ATTEND Hospitalist
PROC: 4A023N7 Measurement of Cardiac Sampling and Pressure, Left Heart, Percutaneous Approach (ICD-10-PCS; principal; 2023-09-17)
PROC: B2111ZZ Fluoroscopy of Multiple Coronary Arteries using Low Osmolar Contrast (ICD-10-PCS; 2023-09-17)
DX: I21.4 Non-ST elevation (NSTEMI) myocardial infarction (principal); Z53.29 Procedure and treatment not carried out because of patient's decision for other reasons; I10 Essential (primary) hypertension; E03.9 Hypothyroidism, unspecified; F90.9 Attention-deficit hyperactivity disorder, unspecified type; E78.5 Hyperlipidemia, unspecified; G43.909 Migraine, unspecified, not intractable, without status migrainosus; F32.A Depression, unspecified; J45.909 Unspecified asthma, uncomplicated; M06.9 Rheumatoid arthritis, unspecified; K50.90 Crohn's disease, unspecified, without complications; Z79.899 Other long term (current) drug therapy; Z88.2 Allergy status to sulfonamides; Z88.5 Allergy status to narcotic agent; Z88.8 Allergy status to other drugs, medicaments and biological substances; Z91.011 Allergy to milk products; Z82.49 Family history of ischemic heart disease and other diseases of the circulatory system; Z82.3 Family history of stroke
CPT/HCPCS: 96365; 93005 ×2; 85025; 80048; 36415; 83735; 82550 ×2; 85610; 80061; 85379; 80076; 85730 ×2; 84484 ×4; 83690; 83880; 71045; 93458; 76937; 76705; 96375; 99285; 96366; C1893; Q9966; J1644 ×2; J2001; C9113; J2250; J3010; J2270; J2405; G0378 ×4; J7040

== ENCOUNTER 2024-04-27 07:51 | Day surgery (SDC) | payer BC ==
[2024-04-25 13:05] LABS: Absolute Basophils 0.1 K/uL (0-0.5); Absolute Eosinophils 0.8 K/uL (0-0.5); Absolute Lymphocytes (CBC) 1.8 K/uL (0.7-4.9); Absolute Monocytes 0.5 K/uL (0.1-1.3); Absolute Neutrophil 3.3 K/uL (1.8-8.0); Basophils % 1.4 % (0-1.3); Eosinophils % 12.8 % (0-4.4); Hematocrit 41.2 % (36.0-45.0); Hemoglobin 13.6 g/dL (12.0-15.0); Lymphocytes % 27.1 % (15.3-44.8); MCH 30.7 pg (27.0-35.0); MCHC 32.9 g/dL (32.0-36.0); MCV 93.1 fL (80-100); MPV 10.4 fL (7.6-11.3); Monocytes % 7.9 % (3.3-12.3); Neutrophils % 50.8 % (41.7-73.7); Platelets 144 thou/uL (152-406); RBC Red Blood Cell Count 4.42 M/uL (3.86-4.86); Red Cell Distribution Width 13.4 % (12.1-15.2)
[2024-04-25 13:20] LABS: Anion Gap 9.8 mEq/L (5.0-15.0); Potassium 3.8 mEq/L (3.5-5.1)
--- NOTE | 2024-04-26 13:51 | EKG ---
Test Date: 2024-04-25 Test Time: 13:01:20 Puff Iron Operator: PREO MEASUREMENT RESULTS: Intervals: Rate: 86 [place]: 190 QRSD: 82 QT: 352 QTc: 421 [place]: P: 74 [place]: 190 QRS: 72 T: 30 INTERPRETIVE STATEMENTS: Normal sinus rhythm Nonspecific T wave abnormality Abnormal ECG Compared to ECG 09/17/2023 03:57:30 T-wave abnormality now present Myocardial infarct finding no longer present Electronically Signed On 04-26-24 13:49:02 CDT by Colton Hughes
--- NOTE | 2024-04-26 13:51 | EKG ---
Test Date: 2024-04-25 Test Time: 13:06:38 Senior Accountant: PREO MEASUREMENT RESULTS: Intervals: Rate: 90 [place]: 182 QRSD: 80 QT: 354 QTc: 433 [place]: P: 74 [place]: 182 QRS: 65 T: 70 INTERPRETIVE STATEMENTS: Normal sinus rhythm Normal ECG Compared to ECG 04/25/2024 13:01:20 T-wave abnormality no longer present Electronically Signed On 04-26-24 13:49:01 CDT by Colton Hughes
[2024-04-27] MEDS: Ringers Lactate 1,000 ML IV ONE ×2 (08:15→11:54)
[2024-04-27] MEDS ORDERED: ONDANSETRON 4 MG/2 ML VIAL ONE (08:48)
[2024-04-27] MEDS ORDERED: propofoL 200 MG/20 ML VIAL IV ONE ×2 (08:48→10:24)
[2024-04-27] MEDS ORDERED: FENTANYL CITR 100 MCG/2 ML ONE (08:48)
[2024-04-27] MEDS ORDERED: LIDOCAINE 2% MPF 5 ML VIAL ONE (08:48)
[2024-04-27] MEDS ORDERED: KETOROLAC 30 MG/ML INJ ONE (08:48)
[2024-04-27] MEDS ORDERED: dexAMETHasone 10 MG/ML VIAL ONE (08:48)
[2024-04-27] MEDS ORDERED: ROCURONIUM 50 MG/5 ML VIAL IV ONE (08:49)
[2024-04-27] MEDS ORDERED: MIDAZOLAM HCL 2 MG/2 ML INJ ONE (08:49)
[2024-04-27] MEDS: CEFAZOLIN SODIUM 2 GM/VIAL ONE (10:09)
[2024-04-27] MEDS: LIDOCAINE HCL/EPINEPHRINE 20 ML MDV ONE (10:26)
[2024-04-27] MEDS ORDERED: NS 0.9% VIAL 10 ML ONE (10:49)
[2024-04-27] MEDS: CLINDAMYCIN 900MG/D5W 900 MG/50 ML IVPB IV ONE (11:31)
[2024-04-27] MEDS ORDERED: NS 0.9% VIAL 20 ML ONE (11:48)
[2024-04-27] MEDS ORDERED: NEOSTIGMINE 1 MG/ML -10 ML VIAL ONE (11:48)
[2024-04-27] MEDS ORDERED: Mastisol Adhesive Liq ONE (11:49)
[2024-04-27 14:54] VITALS: BP 132/59; TEMP 96.8; O2SAT 95
--- NOTE | 2024-05-01 08:29 | OP ---
Date of Procedure: 04/27/2024 Surgeon: ISABELLA LOMAS Preoperative Diagnosis: Chronic obstructive sleep apnea. Postoperative Diagnosis: Chronic obstructive sleep apnea. Procedure: Drug-induced sleep endoscopy under general sedation. Anesthesia: General. IV sedation with propofol was administered. Findings: Predominant anterior/posterior velopharyngeal closure with slight less than 20% lateral wall closure, and no evidence of complete concentric collapse. Complications: None. Disposition: Stable. The patient tolerated the procedure well. Indication For Procedure: The patient is a pleasant 63-year-old female with a chronic history of obstructive sleep apnea, refractory/intolerant to consistent CPAP use. These were indications to bring the patient to operative suite for the above-mentioned procedure. She understood. All questions were answered. Risks versus benefits, and complications were explained in detail and a consent was signed, which was placed in the chart. Description Of Procedure: The patient was transferred from the preoperative holding area to the operative suite by Department of Anesthesia, placed on the operating table supine and sedated with propofol. After propofol was given, The patient's airway was monitored with a flexible nasopharyngoscope over the course of at least 5 minutes. Once the patient started awakening, I was able to discern the velopharyngeal closure. The patient had predominant anterior/posterior velopharyngeal closure with slight lateral wall closure and no evidence of concentric collapse. The scope was completely withdrawn and the patient tolerated this procedure well. The patient met criteria for us to proceed with hyoid myotomy and suspension. Once she met criteria, then we proceeded to start the hyoid suspension procedure. OSITO/DENISSE Voice ID: [id number] Report ID: [id number] MILE
--- NOTE | 2024-05-01 18:00 | OP ---
Date of Procedure: 04/27/2024 Surgeon: ISABELLA LOMAS Preoperative Diagnosis: Chronic obstructive sleep apnea. Postoperative Diagnosis: Chronic obstructive sleep apnea. Procedure: Hyoid myotomy and suspension under general sedation. Specimens: None. Estimated Blood Loss: Less than 5 mL. Findings: Large fixed hyoid bone. No abnormal findings found. Complications: None. Disposition: Stable. The patient tolerated the procedure well. Indications For Procedure: Patient is a 63-year-old female who has been struggling with chronic obst ructive sleep apnea despite attempting to wear the CPAP mask. She is unable to wear for more than 4 hours per night, frequently pulling it off. Her sleep quality is poor with frequent daytime fatigue, nightly snoring, and frequent awakening throughout the night. These were indications to bring the p atient to operative suite for the above-mentioned procedure. She understood. All questions were ans wered. Risks versus benefits and complications were explained in detail and a consent was signed and was placed in the chart. Description Of Procedure: Patient was transferred from the preoperative holding area to the operativ e suite by Department of Anesthesia, placed on the operating room table supine, sedated and intubated in normal fashion. The patient's neck was placed into extension. The 2-incision approach was mistii janusz. The areas of the submentum directly over the hyoid bone were marked with surgical marker and I infiltrated approximately 10 mL of 1% lidocaine with 1:100,000 epinephrine at these two incision site s. Patient was then sterilely prepped and draped. A 3-cm incision was made just inferior to the center mandible at the submental level. Dissection was performed with monopolar needlepoint electrocautery, DeBakey forceps and hemostats down to the subme ntum area. The tissue was elevated with a periosteal elevator. The locking screws were inserted wit h a drill and these screws contained the passing threads for the permanent hyoid threads. Next, our incision was placed directly over the hyoid bone. This incision was approximately 3 to 4 cm in lengt h and this was done with a 15 blade scalpel down to the subcutaneous tissue and then I switched upon monopolar electrocautery all the way down to the hyoid bone to dissect to the hyoid bone. It was sig nificantly posterior to the thyroid cartilage but I was able to lift the hyoid bone with a cricoid ho ok on the inferior border centrally. I used a suture passer provided by the [employer] device sales representative a nd this was passed up against the cricoid hook on the inferior border and then hooked around the hyoi d bone. Two permanent sutures were then passed through this device and then I was able to secure the threads with hinge knots. I then tunneled the permanent threads at the subplatysmal level from infe rior to superior to the submentum incision, and then these threads were then passed through the locki ng screw threads. Once I was able to secure the permanent threads to the locking screws, one on each side, I then released the patient's neck extension and then we suspended approximately 20 mm for bot h threads and then these were locked into place with a screwdriver. Knots were placed and then the t ails were cut. The wound cavities were irrigated with clindamycin 900 mg and saline, and then all ar eas were checked for hemostasis and hemostasis was achieved. Platysma and subcutaneous tissue were r eapproximated with 3-0 Vicryl in a simple interrupted fashion. I then reapproximated the dermal laye r and epidermal layer with 4-0 Monocryl in a simple interrupted and subcuticular fashion. A face-lif t compressive dressing was then placed. Patient tolerated the procedure well. She will be discharge d home on antibiotic and analgesic medication and will follow up in 1 week or sooner, if needed. OSTIO/DENISSE Voice ID: [id number] Report ID: [id number]
== END 2024-04-27 13:50 | disposition home or self-care (01) ==
LOC: OR 07:51
PROVIDERS: ATTEND Otolaryngology Facial Plastic Surgery
PROC: 0CJY8ZZ Inspection of Mouth and Throat, Via Natural or Artificial Opening Endoscopic (ICD-10-PCS; principal; 2024-04-27 09:00)
DX: G47.33 Obstructive sleep apnea (adult) (pediatric) (principal)
CPT/HCPCS: 42975; 93005 ×2; 85025; 80048; 36415; A4216 ×2; J2704 ×2; J2710; J2001; J2250; J3010; J1100; J2405; J7120 ×2

== ENCOUNTER 2024-05-25 13:13 | Inpatient (IN) | payer BC ==
[2024-05-25] MEDS ORDERED: NA CHLORIDE 0.9% 1,000 ML ONE (13:30)
[2024-05-25] MEDS ORDERED: ONDANSETRON 4 MG/2 ML VIAL ONE (13:30)
[2024-05-25] MEDS ORDERED: FAMOTIDINE 20 MG/2 ML VIAL IV ONE (13:32)
[2024-05-25 13:53] LABS: Absolute Basophils 0.1 K/uL (0-0.5); Absolute Eosinophils 0.2 K/uL (0-0.5); Absolute Lymphocytes (CBC) 1.2 K/uL (0.7-4.9); Absolute Monocytes 0.5 K/uL (0.1-1.3); Absolute Neutrophil 9.4 K/uL (1.8-8.0); Basophils % 0.6 % (0-1.3); Eosinophils % 1.8 % (0-4.4); Hematocrit 43.9 % (36.0-45.0); Hemoglobin 14.3 g/dL (12.0-15.0); Lymphocytes % 10.2 % (15.3-44.8); MCH 30.1 pg (27.0-35.0); MCHC 32.5 g/dL (32.0-36.0); MCV 92.5 fL (80-100); MPV 9.9 fL (7.6-11.3); Monocytes % 4.8 % (3.3-12.3); Neutrophils % 82.6 % (41.7-73.7); Platelets 246 thou/uL (152-406); RBC Red Blood Cell Count 4.74 M/uL (3.86-4.86); Red Cell Distribution Width 13.6 % (12.1-15.2)
[2024-05-25] MEDS ORDERED: METOCLOPRAMIDE 10 MG/2mL INJ ONE (13:53)
[2024-05-25 14:10] LABS: Albumin 4.1 g/dL (3.4-5.0); Anion Gap 12.8 mEq/L (5.0-15.0); Bilirubin Total 0.6 mg/dL (0.2-1.0); Globulin 4.3 g/dL (2.3-3.5); Potassium 3.8 mEq/L (3.5-5.1); Protein, Total 8.4 g/dL (6.4-8.2)
--- NOTE | 2024-05-25 15:05 | RAD REPORT ---
EXAM DESCRIPTION: CT - Abdomen Pelvis Wo Contrast - 05/25/2024 2:30 pm CLINICAL HISTORY: Abdominal pain vomiting COMPARISON: None TECHNIQUE: Computed axial tomography of the abdomen and pelvis was obtained. IV and oral contrast we re not requested. All CT scans are performed using dose optimization technique as appropriate and may include automated exposure control or mA/KV adjustment according to patient size. FINDINGS: The evaluation of solid organs, vessels and bowel is limited secondary to the lack of con trast administration. The liver, spleen, pancreas, adrenals and right kidney appear grossly normal. Mild cortical thinning left kidney may be secondary to prior inflammation An abnormal appendix is not visualized. . There is no evidence of diverticulitis. No adnexal mass seen Small umbilical hernia Small bowel caliber and wall thickness appears normal Spondylosis lumbar spine results in spinal stenosis IMPRESSION: No acute abnormality is displayed.
--- NOTE | 2024-05-25 15:09 | EDPHYS ---
Physician Documentation [facility] Name: Angelica Daily Age: 63 yrs Sex: Female : 1960 Arrival Date: 05/25/2024 Time: 13:13 Bed 7 Private MD: ED Physician Guero Askew HPI: 05/25 14:19 This 63 yrs old Female presents to ER via Wheelchair with complaints of Vomiting. kb 14:21 Pt is a 63 year old female who presents for nausea and vomiting that started on kb Wednesday. States the vomiting has lasted 4-6 hours every day since then. States she felt ok this morning so she went to work, but started vomiting again around 1030 and hasn't stopped since. Pt denies fever, abd pain, diarrhea. . Historical: - Allergies: 13:21 DARRYL INHIBITORS; ll1 13:21 Codeine; ll1 13:21 Corlanor; ll1 13:21 HIgh tolerance to PO Benadryl; ll1 13:21 Hydrocodone-Acetaminophen; ll1 13:21 Lisinopril; ll1 13:21 Metoprolol Tartrate; ll1 13:21 Multi foods and inhalants; ll1 13:21 Oxycodone; ll1 13:21 Percocet; ll1 13:21 Phenergan; ll1 13:21 Sulfa (Sulfonamide Antibiotics); ll1 13:21 Vicodin; ll1 - PMHx: 13:21 Crohn's; Hypothyroidism; Migraines; ankylosing spondylitis arthritis; Asthma; adhd; ll1 Depression; Hypertension; Rheumatoid Arthritis; - PSHx: 13:21 hip; knee; neck; ll1 - Immunization history:: Adult Immunizations up to date. - Infectious Disease History:: Denies. - Social history:: Smoking status: Patient denies any tobacco usage or history of. ROS: 13:32 Constitutional: As per HPI kb Exam: 13:32 Constitutional: This is a well developed, well nourished patient who is awake, alert, kb and in no acute distress. Head/Face: Normocephalic, atraumatic. ENT: Moist Mucous membranes Cardiovascular: Regular rate Respiratory: Respirations even and unlabored. No increased work of breathing. Talking in full sentences Abdomen/GI: Soft, non-tender. No distention Skin: Warm, dry with normal turgor. Normal color. MS/ Extremity: Pulses equal, no cyanosis. Neurovascular intact. Full, normal range of motion. Neuro: Awake and alert, GCS 15, oriented to person, place, time, and situation. Moves all extremities. Normal gait. Vital Signs: 13:22 BP 144 / 70; Pulse 80; Resp 18; Temp 97.5; Pulse Ox 95% on R/A; Weight 72.12 kg; Height ll1 5 ft. 3 in. ; Pain 4/10; 14:35 BP 108 / 89; Pulse 76; Resp 18; Pulse Ox 96% on R/A; ph 16:00 BP 129 / 74; Pulse 92; Resp 18; Pulse Ox 95% on R/A; ph 13:22 Body Mass Index 28.17 (72.12 kg, 160.02 cm) ll1 13:22 Pain Scale: Adult ll1 MDM: 13:17 Patient medically screened. cleve 14:21 Differential diagnosis: viral gastroenteritis, crohn's disease, intractable nausea and kb vomiting. dehydration, abnormal electrolytes. Data reviewed: vital signs, nurses notes. Consideration of Admission/Observation Patient was admitted/placed on observation. Escalation of care including admission/observation considered. Counseling: I had a detailed discussion with the patient and/or guardian regarding the historical points, exam findings, and any diagnostic results supporting the discharge/admit diagnosis, lab results, radiology results, the need for further work-up and treatment in the hospital. 14:37 Management of patient was discussed with the following: Primary Care Provider: Dr cleve Brown. He is not available for admitting, will admit to hospitalist. 15:07 Management of patient was discussed with the following: Hospitalist: Hospitalist team, cleve pt accepted for admission under Dr Szymanski. . 05/25 13:27 Order name: CBC with Diff; Complete Time: 13:59 05/25 13:27 Order name: CMP; Complete Time: 14:12 05/25 13:27 Order name: Lipase; Complete Time: 14:12 05/25 13:27 Order name: Urinalysis w/ reflexes 05/25 16:16 Order name: T4 Free [facility] 05/25 16:16 Order name: Thyroid Stimulating Hormone EDNJ 05/25 16:16 Order name: Basic Metabolic Panel EDNJ 05/25 16:16 Order name: Basic Metabolic Panel EDMS 05/25 16:16 Order name: Basic Metabolic Panel EDMS 05/25 16:16 Order name: Basic Metabolic Panel EDMS 05/25 16:16 Order name: Basic Metabolic Panel EDMS 05/25 16:16 Order name: Basic Metabolic Panel EDMS 05/25 16:16 Order name: CBC with Automated Diff EDMS 05/25 16:16 Order name: CBC with Automated Diff EDMS 05/25 16:16 Order name: CBC with Automated Diff EDMS 05/25 16:16 Order name: CBC with Automated Diff EDMS 05/25 16:16 Order name: CBC with Automated Diff EDMS 05/25 16:16 Order name: CBC with Automated Diff EDMS 05/25 16:16 Order name: Lipid Profile EDMS 05/25 16:16 Order name: Lipid Profile EDMS 05/25 16:16 Order name: Magnesium EDMS 05/25 16:16 Order name: Magnesium EDMS 05/25 16:16 Order name: Magnesium EDMS 05/25 16:16 Order name: Magnesium EDMS 05/25 16:16 Order name: Magnesium EDMS 05/25 16:16 Order name: Magnesium EDMS 05/25 16:16 Order name: Phosphorus EDMS 05/25 16:16 Order name: Phosphorus EDMS 05/25 16:16 Order name: Phosphorus EDMS 05/25 16:16 Order name: Phosphorus EDMS 05/25 16:16 Order name: Phosphorus EDMS 05/25 16:16 Order name: Phosphorus EDMS 05/25 16:16 Order name: Troponin High Sensitivity EDMS 05/25 16:16 Order name: Troponin High Sensitivity EDMS 05/25 16:17 Order name: Troponin High Sensitivity EDMS 05/25 16:17 Order name: Troponin High Sensitivity EDMS 05/25 14:20 Order name: CT Abd/Pelvis - Without Contrast; Complete Time: 15:06 kb 05/25 16:16 Order name: EKG Electrocardiogram EDMS 05/25 13:27 Order name: IV Saline Lock; Complete Time: 13:50 kb 05/25 13:27 Order name: Labs collected and sent; Complete Time: 13:50 kb Administered Medications: 13:35 Drug: NS 0.9% IV 1000 ml IV at 1 bolus Per protocol; 1000 mL bolus Route: IV; Rate: 1 kc6 bolus; Site: right antecubital; 16:01 Follow up: Response: No adverse reaction; IV Status: Completed infusion; IV Intake: ph 1000ml 13:35 Drug: Famotidine IVP 20 mg IVP once; dilute with 10 mL 0.9% NaCl; give over 2 minutes kc6 Route: IVP; Site: right antecubital; 16:01 Follow up: Response: No adverse reaction ph 13:35 Drug: Ondansetron IVP 4 mg IVP once; over 2 minutes Route: IVP; Site: right antecubital;kc6 16:00 Follow up: Response: No adverse reaction ph 14:03 Drug: metoCLOPramide IVP 10 mg IVP once; over 1 to 2 minutes Route: IVP; Site: right kc6 antecubital; 16:01 Follow up: Response: No adverse reaction ph Disposition: 17:46 Co-signature as Attending Physician, Guero Askew MD I reviewed the patient's care rn provided by the Advanced Practice Provider and agree with the diagnosis and treatment plan. Disposition Summary: 05/25/24 15:09 Hospitalization Ordered Notes: Hospitalization Status: Observation kb Provider: Emerson Szymanski Location: Telemetry/MedSur (observation) kb Condition: Stable kb Problem: new kb Symptoms: are unchanged kb Bed/Room Type: Standard Room Assignment: 204(05/25/24 16:26) em1 Diagnosis - Nausea with vomiting, unspecified kb - Acute kidney failure, unspecified kb Forms: - Medication Reconciliation Form kb - SBAR form kb - Leadership Thank You Letter kb Signatures: Dispatcher [employer] EDMS Paris Gomez, TOOL ENGINEER-C TOOL ENGINEER-Ckb Guero Askew MD MD rn Martinez, Eric em1 Veronica Lynn RN RN ph Senthil Byrd RN RN ll1 Sayda Jack RN RN kc6 Corrections: (The following items were deleted from the chart) 13:28 13:28 CBC+H.LAB.BRZ ordered. EDMS EDMS 13:28 13:28 COMPREHENSIVE METABOLIC PANEL+C.LAB.BRZ ordered. EDMS EDMS 13:28 13:28 LIPASE+C.LAB.BRZ ordered. EDMS EDMS 13:28 13:28 Urinalysis+U.LAB.BRZ ordered. EDMS EDMS 16:26 15:09 kb em1
--- NOTE | 2024-05-25 15:09 | ER ---
Nurse's Notes [facility] Name: Angelica Daily Age: 63 yrs Sex: Female : 1960 Arrival Date: 05/25/2024 Time: 13:13 Bed 7 Private MD: Diagnosis: Nausea with vomiting, unspecified;Acute kidney failure, unspecified Presentation: 05/25 13:19 Chief complaint: Patient states: Started vomiting since Wednesday. Coronavirus screen: ll1 Client denies travel out of the [place] in the last 14 days. fatigue, nausea, vomiting. Client presents with at least one sign or symptom that may indicate coronavirus-19. Standard/surgical mask placed on the client. Ebola Screen: Patient denies travel to an Ebola-affected area in the 21 days before illness onset. Initial Sepsis Screen: Does the patient meet any 2 criteria? No. Patient's initial sepsis screen is negative. Does the patient have a suspected source of infection? No. Patient's initial sepsis screen is negative. Risk Assessment: Do you want to hurt yourself or someone else? Patient reports no desire to harm self or others. Onset of symptoms was May 20, 2024. 13:19 Method Of Arrival: Wheelchair ll1 13:19 Acuity: ILIR 3 ll1 Triage Assessment: 13:22 General: Appears distressed, uncomfortable, Behavior is cooperative, appropriate for ll1 age, vomiting. Pain: Denies pain. GI: Reports cramping, nausea, vomiting. Historical: - Allergies: 13:21 DARRYL INHIBITORS; ll1 13:21 Codeine; ll1 13:21 Corlanor; ll1 13:21 HIgh tolerance to PO Benadryl; ll1 13:21 Hydrocodone-Acetaminophen; ll1 13:21 Lisinopril; ll1 13:21 Metoprolol Tartrate; ll1 13:21 Multi foods and inhalants; ll1 13:21 Oxycodone; ll1 13:21 Percocet; ll1 13:21 Phenergan; ll1 13:21 Sulfa (Sulfonamide Antibiotics); ll1 13:21 Vicodin; ll1 - PMHx: 13:21 Crohn's; Hypothyroidism; Migraines; ankylosing spondylitis arthritis; Asthma; adhd; ll1 Depression; Hypertension; Rheumatoid Arthritis; - PSHx: 13:21 hip; knee; neck; ll1 - Immunization history:: Adult Immunizations up to date. - Infectious Disease History:: Denies. - Social history:: Smoking status: Patient denies any tobacco usage or history of. Screenin:36 [facility] ED Fall Risk Assessment (Adult) History of falling in the last 3 months, ph including since admission No falls in past 3 months (0 pts) Confusion or Disorientation No (0 pts) Intoxicated or Sedated No (0 pts) Impaired Gait No (0 pts) Mobility Assist Device Used No (0 pt) Altered Elimination No (0 pt) Score/Fall Risk Level 0 - 2 = Low Risk Oriented to surroundings, Maintained a safe environment, Hourly rounding (assess needs \T\ fall precautionary measures) done. Abuse screen: Denies threats or abuse. Denies injuries from another. Nutritional screening: No deficits noted. Tuberculosis screening: No symptoms or risk factors identified. Assessment: 14:37 General: Appears in no apparent distress. Behavior is calm, cooperative. Pain: Denies ph pain. Neuro: Level of Consciousness is awake, alert, obeys commands, Oriented to person, place, time, situation. Cardiovascular: Capillary refill < 3 seconds in bilateral fingers Patient's skin is warm and dry. GI: Abdomen is non-distended, Reports nausea, vomiting, Patient currently denies abdominal pain, diarrhea. Derm: Skin is pink, warm \T\ dry. 16:00 Reassessment: Patient appears in no apparent distress at this time. Patient and/or ph family updated on plan of care and expected duration. Pain level reassessed. Patient is alert, oriented x 3, equal unlabored respirations, skin warm/dry/pink. Vital Signs: 13:22 BP 144 / 70; Pulse 80; Resp 18; Temp 97.5; Pulse Ox 95% on R/A; Weight 72.12 kg; Height ll1 5 ft. 3 in. ; Pain 4/10; 14:35 BP 108 / 89; Pulse 76; Resp 18; Pulse Ox 96% on R/A; ph 16:00 BP 129 / 74; Pulse 92; Resp 18; Pulse Ox 95% on R/A; ph 13:22 Body Mass Index 28.17 (72.12 kg, 160.02 cm) ll1 13:22 Pain Scale: Adult ll1 ED Course: 13:14 Patient arrived in ED. 13:17 Paris Gomez, [facility]. kb 13:17 Guero Askew MD is Attending Physician. kb 13:20 Triage completed. ll1 13:22 Arm band placed on. ll1 13:27 Veronica Lynn, RN is Primary Nurse. ph 13:28 Patient placed in an exam room, on a stretcher. aa5 13:28 Warm blanket given. aa5 13:35 Inserted saline lock: 20 gauge in right antecubital area, using aseptic technique. kc6 Blood collected. Flushed with 10 mL NS. 14:31 CT Abd/Pelvis - Without Contrast In Process Unspecified. EDMS 14:36 Patient has correct armband on for positive identification. Bed in low position. Call ph light in reach. Side rails up X 1. Pulse ox on. NIBP on. 15:08 Emerson Szymanski is Hospitalizing Provider. kb 15:15 No provider procedures requiring assistance completed. Patient admitted, IV remains in ph place. Administered Medications: 13:35 Drug: NS 0.9% IV 1000 ml IV at 1 bolus Per protocol; 1000 mL bolus Route: IV; Rate: 1 kc6 bolus; Site: right antecubital; 16:01 Follow up: Response: No adverse reaction; IV Status: Completed infusion; IV Intake: ph 1000ml 13:35 Drug: Famotidine IVP 20 mg IVP once; dilute with 10 mL 0.9% NaCl; give over 2 minutes kc6 Route: IVP; Site: right antecubital; 16:01 Follow up: Response: No adverse reaction ph 13:35 Drug: Ondansetron IVP 4 mg IVP once; over 2 minutes Route: IVP; Site: right antecubital;kc6 16:00 Follow up: Response: No adverse reaction ph 14:03 Drug: metoCLOPramide IVP 10 mg IVP once; over 1 to 2 minutes Route: IVP; Site: right kc6 antecubital; 16:01 Follow up: Response: No adverse reaction ph Medication: 14:36 VIS not applicable for this client. ph Intake: 16:01 IV: 1000ml; Total: 1000ml. ph Outcome: 15:09 Decision to Hospitalize by Provider. kb 17:14 Patient left the ED. ph 17:14 Admitted to Med/surg accompanied by nurse, via wheelchair, with chart, ph 17:14 Condition: good 17:14 Instructed on the need for admit, Signatures: Dispatcher [employer] Paris Nelson, EXTRUDING PRESS OPERATOR-C EXTRUDING PRESS OPERATOR-Kinga Mederos, Reg Reg mr Bo, Ade, RN RN aa5 Veronica Lynn RN RN ph Carson, Senthil, RN RN ll1 Sayda Jack RN RN kc6
--- NOTE | 2024-05-25 15:51 | P.HP ---
Certification for Inpatient Patient admitted to: Observation With expected LOS: <2 Midnights Practitioner: I am a practitioner with admitting privileges, knowledge of patient current condition, hospital course, and medical plan of care. Services: Services provided to patient in accordance with Admission requirements found in Title 42 Section 412.3 of the Code of Federal Regulations Patient History Date of Service: 05/25/24 Reason for admission: intractable nausea and vomitting History of Present Illness: Angelica Daily is a 63 year old female with Pmhx Crohn's disease, hypothyroidism, migraines, ankylosing spondylitis, arthritis, asthma, ADHD, depression, hypertension, rheumatoid arthritis, who presents to the ED with chief complaint of intractable nausea vomiting that started on Wednesday. She felt better this morning and came to work but by 1029 started vomiting again and has not stopped. She denies fever or abdominal pain and diarrhea. Initial vitals BP 144 / 70; Pulse 80; Resp 18; Temp 97.5; Pulse Ox 95% on R/A; Laboratory evaluation WBC 11.4, neutrophils 82.6, BUN/creatinine 19/1.8, GFR 31, serum glucose 157, lipase 33, UA negative for infectious process but hyaline cast present. CT abdomen pelvis reports no acute abnormality is displayed, small umbilical hernia,, mild cortical thinning left kidney may be secondary to prior inflammation, spondylosis lumbar spine results in spinal stenosis. Angelica will be admitted to hospitalist service for further treatment of intractable nausea and vomiting Allergies hydrocodone Allergy (Verified 04/25/24 13:04) Rash metoprolol Allergy (Verified 04/25/24 13:04) Nausea/Vomiting oxycodone Allergy (Verified 04/25/24 13:04) Hives ragweed pollen Allergy (Verified 04/25/24 13:04) Shortness of breath Sulfa (Sulfonamide Antibiotics) Allergy (Verified 04/25/24 13:04) Hives/Rash DARRYL Inhibitors Adverse Reaction (Verified 04/25/24 13:04) Shortness of breath codeine Adverse Reaction (Verified 04/25/24 13:04) Nausea/Vomiting duloxetine [From Cymbalta] Adverse Reaction (Verified 04/25/24 13:04) Altered mental status ivabradine [From Corlanor] Adverse Reaction (Verified 04/25/24 13:04) Cognitive suppression lisinopril Adverse Reaction (Verified 04/25/24 13:04) Cognitive suppression promethazine [From Phenergan] Adverse Reaction (Verified 04/25/24 13:04) visual hallucinations Home Medications: Dextroamphetamine Sulfate [Zenzedi] 5 mg PO DAILY 10/02/16 Dextroamphetamine Sulfate [Zenzedi] 10 mg PO BID 10/02/16 Divalproex ER [Depakote *ER] 250 mg PO DAILY WITH BREAKFAST 10/02/16 Divalproex [Depakote Sprinkle*] 125 mg PO NOON 10/02/16 Levalbuterol [Xopenex*] 1 puff IH Q6H PRN 10/02/16 Quetiapine [Seroquel*] 25 mg PO DAILY WITH BREAKFAST 10/02/16 Quetiapine [Seroquel*] 100 mg PO BEDTIME 10/02/16 Zafirlukast [Accolate*] 20 mg PO BID 10/02/16 Albuterol Sulfate [Proventil Hfa] 2 puff IH PRN 02/04/19 Diclofenac Sodium [Voltaren] 1 luís TOP QID 02/04/19 Irbesartan [Avapro] 300 mg PO DAILY 02/04/19 Rosuvastatin [Crestor*] 40 mg PO BEDTIME 02/04/19 Vilazodone HCl [Viibryd] 20 mg PO DAILY 02/04/19 Aspirin [Ecotrin 81 MG] 81 mg PO DAILY #30 tab 09/17/23 Leflunomide 20 mg PO BEDTIME 09/17/23 Levothyroxine [Synthroid*] 0.1 mcg PO BEDTIME 09/17/23 dilTIAZem HCL [Diltiazem HCl] 240 mg PO DAILY 09/17/23 Isosorbide Mononitrate [Isosorbide Mononitrate ER] 1 tab PO DAILY 04/25/24 - Past Medical/Surgical History Diabetic: No -: HTN -: tachycardia -: RA -: Asthma -: Ankylosing sondylitis arthritis -: ADHD -: depression -: migraines -: crohns -: sinus sx -: neck sx -: left arm sx - Family History Father -: Heart disease, Hypertension Mother -: Stroke - Social History Alcohol use: Yes CD- Drugs: No Caffeine use: Yes Review of Systems Gastrointestinal: Nausea, Vomiting Physical Examination - Physical Exam General: Alert, In no apparent distress, Oriented x3 HEENT: Atraumatic, Normocephalic, PERRLA Neck: Supple, 2+ carotid pulse no bruit, JVD not distended Respiratory: Clear to auscultation bilaterally, Normal air movement Cardiovascular: Normal pulses, Regular rate/rhythm, Normal S1 S2 Capillary refill: <2 Seconds Gastrointestinal: Normal bowel sounds, Soft and benign, No tenderness Musculoskeletal: No clubbing Integumentary: No rashes Neurological: Normal speech, Normal tone - Studies Laboratory Data (last 24 hrs) 05/25/24 05/25/24 13:39 13:39 WBC 11.40 H Hgb 14.3 Hct 43.9 Plt Count 246 Sodium 142 Potassium 3.8 BUN 19 H Creatinine 1.80 H Glucose 157 H Total Bilirubin 0.6 AST 22 ALT 23 Alkaline Phosphatase 113 Lipase 33 Assessment and Plan - Plan Assessment and plan Intractable nausea vomiting History of Crohn's mild leukocytosis -WBC 11.4, neutrophils 82.6, UA neg for infectious process, afebrile -Lipase 33, liver enzymes normal -CT abdomen pelvis reports no acute abnormality is displayed, small umbilical hernia, mild cortical thinning left kidney may be secondary to prior i nflammation, spondylosis lumbar spine results in spinal stenosis. -NPO, advance diet as tolerated -gentle IVF -vit B12/D/ valporic acid levels pending -EKG, trend troponin -Reglan -Gentle IV fluid Hyperglycemia -Serum glucose 157 -Monitor in a.m. labs VANESA likely due to hide dehydration -BUN/Creatinine 19/1.8, GFR 31 -gentle IVF - UA with hyaline cast present History of PR -continuous telemetry -trend troponin History of hypertension History of hypothyroid History of asthma History of depression History of ADHD History of migraines History of ankylosing spondylitis History of Rheumatoid arthritis -Continue home medication -CT abd/pelvis reports "spondylosis lumbar spine results in spinal stenosis." Small umbilical hernia -Incidental finding on CT abdomen pelvis -Follow-up outpatient DVT PPx heparin Full code, son is MPOA LOS 2 days Discharge Plan: Home Plan to discharge in: 48 Hours - Advance Directives Does patient have a Living Will: Yes Does patient have a Durable POA for Healthcare: Yes
[2024-05-25] MEDS ORDERED: ACETAMINOPHEN 500 MG TAB PO PRN (16:06)
[2024-05-25 17:16] LABS: Specific Gravity 1.015 (1.005-1.030); Sqamous Epithelial <5 /HPF (None Seen); Urine Bacteria <20 /HPF (<20); Urine Bilirubin NEGATIVE (Negative); Urine Blood Negative (Negative); Urine Clarity Turbid (Clear); Urine Color Light-Yellow (Yellow); Urine Culture Reflex Order NOT NEEDED; Urine Glucose NEGATIVE (Negative); Urine Ketones 1+ (Negative); Urine Microscopic Reflex YN ORDER UMIC; Urine Mucus Slight /HPF (None Seen); Urine Nitrite NEGATIVE (Negative); Urine Protein NEGATIVE (Negative); Urine RBC <5 /HPF (None Seen); Urine Urobilinogen Normal (Normal); Urine WBC <5 /HPF (<5); Urine pH 5.5 (5.0-7.0)
[2024-05-25] MEDS: NA CHLORIDE 0.9% 1,000 ML IV SCH (18:35)
[2024-05-25] MEDS: HEPARIN 5000 UNIT/ML 1 ML VIAL SQ SCH (18:35)
[2024-05-25] MEDS ORDERED: METOCLOPRAMIDE 10 MG/2mL INJ IV PRN (19:00)
[2024-05-25 19:12] LABS: Valproic Acid (Depakene) Level 18.6 mcg/mL (50.0-100.0)
[2024-05-25 19:16] LABS: Thyroid Stimulating Hormone 0.65 uIU/mL (0.358-3.740)
[2024-05-25 20:47] VITALS: BMI 28.4
[2024-05-25] MEDS: QUETIAPINE 100MG TAB ONE (22:03)
[2024-05-25] MEDS: QUETIAPINE 100MG TAB PO SCH (22:07)
[2024-05-25 23:14] VITALS: O2SAT 96
[2024-05-26 07:55] LABS: Absolute Eosinophils 0.4 K/uL (0-0.5); Absolute Lymphocytes (CBC) 1.8 K/uL (0.7-4.9); Absolute Monocytes 0.5 K/uL (0.1-1.3); Absolute Neutrophil 3.3 K/uL (1.8-8.0); Basophils % 0.7 % (0-1.3); Eosinophils % 5.9 % (0-4.4); Hematocrit 38.3 % (36.0-45.0); Hemoglobin 12.2 g/dL (12.0-15.0); Lymphocytes % 30.2 % (15.3-44.8); MCHC 31.9 g/dL (32.0-36.0); MCV 93.9 fL (80-100); MPV 10.1 fL (7.6-11.3); Monocytes % 8.5 % (3.3-12.3); Neutrophils % 54.7 % (41.7-73.7); Platelets 191 thou/uL (152-406); RBC Red Blood Cell Count 4.09 M/uL (3.86-4.86); Red Cell Distribution Width 13.7 % (12.1-15.2)
[2024-05-26 08:47] LABS: Potassium 3.6 mEq/L (3.5-5.1)
[2024-05-26 08:48] LABS: Phosphorus 3.4 mg/dL (2.5-4.9)
[2024-05-26 08:49] LABS: Anion Gap 8.6 mEq/L (5.0-15.0); Magnesium 1.9
[2024-05-26] MEDS: ZAFIRLUKAST 20 MG PO SCH (09:00)
[2024-05-26] MEDS: VALSARTAN 160 MG TAB PO SCH (09:00)
[2024-05-26] MEDS ORDERED: ZAFIRLUKAST 20 MG TAB PO SCH (09:00)
[2024-05-26] MEDS: ASPIRIN EC 81 MG TAB PO SCH (09:39)
[2024-05-26] MEDS: QUETIAPINE 25 MG TAB PO SCH (09:39)
[2024-05-26] MEDS: DILTIAZEM HCL 120 MG SR CAP PO SCH (09:39)
[2024-05-26] MEDS: ISOSORBIDE MONO SR 30 MG TAB PO SCH (09:40)
[2024-05-26] MEDS: DIVALPROEX ER 250 MG TAB PO SCH (09:40)
[2024-05-26] MEDS: POTASSIUM CL SA 10 MEQ TAB PO ONE (09:40)
[2024-05-26] MEDS: DIVALPROEX NA 125 MG CAP PO SCH (12:09)
--- NOTE | 2024-05-26 16:01 | P.PN ---
Date of Service: 05/26/24 Subjective Feeling better Advance diet to CLD and FLD, no nausea or vomiting No new complaints ROS 10 point ROS as noted above, otherwise negative Physical Exam General: Alert and Oriented x3, NAD HEENT: Atraumatic, Normocephalic, PERRLA Neck: Supple, 2+ carotid pulse no bruit, JVD not distended Respiratory: Clear to auscultation bilaterally, Normal air movement Cardiovascular: Normal pulses, RRR, Normal S1 S2 Capillary refill: <2 Seconds Gastrointestinal: Normal bowel sounds, Soft and benign on palpation, ND NT Musculoskeletal: No clubbing Integumentary: No rashes Neurological: Normal speech, Normal tone Vitals Reviewed Problem list Intractable nausea vomiting History of Crohn's mild leukocytosis Hyperglycemia VANESA likely due to hide dehydration History of VA History of hypertension History of hypothyroid History of asthma History of depression History of ADHD History of migraines History of ankylosing spondylitis History of Rheumatoid arthritis Assessment and Plan Intractable nausea vomiting History of Crohn's mild leukocytosis -WBC 11.4, neutrophils 82.6, UA neg for infectious process, afebrile -Lipase 33, liver enzymes normal -CT abdomen pelvis reports no acute abnormality is displayed, small umbilical hernia, mild cortical thinning left kidney may be secondary to prior inflammation, spondylosis lumbar spine results in spinal stenosis. -FLD, NPO at midnight -gentle IVF -vit B12 944, D 59.7, valporic acid 18.6 -TSH/Free T4 0.650/1.08 -EKG negative -Troponin 5.7/6.6/5.5 -Reglan -Continue gentle IV fluid -Consulted Dr. Silver -[place] Gastric emptying study -MRI brain with contrast Hyperglycemia -Serum glucose 86 -Monitor in a.m. labs VANESA likely due to hide dehydration -BUN/Creatinine 18/1.12, GFR 55 -Continue gentle IVF - UA with hyaline cast present History of VA -continuous telemetry -Troponin 5.7/6.6/5.5 History of hypertension History of hypothyroid History of asthma History of depression History of ADHD History of migraines History of ankylosing spondylitis History of Rheumatoid arthritis -Continue home medication -CT abd/pelvis reports "spondylosis lumbar spine results in spinal stenosis." Small umbilical hernia -Incidental finding on CT abdomen pelvis -Follow-up outpatient DVT PPx heparin Full code, son is MPOA LOS 2 days <Trish Verdin - Last Filed: 05/26/24 15:44> Patient seen and examined with Lambert. No nausea or vomiting today. Patient is tolerating liquid diet. Abdomen: Non-tender, reduced BS. Intractable Nausea and Vomiting. Unknown etiology. CT abdomen and pelvis is negative GI Dr. Silver seen and evaluated patient. Gastric emptying study recommended Patient with a prior history of TIA after surgery. Patient had a recent surgery and needs rule out acute CVA. MRI of the brain ordered. Full liquid diet as tolerated. N.p.o. at bedtime for gastric emptying study tomorrow. <roxann jennings - Last Filed: 05/26/24 18:10>
--- NOTE | 2024-05-26 17:07 | RAD REPORT ---
EXAM DESCRIPTION: MRI - Brain W/Wo Cont - 05/26/2024 4:49 pm CLINICAL HISTORY: possible recurrent TIAs with unexplained N/V, h/o COMPARISON: Brain W/Wo Cont dated 04/16/2023 TECHNIQUE: Multi-sequence, multiplanar MR imaging of the brain was performed with contrast. FINDINGS: No intracranial hemorrhage, hydrocephalus, or extra-axial fluid collection. No edema or sh ift of midline structures. No intracranial mass. DWI is negative for acute CVA. The midline structures are normally formed. Mastoid air cells and paranasal sinuses are clear. Post-contrast images show no abnormal enhancement to suggest tumor or infection. IMPRESSION: No acute or concerning intracranial abnormalities. No pathologic post-contrast enhancement suspected.
[2024-05-26] MEDS: LEVOTHYROXINE SOD 0.1 MG TAB PO SCH (20:24)
[2024-05-26] MEDS: ROSUVASTATIN 10 MG TAB PO SCH (20:24)
[2024-05-26] MEDS: HOME MED 1 EA UNK (Leflunomide [Leflunomide] 20 MG Tablet) PO SCH (20:30)
[2024-05-26] MEDS ORDERED: QUETIAPINE 100MG TAB PO SCH ×2 (21:00)
--- NOTE | 2024-05-26 21:51 | CON ---
Date of Consultation: 05/26/2024 Reason For Consultation: Idiopathic nausea, vomiting, recurrent. History Of Present Illness: This patient is a 63-year-old white female with history of hypertension, asthma, arthritis, rheumatoid arthritis, depression, ankylosing spondylitis, Crohn disease, hypothyr oidism, migraine headaches, TIA after neck surgery in 2019. The patient presented to the [facility] to severe recurrent idiopathic nausea, vomiting. The patient has had recurrent episodes that seem to come out of nowhere over the past few days; it appears the patient has no idea why. The pat franco has had a full workup, EGD, colonoscopy, small bowel series recently over the past ye ar as per verbal report. Of note, the patient had a TIA after neurosurgery 4 years ago, and all the women on her mother side of family have of strokes as well. CT abdomen and pelvis showed no acu te abnormality. Past Medical History: Significant for hypertension, asthma, arthritis, rheumatoid arthritis, depress ion, ankylosing spondylitis, Crohn disease, hypothyroidism, migraine headache, TIA after neck surgery in 2019. Past Surgical History: The patient also had neck surgery, sinus surgery, and left arm surgery. Family History: Father has heart disease and hypertension and mother appears to have of stroke. Social History: No alcohol. Tobacco, positive. She has children as well and it appears. Review of Systems: The patient has nausea, vomiting that is idiopathic, comes and goes, unable to predict when it will o ccur, but it just occurs. She reports no abdominal pain. No fevers, chills, night sweats. No melen a, hematochezia, hematemesis, coffee-ground emesis, hematuria, dysuria, polydipsia, shortness of kami th, seizure, syncope. She does have depression. A little bit of anxiety now with this idiopathic na usea currently with a history of a TIA after neck surgery now, she had recent neck surgery. Family History: Stroke in all her female relatives on mother's side. Physical Examination: Measurements: She is 5 feet 3 inches, 160 pounds, BMI 28.4 kg/sq m. Vital Signs: Temperature 98.4 degrees Fahrenheit, pulse 82, respirations 22, blood pressure 121/60, O2 saturation 92% to 96%. HEENT: Normocephalic, atraumatic. Anicteric. Pupils equal, round, and reactive to light. Extraocu lar movements intact. Oropharynx clear. Neck: Supple. No masses. Respirations: Clear to auscultation bilaterally. Cardiac: Regular rate and rhythm. No gallops or rubs. Gastrointestinal: Positive bowel sounds. Soft, nontender, nondistended. No hepatosplenomegaly. Sl ightly obese in appearance. Extremities: No clubbing, cyanosis, or edema. 2+ pulses. Neurologic: Alert and oriented x3. Grossly nonfocal. 5/5 motor strength. Sensation intact to ligh t touch. Laboratory Data: The patient has a white count of 6.1, down from 11.4 yesterday; hemoglobin of 12.2, hematocrit 38.3, MCV of 94, platelet count of 191. Polys of 54% lymphocytes, and polys yesterday of 83%, lymphocytes 30% today, monocytes 9%, eosinophils 6%. The patient has sodium 144, potassium 3.6 , chloride of 114, bicarb 25, BUN of 18, creatinine of 1.12, glucose 86, calcium 9.1, phosphorus 3.4, magnesium 1.9. Troponin I 5.5, negative and 6.6 and 5.7, all negative. Triglycerides 167, choleste rol 116, LDL of 38, HDL of 45. Vitamin B12 of 944. TSH of 0.65, free T4 of 0.105, vitamin D of 59.7 , lipase 33. UA 10,000 to 20,000 casts, 1+ ketones, otherwise negative. Valproic acid 18.6 __. Radiological Data: CT abdomen and pelvis, no acute abnormalities found; however, the patient did hav e mild cortical thinning of the left kidney, may be secondary to prior inflammation; small umbilical hernia and spondylosis of the lumbar spine results in spinal stenosis. Impression: Idiopathic nausea and vomiting, could be due to neurologic versus gastrointestinal versu s other etiology. The patient has a history of transient ischemic attack after neck surgery 4 years ago and also all the women on the mother's side of family have of stroke in the past including h er mother. CT of the abdomen was largely unremarkable with no acute finding noted. The patient has a history of hypertension, asthma, arthritis, depression, rheumatoid arthritis, and ankylosing spondy litis, Crohn disease, hypothyroid, migraine headaches, transient ischemic attacks. Recommendations: 1.Neurology consultation. 2.MRI of brain. 3.Aspirin daily . 4.Gastric emptying study. 5.Continue p.r.n. Zofran and Phenergan as needed. IV fluids, stroke precautions. Case was discussed with Dr. Szymanski with me for MRI of the brain stat and neurologic consultation. PERCY/DENISSE Voice ID: [id number] Report ID: [id number]
[2024-05-27 07:15] LABS: Absolute Basophils 0.1 K/uL (0-0.5); Absolute Eosinophils 0.4 K/uL (0-0.5); Absolute Lymphocytes (CBC) 1.8 K/uL (0.7-4.9); Absolute Monocytes 0.5 K/uL (0.1-1.3); Absolute Neutrophil 2.3 K/uL (1.8-8.0); Eosinophils % 8.4 % (0-4.4); Hematocrit 37.5 % (36.0-45.0); Hemoglobin 12.3 g/dL (12.0-15.0); Lymphocytes % 36.3 % (15.3-44.8); MCH 30.6 pg (27.0-35.0); MCHC 32.8 g/dL (32.0-36.0); MCV 93.2 fL (80-100); MPV 9.6 fL (7.6-11.3); Monocytes % 9.4 % (3.3-12.3); Neutrophils % 44.9 % (41.7-73.7); Nucleated Red Blood Cells % 0.2 % (0-0); Platelets 197 thou/uL (152-406); RBC Red Blood Cell Count 4.03 M/uL (3.86-4.86); Red Cell Distribution Width 13.6 % (12.1-15.2)
[2024-05-27 07:29] LABS: Magnesium 1.6 mg/dL (1.6-2.4)
[2024-05-27] MEDS: DEXTROAMPHETAMINE SULFATE 5 MG PO SCH (09:50)
[2024-05-27 12:35] VITALS: TEMP 98
[2024-05-27 16:25] VITALS: BP 140/68
--- NOTE | 2024-05-27 17:11 | P.DS ---
Admission Date: 05/25/24 Discharge Date: 05/27/24 Disposition: ROUTINE DISCHARGE Discharge Condition: GOOD Reason for Admission: intractable nausea and vomitting Brief History of Present Illness: Diagnosis Intractable nausea vomiting of unknown etiology History of Crohn's mild leukocytosis Hyperglycemia VANESA likely due to hide dehydration History of NE History of hypertension History of hypothyroid History of asthma History of depression History of ADHD History of migraines History of ankylosing spondylitis History of Rheumatoid arthritis HPI 05/25/24 Angelica Daily is a 63 year old female with Pmhx Crohn's disease, hypothyroidism, migraines, ankylosing spondylitis, arthritis, asthma, ADHD, depression, hypertension, rheumatoid arthritis, who presents to the ED with chief complaint of intractable nausea vomiting that started on Wednesday. She felt better this morning and came to work but by 1029 started vomiting again and has not stopped. She denies fever or abdominal pain and diarrhea. Initial vitals BP 144 / 70; Pulse 80; Resp 18; Temp 97.5; Pulse Ox 95% on R/A Laboratory evaluation WBC 11.4, neutrophils 82.6, BUN/creatinine 19/1.8, GFR 31, serum glucose 157, lipase 33, UA negative for infectious process but hyaline cast present. CT abdomen pelvis reports no acute abnormality is displayed, small umbilical hernia,, mild cortical thinning left kidney may be secondary to prior inflamm ation, spondylosis lumbar spine results in spinal stenosis. Angelcia will be admitted to hospitalist service for further treatment of intractable nausea and vomiting Hospital Course: Angelica is a pleasant with a past medical history significant for Crohn's disease, hypothyroidism, migraines, ankylosing spondylitis, arthritis, asthma, ADHD, depression, hypertension, rheumatoid arthritis who was admitted to the [facility] on 05/25/24 for Intractable nausea and vomiting. Angelica presented to the ED with chief complaint of nausea and vomiting since Sunday 05/20. She reports feeling better on 05/25 and came to work. She reports the vomiting surprises her with first feeling hot then vomiting. She states she does not feel stomach upset prior to vomiting. MRI brain resulted "No acute or concerning intracranial abnormalities." NM Gastric Emptying was completed with results pending. During this admission, she has tolerated IV fluids, CLD, FLD, Gastric emptying study, and regular diet. She denies vomiting since admission. Dr. Silver and Dr. Mcgowan have been consulted for further evaluation to the cause of these episodes. On 05/27/24, Angelica was seen on morning rounds and deemed medically stable for discharge. Angelica was discharged with instructions to schedule follow-up appointments with PCP and Dr. Mcgowan. Oanh was provided prescriptions for z ofran. Physical Exam General: AAOx3, NAD, afebrile HEENT: Atraumatic, Normocephalic, PERRLA Neck: Supple, 2+ carotid pulse no bruit, JVD not distended Respiratory: Clear to auscultation bilaterally, Normal air movement Cardiovascular: Normal pulses, NSR, Normal S1 S2 Capillary refill: <2 Seconds Gastrointestinal: Normoactive bowel sounds, Soft and benign on palpation, nontender Musculoskeletal: No clubbing Integumentary: No rashes Neurological: Normal speech, Normal tone Vital Signs/Physical Exam: Temp Pulse Resp BP Pulse Ox 98.0 F 83 16 140/68 97 05/27/24 16:00 05/27/24 16:00 05/27/24 16:00 05/27/24 16:00 05/27/24 16:00 Laboratory Data at Discharge: WBC 5.00 thou/uL (4.3-10.9) 05/27/24 06:00 Hgb 12.3 g/dL (12.0-15.0) 05/27/24 06:00 Hct 37.5 % (36.0-45.0) 05/27/24 06:00 Plt Count 197 thou/uL (152-406) 05/27/24 06:00 Sodium 141 mEq/L (136-145) 05/27/24 06:00 Potassium 4.0 mEq/L (3.5-5.1) 05/27/24 06:00 BUN 9 mg/dL (7-18) 05/27/24 06:00 Creatinine 0.98 mg/dL (0.55-1.02) 05/27/24 06:00 Glucose 94 mg/dL (74-106) 05/27/24 06:00 Phosphorus 3.0 mg/dL (2.5-4.9) 05/27/24 06:00 Magnesium 1.6 mg/dL (1.6-2.4) 05/27/24 06:00 Total Bilirubin 0.6 mg/dL (0.2-1.0) 05/25/24 13:39 AST 22 U/L (15-37) 05/25/24 13:39 ALT 23 U/L (13-56) 05/25/24 13:39 Alkaline Phosphatase 113 U/L (45-117) 05/25/24 13:39 Triglycerides 167 mg/dL (<150) H 05/26/24 07:07 Cholesterol 116 mg/dL (<200) 05/26/24 07:07 HDL Cholesterol 45 mg/dL (40-60) 05/26/24 07:07 Cholesterol/HDL Ratio 2.58 05/26/24 07:07 Lipase 33 U/L (13-75) 05/25/24 13:39 Home Medications: Dextroamphetamine Sulfate [Zenzedi] 5 mg PO DAILY 10/02/16 Dextroamphetamine Sulfate [Zenzedi] 10 mg PO BID 10/02/16 Divalproex ER [Depakote *ER] 250 mg PO DAILY WITH BREAKFAST 10/02/16 Divalproex [Depakote Sprinkle*] 125 mg PO NOON 10/02/16 Levalbuterol [Xopenex*] 1 puff IH Q6H PRN 10/02/16 Quetiapine [Seroquel*] 25 mg PO DAILY WITH BREAKFAST 10/02/16 Quetiapine [Seroquel*] 100 mg PO BEDTIME 10/02/16 Zafirlukast [Accolate*] 20 mg PO BID 10/02/16 Albuterol Sulfate [Proventil Hfa] 2 puff IH PRN 02/04/19 Diclofenac Sodium [Voltaren] 1 luís TOP QID 02/04/19 Irbesartan [Avapro] 300 mg PO DAILY 02/04/19 Rosuvastatin [Crestor*] 40 mg PO BEDTIME 02/04/19 Aspirin [Ecotrin 81 MG] 81 mg PO DAILY #30 tab 09/17/23 Leflunomide 20 mg PO BEDTIME 09/17/23 Levothyroxine [Synthroid*] 0.1 mcg PO BEDTIME 09/17/23 dilTIAZem HCL [Diltiazem HCl] 240 mg PO DAILY 09/17/23 Isosorbide Mononitrate [Isosorbide Mononitrate ER] 1 tab PO DAILY 04/25/24 Ondansetron [Zofran] 4 mg PO Q8H PRN 5 Days #15 tab 05/27/24 New Medications: Ondansetron [Zofran] 4 mg PO Q8H PRN 5 Days #15 tab PRN Reason: Nausea / Vomiting Physician Discharge Instructions: Angelica Daily was treated for intractable Nausea and vomiting. During this admission, she has tolerated IV fluids, CLD, FLD, Gastric emptying study, and regular diet. She denies vomiting since admission. Dr. Silver and Dr. Mcgowan have been consulted for further evaluation to the cause of these episodes. Please follow up with Dr. Silver and Dr. Mcgowan. Please keep a journal of stress related events in your life including falls or trauma that could cause an emotional reaction or physical harm. Keep track of food and drinks to help pinpoint an allergic reaction. Avoid marijuana and weight loss medications as they can cause the same results. 1. Please call and schedule a follow-up appointment with your PCP in 3-5 days - Please follow-up with your PCP for medication refills/adjustments 2. Please call and schedule a follow-up appointment with Dr. Silver in 3-5 days 3. Please call and schedule a follow-up appointment with Dr. Mcgowan in one week 4. Continue soft GI diet and advance as tolerated 5. no activity restrictions 6. Return to the ED if symptoms worsen New medications zofran 4 mg ODT Q8H Activity: Ad meche Followup: Lambert Brown MD [Primary Care Provider] - Monroe Mcgowan MD [ASSOCIATE-ACTIVE - CAN ADMIT] -
--- NOTE | 2024-05-29 14:05 | RAD REPORT ---
EXAM DESCRIPTION: NM - Gastric Emptying Study - 05/29/2024 1:59 pm CLINICAL HISTORY: Intractable vomiting COMPARISON: None. TECHNIQUE: The patient was administered approximately 1.1 mCi Tc 99m sulfur colloid in solid egg cortez l. Imaging of the left upper quadrant was performed with time/activity curve generated. FINDINGS: Cine-loop images show normal progression of the radiopharmaceutical from the stomach into the small bowel. Time to one-half activity is 118.1 minute. Tracer retention at 120 minutes: 48.7%. N o other significant findings. IMPRESSION: Delayed gastric emptying.
--- NOTE | 2024-05-31 11:52 | EKG ---
Test Date: 2024-05-25 Test Time: 19:48:36 Flat Bed Operator: АЛЕКСАНДР MEASUREMENT RESULTS: Intervals: Rate: 80 IA: 178 QRSD: 82 QT: 390 QTc: 449 Larned: P: 83 IA: 178 QRS: 69 T: -26 INTERPRETIVE STATEMENTS: Normal sinus rhythm Nonspecific ST and T wave abnormality Abnormal ECG Compared to ECG 04/25/2024 13:06:38 ST (T wave) deviation now present Electronically Signed On 05-31-24 11:50:39 CDT by Casimiro Geronimo
== END 2024-05-27 17:15 | disposition home or self-care (01) | DRG 683 ==
LOC: ER 13:13 → ERHOLD 16:06 → 2ND 16:44
PROVIDERS: ADMIT Internal Medicine; ATTEND Internal Medicine
DX: N17.9 Acute kidney failure, unspecified (principal); K50.90 Crohn's disease, unspecified, without complications; E03.9 Hypothyroidism, unspecified; I10 Essential (primary) hypertension; M06.9 Rheumatoid arthritis, unspecified; E86.0 Dehydration; F32.A Depression, unspecified; F41.9 Anxiety disorder, unspecified; K42.9 Umbilical hernia without obstruction or gangrene; J45.909 Unspecified asthma, uncomplicated; F90.9 Attention-deficit hyperactivity disorder, unspecified type; M48.061 Spinal stenosis, lumbar region without neurogenic claudication; I25.2 Old myocardial infarction; R73.9 Hyperglycemia, unspecified; Z88.5 Allergy status to narcotic agent; Z88.2 Allergy status to sulfonamides; Z88.8 Allergy status to other drugs, medicaments and biological substances; Z79.82 Long term (current) use of aspirin; Z79.890 Hormone replacement therapy; Z79.899 Other long term (current) drug therapy
CPT/HCPCS: 36415; 70553; 74176; 78264; 80048; 80053; 80061; 80164; 81001; 82306; 82607; 83690; 83735; 84100; 84439; 84443; 84484; 85025; 93005; 96361; 96374; 96375; 99285; A9541; A9577; J1644; J2405; J2765; J7030

== ENCOUNTER 2024-11-06 07:58 | Day surgery (SDC) | payer BC, OTHER ==
[2024-11-06 08:45] LABS: MPV 10.2 fL (7.6-11.3); Platelets 162 thou/uL (152-406)
[2024-11-06 08:52] LABS: PT Prothrombin Time 10.5 SECONDS (9.4-12.5); PTT, Activated Partial Thromb 33.9 SECONDS (24.3-36.9); Protime INR 0.94
[2024-11-06 09:06] VITALS: BMI 29.2
--- NOTE | 2024-11-06 12:56 | RAD REPORT ---
XR SPINE LUMBAR PUNCTURE CLINICAL INDICATION: Cognitive impairment. R/O early Alzheimer's disease. LP. TECHNIQUE: The risks (including the risks of bleeding, infection, headache, and need for an epidural blood patch), benefits, and alternatives of the procedure were carefully explained to the patient who wished to proceed. Informed written consent was obtained and a timeout procedure was performed pr ior to beginning the study. The patient was positioned on the fluoroscopy table in an oblique prone position. The skin over the l er back was prepped and draped in the usual, sterile fashion. Local anesthesia was used for the subcutaneous soft tissues. A lumbar puncture was performed directing a spinal needle into the spinal canal under direct fluoroscopic guidance targeting left L3-4 level, until the return of clear CSF was observed. FINDINGS: CSF appearance: Clear and free-flowing Total CSF volume removed: 12 cc. Samples were sent to the lab per the ordering physician's orders. Following completion of the procedure the needle was withdrawn and a band-aid placed over the punctur e site. Postprocedural instructions were given to the patient. Complications: None IMPRESSION: Successful fluoroscopically-guided LP, as above. Total fluoroscopy time was 0:44 minutes.
[2024-11-06 13:06] LABS: Appearance CLEAR (CLEAR); Body Fluid Source CSF; Body Fluid WBC 2 /mm^3; Color of Supernate Not Xanthochromic (Not Xantho); Color of fluid Colorless (COLORLESS); Fluid Total Volume 8.5 ml; Tube # #2
[2024-11-06 13:08] LABS: CSF Glucose 58 mg/dL (40-70)
[2024-11-06 14:46] VITALS: O2SAT 98
[2024-11-06 15:15] VITALS: BP 124/70; TEMP 97.6
== END 2024-11-06 15:50 | disposition home or self-care (01) ==
LOC: RAD 07:58 → DS 15:50
PROVIDERS: ATTEND Psychiatry & Neurology Neurology with Special Qualifications in Child Neurology
PROC: 009U3ZX Drainage of Spinal Canal, Percutaneous Approach, Diagnostic (ICD-10-PCS; principal; 2024-11-06)
PROC: B01BZZZ Fluoroscopy of Spinal Cord (ICD-10-PCS; 2024-11-06)
DX: G31.84 Mild cognitive impairment of uncertain or unknown etiology (principal); I10 Essential (primary) hypertension; I49.9 Cardiac arrhythmia, unspecified; G43.909 Migraine, unspecified, not intractable, without status migrainosus; M47.12 Other spondylosis with myelopathy, cervical region
CPT/HCPCS: 36415; 62328; 77003; 82542; 82945; 84157; 85049; 85610; 85730; 89050

== ENCOUNTER 2025-01-31 07:52 | Day surgery (SDC) | payer OTHER ==
[2025-01-31 08:41] LABS: MPV 10.1 fL (7.6-11.3); Platelets 134 thou/uL (152-406)
[2025-01-31 08:49] LABS: PT Prothrombin Time 10.8 SECONDS (10-13.0); PTT, Activated Partial Thromb 29.3 SECONDS (27.2-37.4); Protime INR 0.94
[2025-01-31 09:23] VITALS: BMI 30.4
--- NOTE | 2025-01-31 12:48 | RAD REPORT ---
Procedure: Lumbar Puncture For Dx Preprocedure and procedure diagnosis: LUMBAR PUNCT Anesthesia: 8 mL of buffered 1% lidocaine Specimen: 9 mL of CSF Exposure: 0 minutes 7 seconds; 3:09 mGy TECHNIQUE: Prior to the procedure, the risks and benefits of a lumbar puncture were explained to the patient who consented fully to the procedure. Institution Librarian radiographs were performed. A radiopaque object was used to argenis the site of best entry into the lumbar canal on the skin. This a karolina was then prepped and draped in the usual sterile fashion. Lidocaine was used to anesthetize the skin. A 22-gauge spinal needle was then placed using fluoroscop ic guidance into the central canal of the lumbar spine. CSF was able to be obtained. A total of 9 mL was obtained. The patient tolerated the procedure well without immediate post procedure complication.
[2025-01-31 13:44] VITALS: BP 114/64; TEMP 97.7; O2SAT 96
== END 2025-01-31 13:38 | disposition home or self-care (01) ==
LOC: DS 07:52
PROVIDERS: ATTEND Psychiatry & Neurology Neurology with Special Qualifications in Child Neurology
PROC: [UNRECOGNIZED PROCEDURE] (principal; 2025-01-31)
PROC: 00JU3ZZ Inspection of Spinal Canal, Percutaneous Approach (ICD-10-PCS; 2025-01-31)
DX: G31.84 Mild cognitive impairment of uncertain or unknown etiology (principal); I10 Essential (primary) hypertension; I49.9 Cardiac arrhythmia, unspecified; G43.909 Migraine, unspecified, not intractable, without status migrainosus; M47.12 Other spondylosis with myelopathy, cervical region
CPT/HCPCS: 36415; 77003; 85049; 85610; 85730